=== PATIENT | female | born 1935 | race African-American/Black ===

== ENCOUNTER 2016-12-21 13:03 | Inpatient (IN) ==
[2016-12-21] MEDS ORDERED: Ipratropium/Albuterol Neb 3 ML IH ONE ×2 (13:20→17:32)
--- NOTE | 2016-12-21 13:31 | Emergency Department Note ---
Disposition Clinical Impression: Acute exacerbation of chronic obstructive airways disease Disposition: Admitted As Inpatient Condition: Fair SOB HPI - General Chief Complaint: ED Shortness of Breath/Dyspnea Stated Complaint: ENEDINA Time Seen by Provider: 12/21/16 13:07 Source: patient Nursing Notes Reviewed: Yes Vital Signs Reviewed: Yes - History of Present Illness Shortness of breath for the last several days which is constant but worse with exertion and she does have an associated dry cough, no hemoptysis. She does use home oxygen for COPD. Was seen by the home health nurse today. Also has chest pain which is pleuritic without radiation. It is intermittent lasting 2- 3 minutes at a time and currently does have chest discomfort now. She denies any pain or swelling of the lower extremities. Does have a history of congestive heart failure. Social history: No smoking - Related Data Home Medications Medication Instructions Recorded Confirmed Acetylcysteine [Nac] 600 mg PO TID 01/03/16 12/21/16 Aspirin 81 mg PO DAILY 01/03/16 12/21/16 Azathioprine [Imuran] 50 mg PO BID 01/03/16 12/21/16 Carvedilol [Coreg] 12.5 mg PO BID 01/03/16 12/21/16 Digoxin [Lanoxin] 0.125 mg PO DAILY 01/03/16 12/21/16 Furosemide [Lasix] 40 mg PO DAILY 01/03/16 12/21/16 Gabapentin [Neurontin] 600 mg PO HS 01/03/16 12/21/16 Guaifenesin [Mucinex] 600 mg PO TID 01/03/16 12/21/16 Levalbuterol [Xopenex INH] 2 puff PO Q6HR 01/03/16 12/21/16 Losartan Potassium [Cozaar] 100 mg PO DAILY 01/03/16 12/21/16 Lovastatin 40 mg PO DAILY 01/03/16 12/21/16 Melatonin [Melatin] 3 mg PO HS 01/03/16 12/21/16 Potassium Chloride [Klor-Con] 20 meq PO DAILY 01/03/16 12/21/16 Rivaroxaban [Xarelto] 20 mg PO DAILY 01/03/16 12/21/16 Verapamil HCl [Verapamil ER] 360 mg PO QAM 01/03/16 12/21/16 Dexlansoprazole [Dexilant] 60 mg PO BID 12/21/16 12/21/16 Famotidine [Pepcid] 40 mg PO DAILY 12/21/16 12/21/16 Previous Rx's Medication Instructions Recorded Sucralfate [Carafate] 1 gm PO BID #60 tablet 11/28/16 Allergies Allergy/AdvReac Type Severity Reaction Status Date / Time iodine Allergy Hives Verified 01/02/16 22:41 Penicillins [PCN] Allergy Hives Verified 01/02/16 22:41 ferric carboxymaltose AdvReac Intermediate Chest Pain Verified 08/17/16 16:11 [From Injectafer] IVP DYE Allergy Hives Uncoded 01/02/16 22:41 Review of Systems: Constitutional: No fever Vision: No blurred vision ENT: No rhinorrhea Respiratory: + cough Allergic: No allergies : No blood in urine GI: No blood in stool Hematologic: No bruising Dermatologic: No skin rash Musculoskeletal: No pain in the extremities Neuro: No numbness of the extremities Past Medical History - Past Medical History Medical history: Reports: atrial fibrillation, CHF, COPD, hyperlipidemia, hypertension, RA, other Surgical history: Reports: cancer surgery, cataract, knee replacement, orthopedic, other, pacemaker/AICD Psychiatric history: Reports: anxiety 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 EYES: PERRL, no scleral icterus. NOSE: The nose is normal in appearance without rhinorrhea Neck: No JVD Chest: Does have pain with palpation anterior chest wall RESP: Normal chest excursion with respiration; breath sounds with bilateral symmetric wheezing CARD: Regular rhythm, without murmurs, rub or gallop ABD: Non-distended; non-tender, soft,without rigidity, rebound or guarding, No pulsatile abdominal mass SKIN: Normal for age and race; warm and dry; no apparent lesions EXTREMITIES: Pulses are 2 plus and equal times 4 extremities, there is mild generalized lower extremity discomfort palpation and very minimal pretibial bilateral symmetric edema, no erythema or signs of infection - General General appearance: alert, anxious Course Vital Signs Temperature 99 F 12/21/16 13:04 Pulse Rate 65 12/21/16 13:04 Respiratory Rate 12 12/21/16 13:04 Blood Pressure 161/96 12/21/16 13:04 O2 Sat by Pulse Oximetry 97 12/21/16 13:04 Temperature 97.8 F 12/21/16 18:36 Pulse Rate 83 12/21/16 18:36 Respiratory Rate 18 12/21/16 20:28 Blood Pressure 154/66 12/21/16 18:36 O2 Sat by Pulse Oximetry 93 12/21/16 20:28 Oxygen Delivery Oxygen Delivery Nasal Cannula Shortness of Breath/Dyspnea - MDM Narrative Medical decision making narrative: Patient's symptoms most consistent with a COPD exacerbation and she will receive DuoNeb, chest x-ray, IV Decadron. If he does have an infiltrate this will be treated with antibiotics. Test results are pending. Review her EKG showing a paced rhythm with a rate of 66 1359 Did review the patient's lab results as well as x-ray. I did see the patient again a few minutes ago. The ventilation perfusion study is low probability and the patient will not be treated for pulmonary embolism. She is still clinically short of breath subjectively and I did write for another DuoNeb treatment and she will also receive IV Levaquin for COPD exacerbation. The hospitalist was paged. [phone] - Medical Records Medical records reviewed: Yes I reviewed the patient's medical records. - Lab Data Lab results reviewed: Yes I reviewed the patient's lab results. Result diagrams: 12/21/16 14:05 12/21/16 14:05 Lab Results 12/21/16 12/21/16 12/21/16 Range/Units 14:05 14:05 14:05 WBC 6.0 (4.3-11.1) K/mcL RBC 4.08 (3.82-4.97) M/mcL Hgb 11.1 L (11.5-15.4) g/dL Hct 37.2 (35.3-44.9) % MCV 91.2 (83.0-100.0) fL MCH 27.2 L (28.0-33.3) pg MCHC 29.8 L (31.6-35.5) g/dL RDW 12.5 (11.5-14.5) % Plt Count 208 (140-400) K/mcL MPV 9.9 (9.4-12.4) fL D-Dimer (0-500) ng/mLFEU Sodium 144 (136-145) mEq/L Potassium 3.8 (3.5-4.5) mEq/L Chloride 101 (98-109) mEq/L Carbon Dioxide 34 H (19-29) mEq/L BUN 11 (7-20) mg/dL Creatinine 0.73 (0.57-1.11) mg/dL Est GFR ( Amer) > 60 (> 60) Est GFR (Non-Af Amer) > 60 (> 60) BUN/Creatinine Ratio 15 (6-26) Glucose 81 (70-99) mg/dL Calculated Osmolality 296 (280-300) Calcium 9.2 (8.6-10.8) mg/dL Troponin I 0.02 (0-0.03) ng/mL B-Natriuretic Peptide (0-100) pg/mL 12/21/16 12/21/16 Range/Units 14:05 14:05 WBC (4.3-11.1) K/mcL RBC (3.82-4.97) M/mcL Hgb (11.5-15.4) g/dL Hct (35.3-44.9) % MCV (83.0-100.0) fL MCH (28.0-33.3) pg MCHC (31.6-35.5) g/dL RDW (11.5-14.5) % Plt Count (140-400) K/mcL MPV (9.4-12.4) fL D-Dimer 658 H (0-500) ng/mLFEU Sodium (136-145) mEq/L Potassium (3.5-4.5) mEq/L Chloride (98-109) mEq/L Carbon Dioxide (19-29) mEq/L BUN (7-20) mg/dL Creatinine (0.57-1.11) mg/dL Est GFR ( Amer) (> 60) Est GFR (Non-Af Amer) (> 60) BUN/Creatinine Ratio (6-26) Glucose (70-99) mg/dL Calculated Osmolality (280-300) Calcium (8.6-10.8) mg/dL Troponin I (0-0.03) ng/mL B-Natriuretic Peptide 87 (0-100) pg/mL - Radiology Data Radiology results reviewed: Yes I reviewed the patient's radiology results. Chest X-Ray 12/21/16 13:11 IMPRESSION: No acute process. D/ / Navin Eason MD / Navin Eason MD Interpreting Provider: Navin Eason MD Pulmonary Perfusion Imaging 12/21/16 15:00 IMPRESSION: Low probability for pulmonary embolism. D/ / Maico Wong MD / Maico Wong MD Interpreting Provider: Maico Wong MD
[2016-12-21] MEDS ORDERED: Dexamethasone 4 MG/ML VIAL IVP ONE (14:00)
[2016-12-21 14:13] LABS: Hematocrit 37.2 % (35.3-44.9); Hemoglobin 11.1 g/dL (11.5-15.4); Mean Corpuscular HGB Conc 29.8 g/dL (31.6-35.5); Mean Corpuscular Hemoglobin 27.2 pg (28.0-33.3); Mean Corpuscular Volume 91.2 fL (83.0-100.0); Mean Platelet Volume 9.9 fL (9.4-12.4); Platelet Count 208 K/mcL (140-400); Red Blood Count 4.08 M/mcL (3.82-4.97); Red Cell Distribution Width 12.5 % (11.5-14.5)
[2016-12-21 14:30] LABS: BUN/Creatinine Ratio 15 (6-26); Blood Urea Nitrogen 11 mg/dL (7-20); Calcium 9.2 mg/dL (8.6-10.8); Carbon Dioxide 34 mEq/L (19-29); Chloride 101 mEq/L (98-109); Glucose 81 mg/dL (70-99); Osmolality,Calculated 296 (280-300); Potassium 3.8 mEq/L (3.5-4.5); Sodium 144 mEq/L (136-145); eGFR For African Americans > 60 (> 60); eGFR For Non-African Americans > 60 (> 60)
[2016-12-21] MEDS: Dexamethasone 4 MG/ML VIAL IVP ONE (14:35)
[2016-12-21] MEDS ORDERED: Levofloxacin 750 MG/150 ML 750 MG/150 ML BAG IVPB ONE (17:32)
[2016-12-21] MEDS ORDERED: Naloxone 0.4 MG/ML INJ IVP PRN (18:05)
[2016-12-21] MEDS ORDERED: Acetaminophen 325 MG TABLET PO PRN (18:05)
--- NOTE | 2016-12-21 18:19 | Internal Med History&Physical ---
<Heide Cochran J - Last Filed: 12/21/16 18:34> Date of Encounter: 12/21/16 Time of Encounter: 18:17 Assessment and Plan (1) COPD (chronic obstructive pulmonary disease) Current visit: No Status: Chronic per hx. On home O2. Now with worsening SOB and wheezing on exam. D-dimer positive, V/Q scan with low probability. Cont IV Levaquin, steroids and nebs started in the ED. Sputum culture Pending. De-escalate ATB as clinically improves Qualifiers: COPD type: chronic bronchitis Chronic bronchitis type: simple Qualified Code(s): J41.0 - Simple chronic bronchitis (2) Chest pain Current visit: Yes Status: Acute With chest pain that started evening prior to admission; radiated to left arm. Initially not reproducible; however later reported CP with palpation. Hx CAD with LHC 2008. Initial troponin negative, no acute ST changes. Cycle troponin, NPO at midnight if troponins elevated stress test. Cont home ASA, BB, statin Qualifiers: Chest pain type: chest pain on breathing Qualified Code(s): R07.1 - Chest pain on breathing (3) Chronic systolic CHF (congestive heart failure) Current visit: Yes Status: Acute TTE 06/2016 with EF 40-45% and moderate systolic dysfunction. With trace lower extremity edema on exam, does not appear overtly overloaded. Continue home Lasix, ARB, digoxin (4) A-fib Current visit: No Status: Chronic per hx, rate controlled. Cont home CCB, BB, Xarelto Qualifiers: Atrial fibrillation type: paroxysmal Qualified Code(s): I48.0 - Paroxysmal atrial fibrillation (5) Anemia Current visit: No Status: Chronic Per history, follows with oncology. Hgb 11 which appears at baseline. Intermittently monitor Qualifiers: Anemia type: iron deficiency Iron deficiency anemia type: chronic blood loss Qualified Code(s): D50.0 - Iron deficiency anemia secondary to blood loss (chronic) (6) DVT prophylaxis Current visit: Yes Status: Acute Xarelto Internal Medicine - H&P: HPI Chief complaint: SOB and CP Admitted From: Home Plans for Post Hospital Care: Home History of present illness: Ms. Durant is a 81 year old female past medical history CAD, COPD, A. fib on several toe, CHF and chronic anemia who presented to [facility] on 12/21/2016 with complaints of shortness of breath and chest pain. She was found to be in a COPD exacerbation and was admitted for IV steroids, HTB and ACS rule out. Information obtained from chart review and patient report. Patient reports chest pain or shortness of breath started yesterday evening and has progressively gotten worse. Says her home health care RN says she did not look at advised her to go to the ER. Still with shortness of breath but says she feels a little better, reports intermittent nonproductive cough at times. No sick contacts that she is aware of. Her chest pain is midsternal radiates to left arm last night. Described as sharp worsened with a deep breath. Past Med Surg Social Fam HX - Past Medical History Medical history: atrial fibrillation, CHF, COPD, hyperlipidemia, hypertension, RA, other Psychiatric history: anxiety - Past Surgical History Surgical History: cancer surgery, cataract, knee replacement, orthopedic, other , pacemaker/AICD - Social History Smoking Status: Never smoker Smokeless Tobacco Status: No Alcohol use: none Drug use: none - Family History Sister Hx Family Endocrine Disorder: Yes Internal Medicine - H&P: Meds Acetylcysteine [Nac] 600 mg PO TID 01/03/16 [History] Aspirin 81 mg PO DAILY 01/03/16 [History] Azathioprine [Imuran] 50 mg PO BID 01/03/16 [History] Carvedilol [Coreg] 12.5 mg PO BID 01/03/16 [History] Digoxin [Lanoxin] 0.125 mg PO DAILY 01/03/16 [History] Furosemide [Lasix] 40 mg PO DAILY 01/03/16 [History] Gabapentin [Neurontin] 600 mg PO HS 01/03/16 [History] Guaifenesin [Mucinex] 600 mg PO TID 01/03/16 [History] Levalbuterol [Xopenex INH] 2 puff PO Q6HR 01/03/16 [History] Losartan Potassium [Cozaar] 100 mg PO DAILY 01/03/16 [History] Lovastatin 40 mg PO DAILY 01/03/16 [History] Melatonin [Melatin] 3 mg PO HS 01/03/16 [History] Potassium Chloride [Klor-Con] 20 meq PO DAILY 01/03/16 [History] Rivaroxaban [Xarelto] 20 mg PO DAILY 01/03/16 [History] Verapamil HCl [Verapamil ER] 360 mg PO QAM 01/03/16 [History] Sucralfate [Carafate] 1 gm PO BID #60 tablet 11/28/16 [Rx] Dexlansoprazole [Dexilant] 60 mg PO BID 12/21/16 [History] Famotidine [Pepcid] 40 mg PO DAILY 12/21/16 [History] Allergies iodine Allergy (Verified 01/02/16 22:41) Hives Penicillins [PCN] Allergy (Verified 01/02/16 22:41) Hives ferric carboxymaltose [From Injectafer] Adverse Reaction (Intermediate, Verified 08/17/16 16:11) Chest Pain 08/17/16 ABOUT 20MIN AFTER INFUSION COMPLETE PT REPORTED LIGHT HEADEDNESS, CHEST PAIN, AND HAD ELEVATED BLOOD PRESSURE. HYDROCORTISONE AND BENADRYL GIVEN WITH GOOD RELIEF. IVP DYE Allergy (Uncoded 01/02/16 22:41) Hives All Systems PM: A 10-system review of systems was performed and is negative for pertinent findings except as documented above in the HPI. - Constitutional Constitutional: no chills, no fever(s), no night sweats - EENT Eyes: no change in vision, no discharge, no pain, no photophobia Ears: no ear discharge, no ear pain, no tinnitus Nose, mouth and throat: no dysphagia, no nasal discharge, no neck pain, no sore throat - Cardiovascular Cardiovascular ROS IM: chest pain, dyspnea, dyspnea on exertion, no diaphoresis , no lightheadedness, no palpitations, no syncope - Respiratory Respiratory: dyspnea on exertion, no cough, no dyspnea, no wheezing, no excessive phlegm production - Gastrointestinal Gastrointestinal: no abdominal pain, no diarrhea, no hematemesis, no hematochezia, no melena, no nausea, no vomiting - Genitourinary Genitourinary: no change in urinary stream, no dysuria, no flank pain, no hematuria - Musculoskeletal Musculoskeletal ROS IM: no numbness, no tingling - Integumentary Integumentary IM: no rash, no unusual bruising - Neurological Neurological ROS: no confusion, no convulsions, no focal weakness, no numbness, no tingling, no tremor(s) - Hematologic/Lymphatic Hematologic/Lymphatic: no easy bruising - Constitutional Vitals: Temp Pulse Resp BP Pulse Ox 99 F 62 18 166/111 98 12/21/16 13:04 12/21/16 17:14 12/21/16 17:50 12/21/16 17:14 12/21/16 17:50 General appearance: Present: mild distress, A&O X 3 - Head Head exam: Present: atraumatic, normocephalic - Eye Eye exam: Present: PERRL, conjuntiva pink, sclera anicteric Pupils: Present: PERRL - Neck Neck exam general surgery: Present: supple, trachea midline. Absent: lymphadenopathy - Respiratory Respiratory exam: Present: respiratory distress, wheezes. Absent: accessory muscle use, rales, rhonchi - Cardiovascular Cardiovascular exam: Present: RRR (PPM), +S1, +S2. Absent: diastolic murmur, gallop, rubs, systolic murmur - GI/Abdominal GI/Abdominal exam: Present: normal bowel sounds, soft, no peritoneal signs. Absent: distended, tenderness - Extremities Exam Extremities exam: Present: warm, radial pulses palpable and symetrical. Absent : calf tenderness, cyanotic, pedal edema - Neurological Exam Neurological exam: Present: CN II-XII intact, oriented X3, no focal deficits. Absent: pronater drift, facial droop, speech deficit - Skin Skin exam: Present: dry, intact Internal Med - H&P Results - Labs CBC & Chem 7: 12/21/16 14:05 12/21/16 14:05 <Moisés Lowry - Last Filed: 12/21/16 18:48> Date of Encounter: 12/21/16 Time of Encounter: 18:00 Internal Medicine - H&P: HPI History of present illness: Ms. Durant is a 81 year old female All Systems PM: A 10-system review of systems was performed and is negative for pertinent findings except as documented above in the HPI. - Constitutional Vitals: Temp Pulse Resp BP Pulse Ox 97.8 F 83 16 154/66 94 12/21/16 18:36 12/21/16 18:36 12/21/16 18:36 12/21/16 18:36 12/21/16 18:36 Internal Med - H&P Results - Labs CBC & Chem 7: 12/21/16 14:05 12/21/16 14:05 - Attending Attestation I examined this patient and my medical decision-making was reviewed with the nurse practitioner. I agree with the documented history of present illness, review of systems, past medical, surgical social and family histories and examination findings, disposition and treatment plan as described above except to any changes set forth below. 81-year-old female patient with history of COPD, chronic respiratory failure on home oxygen, A. fib status post ablation and pacemaker placement, chronic congestive heart failure presented to the ER with complaints of worsening shortness of breath along with some cough. She has also been having chest pain which worsens with deep breaths. It is central in location and radiates to the left arm. No sputum production. Was treated with bronchodilators and Decadron in the ER with some improvement in her symptoms. On examination she still has significant expiratory wheezing and reproducible chest wall tenderness. S1-S2 normal.. EKG shows paced rhythm. Chest x-ray does not show any acute infiltrate. Acute exacerbation of COPD: We will treat with scheduled bronchodilators, O2 supplementation, IV steroids. High risk for complications. Chest pain: Does have history of hypertension and chronic congestive heart failure. She does have reproducible chest wall tenderness. Pain could be related to costochondritis but given her history, we will trend troponins. We will get 2-D echocardiogram to look for wall motion abnormalities. Chronic CHF systolic: Not in acute exacerbation. Continue home medications. A. fib status post ablation and permanent pacemaker: Continue Xarelto for anticoagulation.. Heart rate is well controlled.
[2016-12-21] MEDS: Gabapentin 300 MG CAPSULE PO SCH (20:15)
[2016-12-21] MEDS: Ipratropium/Albuterol Neb 3 ML IH SCH ×2 (20:28→23:49)
[2016-12-21] MEDS: Melatonin 3 MG TABLET PO SCH (22:05)
[2016-12-21] MEDS: methylPREDNISolone 125 MG/2 ML VIAL IVP SCH (23:30)
[2016-12-22 02:18] LABS: Basophils % 0.1 %; Eosinophils % 0.1 %; Hematocrit 36.3 % (35.3-44.9); Hemoglobin 11.4 g/dL (11.5-15.4); Immature Granulocytes % 0.4 % (0-4); Lymphocytes # 0.3 K/mcL (0.6-4.6); Lymphocytes % 3.7 %; Mean Corpuscular HGB Conc 31.4 g/dL (31.6-35.5); Mean Corpuscular Hemoglobin 28.6 pg (28.0-33.3); Mean Corpuscular Volume 91.2 fL (83.0-100.0); Mean Platelet Volume 10.7 fL (9.4-12.4); Monocytes # 0.1 K/mcL (0.0-1.3); Monocytes % 0.8 %; Neutrophils # 6.9 K/mcL (1.6-8.9); Platelet Count 205 K/mcL (140-400); Red Blood Count 3.98 M/mcL (3.82-4.97); Red Cell Distribution Width 12.5 % (11.5-14.5); Segmented Neutrophils % 94.9 %
[2016-12-22 02:38] LABS: Alanine Aminotransferase 9 Units/L (0-55); Albumin 3.2 g/dL (3.5-5.0); Albumin/Globulin Ratio 0.8 (1.1-2.2); Alkaline Phosphatase 101 Units/L (38-126); Aspartate Amino Transferase 13 Units/L (5-34); BUN/Creatinine Ratio 17 (6-26); Bilirubin,Total 0.3 mg/dL (0.2-1.2); Blood Urea Nitrogen 14 mg/dL (7-20); Calcium 9.4 mg/dL (8.6-10.8); Carbon Dioxide 31 mEq/L (19-29); Chloride 101 mEq/L (98-109); Chol/HDL Ratio 2.8 (0-4.9); Cholesterol 162 mg/dL (< 200); Globulin 3.8 g/dL (2.4-3.5); Glucose 162 mg/dL (70-99); HDL Cholesterol 58 mg/dL (40-59); LDL Cholesterol,Calculated 84 mg/dL (0-99); Osmolality,Calculated 298 (280-300); Potassium 3.8 mEq/L (3.5-4.5); Sodium 142 mEq/L (136-145); Triglycerides 99 mg/dL (< 150); eGFR For African Americans > 60 (> 60); eGFR For Non-African Americans > 60 (> 60)
[2016-12-22] MEDS: Ipratropium/Albuterol Neb 3 ML IH SCH ×6 (04:34→23:56)
[2016-12-22] MEDS: Levalbuterol 1 PUFF INHALER IH SCH ×4 (04:36→19:44)
[2016-12-22] MEDS: methylPREDNISolone 125 MG/2 ML VIAL IVP SCH ×3 (08:40→23:26)
[2016-12-22] MEDS: Verapamil ER (24 HR) 180 MG TABLET.ER PO SCH (08:41)
[2016-12-22] MEDS: Famotidine 20 MG TABLET PO SCH (08:41)
[2016-12-22] MEDS: *HR* Digoxin 0.125 MG TABLET PO SCH (08:41)
[2016-12-22] MEDS: Furosemide 40 MG TABLET PO SCH (08:41)
[2016-12-22] MEDS: Aspirin 81 MG TAB.CHEW PO SCH (08:41)
[2016-12-22] MEDS: *HR* Rivaroxaban 10 MG TABLET PO SCH (08:41)
[2016-12-22] MEDS: *HR* Morphine 2 MG/ML SYRINGE IVP PRN ×2 (08:42→14:00)
[2016-12-22] MEDS: Levofloxacin 500 MG/100 ML 500 MG/100 ML BAG IVPB SCH (08:42)
[2016-12-22] MEDS ORDERED: Azithromycin 500 MG in D5% in Water 250 ML IVPB SCH (10:00)
[2016-12-22] MEDS: *HR* HYDROcodone/Acet 5/325 mg TABLET PO PRN ×2 (15:23→22:10)
--- NOTE | 2016-12-22 17:16 | Internal Med Progress Note ---
Date of Encounter: 12/22/16 Time of Encounter: 09:25 - Assessment and plan (1) COPD (chronic obstructive pulmonary disease) Current Visit: No Status: Chronic Assessment and plan: Acute exacerbation. Patient has dry, hacking cough that is frequent, nonproductive. She is receiving IV antibiotics, scheduled DuoNeb absent, steroids. She is afebrile. I have added Mucinex scheduled twice a day. Continue to monitor patient's condition Telemetry Continuous pulse ox IV antibiotics D escalated by mouth Steroids Mucinex Chest X-Ray 12/21/16 13:11 IMPRESSION: No acute process. D/ / Navin Eason MD / Navin Eason MD Interpreting Provider: Navin Eason MD Pulmonary Perfusion Imaging 12/21/16 15:00 IMPRESSION: Low probability for pulmonary embolism. D/ / Maico Wong MD / Maico Wong MD Interpreting Provider: Maico Wong MD Qualifiers: COPD type: chronic bronchitis Chronic bronchitis type: simple Qualified Code(s): J41.0 - Simple chronic bronchitis (2) A-fib Current Visit: No Status: Chronic Assessment and plan: Rate controlled. Continue calcium channel erika, beta erika, anticoagulation. Qualifiers: Atrial fibrillation type: paroxysmal Qualified Code(s): I48.0 - Paroxysmal atrial fibrillation (3) Anemia Current Visit: No Status: Chronic Assessment and plan: Chronic. Patient follows with oncology. Hemoglobin is stable and at baseline at this time. Continue to monitor. Qualifiers: Anemia type: iron deficiency Iron deficiency anemia type: chronic blood loss Qualified Code(s): D50.0 - Iron deficiency anemia secondary to blood loss (chronic) (4) Chest pain Current Visit: Yes Status: Acute Assessment and plan: Patient had chest pain started the evening prior to admission, it radiated to her left arm. Patient told admitting physician chest pain was palpable and re- created. History of coronary artery disease with [facility] in 2008. Troponins have been negative, BNP was negative 4 after an elevated d-dimer of 658. Patient also has chest pain from dry, hacking cough that she has. Echocardiogram was done today showed LVEF of 45% with mildly dilated left ventricle. There is mild concentric left ventricular hypertrophy and mild global left ventricular systolic dysfunction. There is atypical septal motion consistent with a paced rhythm normal right ventricular structure and function and superiorly dilated left atrium. Somewhat mildly dilated right atrium with mild pulmonary hypertension. There is a device lead visualized in the right atrium and right ventricle. There is no significant valvular dysfunction. Remains unchanged from prior study in June,. She has been seen by cardiology inpatient approximately one year ago. Qualifiers: Chest pain type: chest pain on breathing Qualified Code(s): R07.1 - Chest pain on breathing (5) Chronic systolic CHF (congestive heart failure) Current Visit: Yes Status: Chronic Assessment and plan: Patient had SINDY in June 2016 with EF of 40-45% and moderate systolic dysfunction. Patient has minimal lower extremity ankle edema, there are no crackles heard. She appears to be euvolemic. She will continue her Lasix, ARB , and dig (6) DVT prophylaxis Current Visit: Yes Status: Acute Assessment and plan: She is currently anticoagulated on Xarelto. - Time Spent With Patient less than 15 minutes - Subjective Interval history: Patient was seen and assessed at about 9:25 AM. She is pleasant, alert, oriented with a dry, hacking cough. It is frequent. Patient reports rib pain from coughing. Wheezing and rhonchi are heard posteriorly. I have added Mucinex scheduled, as well as DuoNeb scheduled. He is wearing supplemental oxygen, sats are 92%. Patient is receiving IV Levaquin. Continue the steroids and nebulizers. I did not attempt to de-escalate the IV antibiotics today due to the fact that her IV infiltrated and we were not able to obtain IV access for several hours. - Constitutional Vitals: Temp Pulse Resp BP Pulse Ox 98.3 F 59 16 122/49 94 12/22/16 15:22 12/22/16 15:22 12/22/16 16:13 12/22/16 15:22 12/22/16 16:13 General appearance: Present: mild distress, A&O X 3, pleasant, answers questions appropriately - Head Head exam: Present: normal inspection - Eye Eye exam: Present: normal appearance, conjuntiva pink - ENT ENT exam: Present: mucous membranes moist, normal exam - Neck Neck exam general surgery: Absent: lymphadenopathy, tenderness - Respiratory Respiratory exam: Present: chest wall tenderness, decreased breath sounds, rhonchi, wheezes. Absent: accessory muscle use, rales, respiratory distress - Cardiovascular Cardiovascular exam: Present: RRR, +S1, +S2 - Expanded Cardiovascular Exam Peripheral pulses: 1+: Dorsalis Pedis (L) PM, Dorsalis Pedis (R) PM - GI/Abdominal GI/Abdominal exam: Present: normal bowel sounds, soft. Absent: hepatomegaly, tenderness - Extremities Exam Extremities exam: Present: warm, radial pulses palpable and symetrical. Absent : tenderness - Neurological Exam Neurological exam: Present: alert, oriented X3. Absent: facial droop, speech deficit - Skin Skin exam: Present: dry, intact, warm. Absent: rash Internal Medicine: Result - Labs CBC & Chem 7: 12/22/16 01:32 12/22/16 01:32 Labs: Short CBC 12/22/16 Range/Units 01:32 WBC 7.3 (4.3-11.1) K/mcL Hgb 11.4 L (11.5-15.4) g/dL Hct 36.3 (35.3-44.9) % Plt Count 205 (140-400) K/mcL Neutrophils # 6.9 (1.6-8.9) K/mcL BMP 12/22/16 01:32 Sodium 142 Potassium 3.8 Chloride 101 Carbon Dioxide 31 H BUN 14 Creatinine 0.84 Glucose 162 H Calcium 9.4 Cardiac Enzymes 12/21/16 12/22/16 12/22/16 Range/Units 22:03 01:32 06:59 Troponin I 0.01 0.02 0.01 (0-0.03) ng/mL Liver Function 12/22/16 Range/Units 01:32 Total Bilirubin 0.3 (0.2-1.2) mg/dL AST 13 (5-34) Units/L ALT 9 (0-55) Units/L Alkaline Phosphatase 101 (38-126) Units/L Albumin 3.2 L (3.5-5.0) g/dL - ABG Interpretation ABG results: PT/INR, D-dimer D-Dimer 658 ng/mLFEU (0-500) H 12/21/16 14:05 Consult Discharge Plan - Plan Referrals: Cholo Leslie MD [Primary Care Provider] -
--- NOTE | 2016-12-22 17:25 | Electrocardiograph Report ---
[address] [place] [address] Test Date: 2016-12-21 Pat Name: Ellie Durant Department: 102 Room: 3B23 Gender: F [employer]r: Azeem : 1935 Requested By: Chandrakant Singh Order Number: [id number] Reading MD: Zara Padilla Measurements Intervals [place] Rate: 66 P: 141 [place]: 247 QRS: -50 QRSD: 141 T: 80 QT: 404 QTc: 418 Interpretive Statements ELECTRONIC ATRIAL PACEMAKER ELECTRONIC VENTRICULAR PACEMAKER ABNORMAL RHYTHM ECG Electronically Signed On 12-22-2016 17:24:33 EDT by Zara Padilla
[2016-12-22] MEDS: Gabapentin 300 MG CAPSULE PO SCH (21:00)
[2016-12-22] MEDS: Melatonin 3 MG TABLET PO SCH (21:00)
[2016-12-23] MEDS: Ipratropium/Albuterol Neb 3 ML IH SCH ×6 (03:55→23:51)
[2016-12-23] MEDS: Levalbuterol 1 PUFF INHALER IH SCH ×4 (03:57→19:42)
[2016-12-23] MEDS: *HR* HYDROcodone/Acet 5/325 mg TABLET PO PRN (05:40)
[2016-12-23] MEDS: Levofloxacin 500 MG/100 ML 500 MG/100 ML BAG IVPB SCH (09:29)
[2016-12-23] MEDS: Aspirin 81 MG TAB.CHEW PO SCH (09:30)
[2016-12-23] MEDS: Verapamil ER (24 HR) 180 MG TABLET.ER PO SCH (09:32)
[2016-12-23] MEDS: methylPREDNISolone 125 MG/2 ML VIAL IVP SCH ×3 (09:33→23:18)
[2016-12-23] MEDS: *HR* Digoxin 0.125 MG TABLET PO SCH (09:34)
[2016-12-23] MEDS: Famotidine 20 MG TABLET PO SCH (09:34)
[2016-12-23] MEDS: *HR* Rivaroxaban 10 MG TABLET PO SCH (09:34)
[2016-12-23] MEDS: Furosemide 40 MG TABLET PO SCH (09:36)
--- NOTE | 2016-12-23 10:38 | Internal Med Progress Note ---
Date of Encounter: 12/23/16 Time of Encounter: 10:10 - Assessment and plan (1) COPD (chronic obstructive pulmonary disease) Current Visit: No Status: Chronic Assessment and plan: Acute exacerbation. Patient has dry, hacking cough that is frequent, nonproductive. She is receiving by mouth antibiotics due to repeated IV infiltration, scheduled DuoNeb absent, steroids, Mucinex twice a day. She is afebrile. Continue to monitor patient's condition Telemetry Continuous pulse ox Continue antibiotics Steroids Mucinex Chest X-Ray 12/21/16 13:11 IMPRESSION: No acute process. D/ / Navin Eason MD / Navin Eason MD Interpreting Provider: Navin Eason MD Pulmonary Perfusion Imaging 12/21/16 15:00 IMPRESSION: Low probability for pulmonary embolism. D/ / Maico Wong MD / Maico Wong MD Interpreting Provider: Maico Wong MD Qualifiers: COPD type: chronic bronchitis Chronic bronchitis type: simple Qualified Code(s): J41.0 - Simple chronic bronchitis (2) A-fib Current Visit: No Status: Chronic Assessment and plan: Rate controlled. Continue calcium channel erika, beta erika, anticoagulation. Rate in the 60s and regular. Qualifiers: Atrial fibrillation type: paroxysmal Qualified Code(s): I48.0 - Paroxysmal atrial fibrillation (3) Anemia Current Visit: No Status: Chronic Assessment and plan: Hemoglobin has remained steady, 11.4 today. Continue to monitor and repair to transfuse as necessary. Qualifiers: Anemia type: iron deficiency Iron deficiency anemia type: chronic blood loss Qualified Code(s): D50.0 - Iron deficiency anemia secondary to blood loss (chronic) (4) Chest pain Current Visit: Yes Status: Acute Assessment and plan: Echocardiogram was done, showed LVEF of 45% with mildly dilated left ventricle. There is mild concentric left ventricular hypertrophy and mild global left ventricular systolic dysfunction. There is atypical septal motion consistent with a paced rhythm normal right ventricular structure and function and superiorly dilated left atrium. Somewhat mildly dilated right atrium with mild pulmonary hypertension. There is a device lead visualized in the right atrium and right ventricle. There is no significant valvular dysfunction. Remains unchanged from prior study in June,. She has been seen by cardiology inpatient approximately one year ago. She now denies chest pain today and reports right mid back pain from cough. We will continue to monitor her condition. She remains on telemetry. We are monitoring pulse ox and treating COPD exacerbation. Qualifiers: Chest pain type: chest pain on breathing Qualified Code(s): R07.1 - Chest pain on breathing (5) Chronic systolic CHF (congestive heart failure) Current Visit: Yes Status: Chronic Assessment and plan: Patient had SINDY in June 2016 with EF of 40-45% and moderate systolic dysfunction. Patient has minimal lower extremity ankle edema, there are no crackles heard. She appears to be euvolemic. She will continue her Lasix, ARB , and dig Echocardiogram on December 21 remains largely unchanged from study in June, other than the mildly dilated left ventricle that was normal in size, wall thickness and function in June. (6) DVT prophylaxis Current Visit: Yes Status: Acute Assessment and plan: She is currently anticoagulated on Xarelto. - Time Spent With Patient less than 15 minutes - Subjective Interval history: Patient was seen at 10:10 AM. I was called into the room by primary nurse. Patient's IV has infiltrated and patient is exceptionally tearful. The same scenario happened yesterday. I started patient's IV yesterday she was exceptionally tearful, anxious during the procedure. I discussed patient feeling anxiety, she agreed. I will start her on Ativan 0.5 mg by mouth 3 times a day when necessary anxiety. Patient is agreeable to this. Patient does not appear to be coughing as much today, however, she reports the cough is just as frequent as it was. Cough is dry and nonproductive and she reports no relief from the Mucinex. She still has expiratory wheezing heard in all posterior haque and upper anterior. She is still on oxygen. She is not in respiratory distress, she speaks easily in sentences. She reports posterior right back pain with cough. We will continue the Levaquin by mouth since her IVs have infiltrated, continue the steroids and nebulizers when necessary. Patient is not ready for discharge. - Constitutional Vitals: Temp Pulse Resp BP Pulse Ox 97.4 F L 65 16 163/76 96 12/23/16 06:59 12/23/16 06:59 12/23/16 07:45 12/23/16 07:45 12/23/16 07:45 General appearance: Present: mild distress, A&O X 3, pleasant, answers questions appropriately - Head Head exam: Present: normal inspection - Eye Eye exam: Present: normal appearance, conjuntiva pink - ENT ENT exam: Present: mucous membranes moist, normal exam - Neck Neck exam general surgery: Present: thyromegaly. Absent: lymphadenopathy, tenderness - Respiratory Respiratory exam: Present: chest wall tenderness, decreased breath sounds, wheezes. Absent: CTAB, rales, respiratory distress, rhonchi, tachypnea - Cardiovascular Cardiovascular exam: Present: RRR, +S1, +S2. Absent: diastolic murmur, irregular rhythm, JVD, systolic murmur - GI/Abdominal GI/Abdominal exam: Present: normal bowel sounds, soft. Absent: hepatomegaly, tenderness - Extremities Exam Extremities exam: Present: normal capillary refill, warm, radial pulses palpable and symetrical. Absent: pedal edema, tenderness - Neurological Exam Neurological exam: Present: alert, oriented X3, no focal deficits. Absent: facial droop, speech deficit - Skin Skin exam: Present: dry, intact, normal color, rash. Absent: warm Internal Medicine: Result - Labs CBC & Chem 7: 12/22/16 01:32 12/22/16 01:32 - ABG Interpretation ABG results: PT/INR, D-dimer D-Dimer 658 ng/mLFEU (0-500) H 12/21/16 14:05 Consult Discharge Plan - Plan Referrals: Cholo Leslie MD [Primary Care Provider] -
[2016-12-23] MEDS: levoFLOXacin 750 MG TABLET PO SCH (11:13)
[2016-12-23] MEDS: *HR* LORazepam 0.5 MG TABLET PO PRN (11:13)
[2016-12-23] MEDS: Gabapentin 300 MG CAPSULE PO SCH (20:37)
[2016-12-23] MEDS: Melatonin 3 MG TABLET PO SCH (20:38)
[2016-12-24] MEDS: *HR* HYDROcodone/Acet 5/325 mg TABLET PO PRN (03:31)
[2016-12-24 03:37] LABS: BUN/Creatinine Ratio 25 (6-26); Blood Urea Nitrogen 20 mg/dL (7-20); Carbon Dioxide 32 mEq/L (19-29); Chloride 97 mEq/L (98-109); Glucose 253 mg/dL (70-99); Osmolality,Calculated 303 (280-300); Potassium 3.3 mEq/L (3.5-4.5); Sodium 141 mEq/L (136-145); eGFR For African Americans > 60 (> 60); eGFR For Non-African Americans > 60 (> 60)
[2016-12-24 03:41] LABS: Basophils % 0.1 %; Hematocrit 36.7 % (35.3-44.9); Hemoglobin 11.1 g/dL (11.5-15.4); Immature Granulocytes % 1.1 % (0-4); Lymphocytes # 0.2 K/mcL (0.6-4.6); Lymphocytes % 2.1 %; Mean Corpuscular HGB Conc 30.2 g/dL (31.6-35.5); Mean Corpuscular Hemoglobin 27.7 pg (28.0-33.3); Mean Corpuscular Volume 91.5 fL (83.0-100.0); Mean Platelet Volume 10.6 fL (9.4-12.4); Monocytes # 0.2 K/mcL (0.0-1.3); Monocytes % 1.9 %; Neutrophils # 9.8 K/mcL (1.6-8.9); Platelet Count 208 K/mcL (140-400); Red Blood Count 4.01 M/mcL (3.82-4.97); Red Cell Distribution Width 12.4 % (11.5-14.5); Segmented Neutrophils % 94.8 %
[2016-12-24] MEDS: Ipratropium/Albuterol Neb 3 ML IH SCH ×6 (03:54→23:51)
[2016-12-24] MEDS: Levalbuterol 1 PUFF INHALER IH SCH ×4 (03:56→23:34)
[2016-12-24] MEDS ORDERED: Ondansetron 4 MG/2 ML VIAL IVP PRN (06:47)
[2016-12-24] MEDS: Famotidine 20 MG TABLET PO SCH (07:00)
[2016-12-24] MEDS: *HR* Rivaroxaban 10 MG TABLET PO SCH (07:00)
[2016-12-24] MEDS: Furosemide 40 MG TABLET PO SCH (07:00)
[2016-12-24] MEDS: Aspirin 81 MG TAB.CHEW PO SCH (07:01)
[2016-12-24] MEDS: Verapamil ER (24 HR) 180 MG TABLET.ER PO SCH (07:01)
[2016-12-24] MEDS: *HR* Digoxin 0.125 MG TABLET PO SCH (07:02)
[2016-12-24] MEDS: methylPREDNISolone 125 MG/2 ML VIAL IVP SCH ×3 (07:05→23:43)
--- NOTE | 2016-12-24 10:56 | Internal Med Progress Note ---
Date of Encounter: 12/24/16 Time of Encounter: 10:30 - Assessment and plan (1) COPD (chronic obstructive pulmonary disease) Current Visit: No Status: Chronic Assessment and plan: Patient appears to be improved today. She says that her cough is less frequent , still dry and nonproductive. Lungs are clear, but diminished. Patient will continue steroids, Mucinex breathing treatments and antibiotics. Patient has continuous pulse ox we will continue to monitor labs and vital signs. Qualifiers: COPD type: chronic bronchitis Chronic bronchitis type: simple Qualified Code(s): J41.0 - Simple chronic bronchitis (2) A-fib Current Visit: No Status: Chronic Assessment and plan: When I assessed patient this morning, rate was in the 60s. Rhythm was regular. His rate controlled. She is taking 12.5 mg carvedilol twice daily and digoxin , as well. Cardiology consult for bradycardia. Qualifiers: Atrial fibrillation type: paroxysmal Qualified Code(s): I48.0 - Paroxysmal atrial fibrillation (3) Anemia Current Visit: No Status: Chronic Assessment and plan: Hemoglobin has remained steady, 11.4 today. Continue to monitor and repair to transfuse as necessary. Qualifiers: Anemia type: iron deficiency Iron deficiency anemia type: chronic blood loss Qualified Code(s): D50.0 - Iron deficiency anemia secondary to blood loss (chronic) (4) Chest pain Current Visit: Yes Status: Acute Assessment and plan: Echocardiogram was done, showed LVEF of 45% with mildly dilated left ventricle. There is mild concentric left ventricular hypertrophy and mild global left ventricular systolic dysfunction. There is atypical septal motion consistent with a paced rhythm normal right ventricular structure and function and superiorly dilated left atrium. Somewhat mildly dilated right atrium with mild pulmonary hypertension. There is a device lead visualized in the right atrium and right ventricle. There is no significant valvular dysfunction. Remains unchanged from prior study in June,. She has been seen by cardiology inpatient approximately one year ago. She now denies chest pain today. We will continue to monitor her condition. She remains on telemetry. We are monitoring pulse ox and treating COPD exacerbation. Qualifiers: Chest pain type: chest pain on breathing Qualified Code(s): R07.1 - Chest pain on breathing (5) Chronic systolic CHF (congestive heart failure) Current Visit: Yes Status: Chronic Assessment and plan: Patient had SINDY in June 2016 with EF of 40-45% and moderate systolic dysfunction. Patient has minimal lower extremity ankle edema, there are no crackles heard. She appears to be euvolemic. She will continue her Lasix, ARB , and dig Echocardiogram on December 21 remains largely unchanged from study in June, other than the mildly dilated left ventricle that was normal in size, wall thickness and function in June. (6) DVT prophylaxis Current Visit: Yes Status: Acute Assessment and plan: She is currently anticoagulated on Xarelto. - Time Spent With Patient less than 15 minutes - Subjective Interval history: Patient was seen and assessed about 10:30 AM. She states that she does not feel well again today. She reports that she is having episodes of bradycardia and shortness of breath. She is lying in bed currently though wet washcloth on her forehead. Patient does have a pacemaker, and states that cardiology has told her in the past that she will most likely need to have a defibrillator at some point. I spoke with the primary nurse, I never been made aware of this bradycardia other than by the patient. Primary nurse reports that she is having bradycardia lasting about 30 seconds, every 2 hours or so. I have put in a cardiology consult. When I saw patient her resting heart rate was 60, rate was regular. - Constitutional Vitals: Temp Pulse Resp BP Pulse Ox 98.0 F 59 16 133/69 98 12/24/16 06:28 12/24/16 06:28 12/24/16 07:25 12/24/16 09:34 12/24/16 08:00 General appearance: Present: mild distress, A&O X 3, pleasant, answers questions appropriately - Head Head exam: Present: normal inspection - Eye Eye exam: Present: normal appearance, conjuntiva pink - Neck Neck exam general surgery: Present: normal inspection. Absent: lymphadenopathy , tenderness - Respiratory Respiratory exam: Present: CTAB. Absent: chest wall tenderness, rales, respiratory distress, stridor, wheezes - Cardiovascular Cardiovascular exam: Present: bradycardia, RRR, +S1, +S2. Absent: diastolic murmur, irregular rhythm, rubs, systolic murmur - GI/Abdominal GI/Abdominal exam: Present: normal bowel sounds, soft. Absent: distended, hepatomegaly, tenderness - Extremities Exam Extremities exam: Present: normal capillary refill, normal inspection. Absent: pedal edema, tenderness - Neurological Exam Neurological exam: Present: alert, oriented X3. Absent: no focal deficits, facial droop, speech deficit - Skin Skin exam: Present: dry, normal color, warm. Absent: rash Internal Medicine: Result - Labs CBC & Chem 7: 12/24/16 02:34 12/24/16 02:34 Labs: Short CBC 12/24/16 Range/Units 02:34 WBC 10.4 (4.3-11.1) K/mcL Hgb 11.1 L (11.5-15.4) g/dL Hct 36.7 (35.3-44.9) % Plt Count 208 (140-400) K/mcL Neutrophils # 9.8 H (1.6-8.9) K/mcL BMP 12/24/16 02:34 Sodium 141 Potassium 3.3 L Chloride 97 L Carbon Dioxide 32 H BUN 20 Creatinine 0.80 Glucose 253 H Calcium 9.0 - ABG Interpretation ABG results: PT/INR, D-dimer D-Dimer 658 ng/mLFEU (0-500) H 12/21/16 14:05 Consult Discharge Plan - Plan Referrals: Cholo Leslie MD [Primary Care Provider] -
--- NOTE | 2016-12-24 11:43 | Event Note ---
Date of Encounter: 12/24/16 Time of Encounter: 11:30 - Cardiology Event Note Patient with reported "bradycardia per telemetry." Reviewed telemetry with a lot of artifact. Pacemaker device was interrogated and noted to have normal functioning pacemaker. No bradycardia noted. Battery longevity greater than 7 years. Last atrial high rates noted early November. Patient updated. Patient will follow up in cardiology device clinic as scheduled on 02/12/17.
[2016-12-24] MEDS: levoFLOXacin 750 MG TABLET PO SCH (12:00)
[2016-12-24] MEDS ORDERED: MOM Conc 10 ML UD.LIQ PO PRN (16:13)
[2016-12-24] MEDS: Melatonin 3 MG TABLET PO SCH (19:54)
[2016-12-24] MEDS: Gabapentin 300 MG CAPSULE PO SCH (19:54)
[2016-12-24] MEDS: *HR* LORazepam 0.5 MG TABLET PO PRN (19:55)
[2016-12-25 03:34] LABS: Hematocrit 38.6 % (35.3-44.9); Hemoglobin 11.5 g/dL (11.5-15.4); Immature Granulocytes % 1.2 % (0-4); Lymphocytes # 0.2 K/mcL (0.6-4.6); Lymphocytes % 3.1 %; Mean Corpuscular HGB Conc 29.8 g/dL (31.6-35.5); Mean Corpuscular Hemoglobin 27.2 pg (28.0-33.3); Mean Corpuscular Volume 91.3 fL (83.0-100.0); Mean Platelet Volume 10.9 fL (9.4-12.4); Monocytes # 0.2 K/mcL (0.0-1.3); Monocytes % 3.1 %; Neutrophils # 7.2 K/mcL (1.6-8.9); Platelet Count 206 K/mcL (140-400); Red Blood Count 4.23 M/mcL (3.82-4.97); Red Cell Distribution Width 12.2 % (11.5-14.5); Segmented Neutrophils % 92.6 %
[2016-12-25 03:51] LABS: BUN/Creatinine Ratio 25 (6-26); Blood Urea Nitrogen 18 mg/dL (7-20); Calcium 8.9 mg/dL (8.6-10.8); Carbon Dioxide 38 mEq/L (19-29); Chloride 97 mEq/L (98-109); Glucose 210 mg/dL (70-99); Osmolality,Calculated 302 (280-300); Potassium 3.6 mEq/L (3.5-4.5); Sodium 142 mEq/L (136-145); eGFR For African Americans > 60 (> 60); eGFR For Non-African Americans > 60 (> 60)
[2016-12-25] MEDS: Levalbuterol 1 PUFF INHALER IH SCH ×2 (03:55→07:42)
[2016-12-25] MEDS: Ipratropium/Albuterol Neb 3 ML IH SCH ×3 (04:14→11:15)
[2016-12-25] MEDS: *HR* Rivaroxaban 10 MG TABLET PO SCH (09:12)
[2016-12-25] MEDS: Famotidine 20 MG TABLET PO SCH (09:12)
[2016-12-25] MEDS: Aspirin 81 MG TAB.CHEW PO SCH (09:13)
[2016-12-25] MEDS: Furosemide 40 MG TABLET PO SCH (09:13)
[2016-12-25] MEDS: Verapamil ER (24 HR) 180 MG TABLET.ER PO SCH (09:13)
[2016-12-25] MEDS: levoFLOXacin 750 MG TABLET PO SCH (09:13)
[2016-12-25] MEDS: *HR* Digoxin 0.125 MG TABLET PO SCH (09:13)
[2016-12-25] MEDS: methylPREDNISolone 125 MG/2 ML VIAL IVP SCH (09:14)
--- NOTE | 2016-12-25 10:10 | Discharge Summary ---
<Chandrakant Jimenez - Last Filed: 12/25/16 10:05> Date of Encounter: 12/25/16 Time of Encounter: 10:05 - Discharge Diagnosis (1) Acute exacerbation of chronic obstructive pulmonary disease (COPD) Priority: Primary Status: Resolved (2) A-fib Priority: Secondary Status: Chronic Qualifiers: Atrial fibrillation type: paroxysmal Qualified Code(s): I48.0 - Paroxysmal atrial fibrillation (3) Chronic systolic CHF (congestive heart failure) Priority: Secondary Status: Chronic - Discharge Medications Prescriptions: levoFLOXacin [Levaquin] 750 mg PO Q24H #4 tablet predniSONE [PredniSONE] 40 mg PO DAILY 2 Days Home Medications: Acetylcysteine [Nac] 600 mg PO TID 01/03/16 [History] Aspirin 81 mg PO DAILY 01/03/16 [History] Azathioprine [Imuran] 50 mg PO BID 01/03/16 [History] Carvedilol [Coreg] 12.5 mg PO BID 01/03/16 [History] Digoxin [Lanoxin] 0.125 mg PO DAILY 01/03/16 [History] Furosemide [Lasix] 40 mg PO DAILY 01/03/16 [History] Gabapentin [Neurontin] 600 mg PO HS 01/03/16 [History] Guaifenesin [Mucinex] 600 mg PO TID 01/03/16 [History] Levalbuterol [Xopenex INH] 2 puff PO Q6HR 01/03/16 [History] Losartan Potassium [Cozaar] 100 mg PO DAILY 01/03/16 [History] Lovastatin 40 mg PO DAILY 01/03/16 [History] Melatonin [Melatin] 3 mg PO HS 01/03/16 [History] Potassium Chloride [Klor-Con] 20 meq PO DAILY 01/03/16 [History] Rivaroxaban [Xarelto] 20 mg PO DAILY 01/03/16 [History] Verapamil HCl [Verapamil ER] 360 mg PO QAM 01/03/16 [History] Sucralfate [Carafate] 1 gm PO BID #60 tablet 11/28/16 [Rx] Dexlansoprazole [Dexilant] 60 mg PO BID 12/21/16 [History] Famotidine [Pepcid] 40 mg PO DAILY 12/21/16 [History] levoFLOXacin [Levaquin] 750 mg PO Q24H #4 tablet 12/25/16 [Rx] predniSONE [PredniSONE] 40 mg PO DAILY 2 Days 12/25/16 [Rx] Allergies/Adverse Reactions: Allergies iodine Allergy (Verified 01/02/16 22:41) Hives Penicillins [PCN] Allergy (Verified 01/02/16 22:41) Hives ferric carboxymaltose [From Injectafer] Adverse Reaction (Intermediate, Verified 08/17/16 16:11) Chest Pain 08/17/16 ABOUT 20MIN AFTER INFUSION COMPLETE PT REPORTED LIGHT HEADEDNESS, CHEST PAIN, AND HAD ELEVATED BLOOD PRESSURE. HYDROCORTISONE AND BENADRYL GIVEN WITH GOOD RELIEF. IVP DYE Allergy (Uncoded 01/02/16 22:41) Hives Date of admission: 12/24/16 14:54 Primary care physician: Cholo Leslie MD Discharging clinician: Chandrakant Jimenez Anticipated date of discharge: 12/25/16 - Patient Status Disposition: Home, Self-Care Condition: Fair Functional capacity at discharge: uses cane/walker Overall status at discharge: patient is progressing back to baseline - Discharge Instructions Follow Up With: Cholo Leslie MD [Primary Care Provider] - 12/29/16 3:00 pm Additional Instructions: Please follow-up with your primary care physician as scheduled. Please take your antibiotic and steroid until completed. Please restart your home medications. Please return for any new or worsening symptoms. - Diet and Activity Activity: increase activity as tolerated Diet: low fat, low cholesterol, low salt diet Interval History: Patient seen and examined at bedside. Patient states that she feels pretty good today. She feels that her breathing is at baseline. She does report some concern that her blood pressure is elevated but denies any symptoms related to this. Hospital course: Ms. Durant is a 81 year old female with history of COPD, CHF, atrial fibrillation, hypertension presented with progressive shortness of breath. Patient was admitted for COPD exacerbation and treated with IV antibiotics, IV steroids, scheduled breathing treatments. The patient responded well to treatment. On the day prior to discharge there was some concern about bradycardia and cardiology was consulted. Her pacemaker was interrogated and found to be functioning operatively with some artifact but no bradycardia noted. The patient will be discharged home back to her independent living facility in stable condition. - Time Spent with Patient Total time spent providing and/or coordinating discharge services: - Constitutional Vitals: Temp Pulse Resp BP Pulse Ox 97.6 F 57 16 185/79 99 12/25/16 07:20 12/25/16 07:20 12/25/16 07:42 12/25/16 07:20 12/25/16 07:42 General appearance: Present: A&O X 3, pleasant, answers questions appropriately - Respiratory Respiratory exam: Present: CTAB. Absent: rales, rhonchi, wheezes - Cardiovascular Cardiovascular exam: Present: irregular rhythm. Absent: gallop, rubs, systolic murmur - GI/Abdominal GI/Abdominal exam: Present: normal bowel sounds, soft. Absent: distended, tenderness - Extremities Exam Extremities exam: Present: warm. Absent: pedal edema, tenderness - Neurological Exam Neurological exam: Present: alert, CN II-XII intact, oriented X3, no focal deficits <Myrna,Harsh P - Last Filed: 12/25/16 17:38> Date of Encounter: 12/25/16 Date of admission: 12/24/16 14:54 Primary care physician: Cholo Leslie MD Hospital course: Ms. Durant is a 81 year old female - Time Spent with Patient Total time spent providing and/or coordinating discharge services: - Constitutional Vitals: Temp Pulse Resp BP Pulse Ox 97.6 F 57 16 154/72 100 12/25/16 07:20 12/25/16 07:20 12/25/16 11:15 12/25/16 11:07 12/25/16 11:15 - Attending Attestation I examined this patient and my medical decision-making was reviewed with the FAMILY PSYCHOLOGIST/PA/Advanced Practice Nurse/Resident Physician. I agree with the documented findings, disposition and treatment plan as described except to the extent set forth below.
[2016-12-25 11:10] VITALS: BP 154/72
--- NOTE | 2016-12-25 14:48 | Physician Discharge Referral ---
<Chandrakant Jimenez - Last Filed: 12/25/16 14:47> Home Health/Hosp Referral Info Transfer to: Home Health Attending Provider: Harsh Norris Provider in Charge Post Discharge: PCP - Diagnosis (1) Acute exacerbation of chronic obstructive pulmonary disease (COPD) Priority: Primary Status: Resolved (2) A-fib Priority: Secondary Status: Chronic (3) Chronic systolic CHF (congestive heart failure) Priority: Secondary Status: Chronic - Respiratory Orders Oxygen / L per min (2) Smoking Cessation: Smoking cessation has been advised. For more information, call the [place] Tobacco Quit Line at 7-390-NFFT-NOW. - Diet/Nutrition Diet/Nutrition Orders: No Added Salt (CAPRICE), Cardiac - Activity Activity Orders: Up ad jerry (with assist) - Services Needed Following services are medically necessary services: Nursing, Home Health Aide - Transfer Medications Prescriptions: levoFLOXacin [Levaquin] 750 mg PO Q24H #4 tablet predniSONE [PredniSONE] 40 mg PO DAILY 2 Days Home Medications: Acetylcysteine [Nac] 600 mg PO TID 01/03/16 [History] Aspirin 81 mg PO DAILY 01/03/16 [History] Azathioprine [Imuran] 50 mg PO BID 01/03/16 [History] Carvedilol [Coreg] 12.5 mg PO BID 01/03/16 [History] Digoxin [Lanoxin] 0.125 mg PO DAILY 01/03/16 [History] Furosemide [Lasix] 40 mg PO DAILY 01/03/16 [History] Gabapentin [Neurontin] 600 mg PO HS 01/03/16 [History] Guaifenesin [Mucinex] 600 mg PO TID 01/03/16 [History] Levalbuterol [Xopenex INH] 2 puff PO Q6HR 01/03/16 [History] Losartan Potassium [Cozaar] 100 mg PO DAILY 01/03/16 [History] Lovastatin 40 mg PO DAILY 01/03/16 [History] Melatonin [Melatin] 3 mg PO HS 01/03/16 [History] Potassium Chloride [Klor-Con] 20 meq PO DAILY 01/03/16 [History] Rivaroxaban [Xarelto] 20 mg PO DAILY 01/03/16 [History] Verapamil HCl [Verapamil ER] 360 mg PO QAM 01/03/16 [History] Sucralfate [Carafate] 1 gm PO BID #60 tablet 11/28/16 [Rx] Dexlansoprazole [Dexilant] 60 mg PO BID 12/21/16 [History] Famotidine [Pepcid] 40 mg PO DAILY 12/21/16 [History] levoFLOXacin [Levaquin] 750 mg PO Q24H #4 tablet 12/25/16 [Rx] predniSONE [PredniSONE] 40 mg PO DAILY 2 Days 12/25/16 [Rx] Allergies/Adverse Reactions: Allergies iodine Allergy (Verified 01/02/16 22:41) Hives Penicillins [PCN] Allergy (Verified 01/02/16 22:41) Hives ferric carboxymaltose [From Injectafer] Adverse Reaction (Intermediate, Verified 08/17/16 16:11) Chest Pain 08/17/16 ABOUT 20MIN AFTER INFUSION COMPLETE PT REPORTED LIGHT HEADEDNESS, CHEST PAIN, AND HAD ELEVATED BLOOD PRESSURE. HYDROCORTISONE AND BENADRYL GIVEN WITH GOOD RELIEF. IVP DYE Allergy (Uncoded 01/02/16 22:41) Hives Certification: Further, I certify that my clinical findings support that this patient is homebound (i.e. absences from home require considerable and taxing effort and are for medical reasons or yazidi services or infrequently or short duration when for other reasons) because: Homebound Reason: Patient requires assistance of a person or device to safely leave home, Leaving home requires considerable and taxing effort due to condition Attestation: My signature below is to certify that this patient is under my care and that I, or nurse practitioner, or a physician's assistant spa manager working with me, has a face-to -face encounter with this patient. <Harsh Norris - Last Filed: 12/25/16 17:39> - Respiratory Orders Smoking Cessation: Smoking cessation has been advised. For more information, call the [place] Tobacco Quit Line at 0-334-GTFC-NOW. Certification: Further, I certify that my clinical findings support that this patient is homebound (i.e. absences from home require considerable and taxing effort and are for medical reasons or yazidi services or infrequently or short duration when for other reasons) because: Attestation: My signature below is to certify that this patient is under my care and that I, or nurse practitioner, or a physician's assistant spa manager working with me, has a face-to -face encounter with this patient.
[2016-12-25] MEDS ORDERED: hydrALAZINE 10 MG TABLET PO SCH (15:00)
== END 2016-12-25 13:15 | disposition home or self-care (01) | DRG 191 ==
LOC: 3BNU 13:03 → EMEROO 13:03 → 3BNU 18:23
PROVIDERS: ADMIT Internal Medicine; ATTEND Nurse Practitioner Family

== ENCOUNTER 2017-07-02 12:15 | Observation (INO) ==
--- NOTE | 2017-07-02 12:41 | Emergency Department Note ---
Disposition Clinical Impression: Acute on chronic congestive heart failure, Chest pain, Altered mental status A-fib Qualifiers: Atrial fibrillation type: chronic Qualified Code(s): I48.2 - Chronic atrial fibrillation Disposition: Admitted As Inpatient Condition: Fair Time of Disposition: 15:58 General Adult HPI - General Chief complaint: ED Chest Pain Stated complaint: Chest Pain Time Seen by Provider: 07/02/17 12:18 Source: patient, family, EMS Mode of arrival: EMS Limitations: altered mental status Nursing Notes Reviewed: Yes Vital Signs Reviewed: Yes - History of Present Illness HPI Narrative: Patient presents to the ED with the complaint of chest pain. Patient arrives via EMS and was seen and evaluated upon arrival. Initial call was for her strokelike symptoms. Upon arrival. Patient states that she has been having chest pain 8 out of 10, and for the last few days. She states that she is legally blind. There is no change from baseline. She is somewhat confused and not answering questions appropriately but would not follow most commands. Upon family arrival, they stated that the patient is confused, but close to her baseline. She has a history of a brain tumor that is being followed and is stable. States that she has a history of A. fib and is on Xarelto. Also has a history of CHF. They have not noticed any acute weakness, but the states she is more confused than usual. Pain Scale: 8 - Related Data Home Medications Medication Instructions Recorded Confirmed Aspirin 81 mg PO DAILY 01/03/16 07/02/17 Azathioprine [Imuran] 50 mg PO QPM 01/03/16 07/02/17 Carvedilol [Coreg] 37.5 mg PO BID 01/03/16 07/02/17 Digoxin [Lanoxin] 0.125 mg PO DAILY 01/03/16 07/02/17 Furosemide [Lasix] 40 mg PO DAILY 01/03/16 07/02/17 Guaifenesin [Mucinex] 600 mg PO Q12H PRN 01/03/16 07/02/17 Levalbuterol [Xopenex INH] 2 puff PO Q6HR PRN 01/03/16 07/02/17 Losartan Potassium [Cozaar] 100 mg PO DAILY 01/03/16 07/02/17 Lovastatin 40 mg PO HS 01/03/16 07/02/17 Melatonin [Melatin] 3 mg PO HS 01/03/16 07/02/17 Potassium Chloride [Klor-Con] 20 meq PO DAILY 01/03/16 07/02/17 Rivaroxaban [Xarelto] 20 mg PO DAILY 01/03/16 07/02/17 Verapamil HCl [Verapamil ER] 360 mg PO QAM 01/03/16 07/02/17 Famotidine [Pepcid] 40 mg PO HS 12/21/16 07/02/17 Acetylcysteine 600 mg PO TID 07/02/17 07/02/17 [S-Hvtggt-s-Cysteine] Azathioprine [Azasan] 100 mg PO QAM 07/02/17 07/02/17 Calcium Carbonate/Vitamin D3 1 each PO DAILY 07/02/17 07/02/17 [Calcium 600 + Vit D Tablet] Gabapentin [Neurontin] 600 mg PO BID 07/02/17 07/02/17 Ipratropium/Albuterol Neb [Duoneb] 3 ml IH Q6H PRN 07/02/17 07/02/17 Polyethylene Glycol 3350 [MiraLAX] 17 gm PO BID PRN 07/02/17 07/02/17 Allergies Allergy/AdvReac Type Severity Reaction Status Date / Time iodine Allergy Hives Verified 06/27/17 08:09 Penicillins [PCN] Allergy Hives Verified 06/27/17 08:09 ferric carboxymaltose AdvReac Intermediate Chest Pain Verified 06/27/17 08:09 [From Injectafer] IVP DYE Allergy Hives Uncoded 06/27/17 08:09 Limitations: ROS unobtainable due to patients medical condition Cardiovascular: Reports: chest pain Respiratory: Denies: dyspnea Gastrointestinal: Denies: vomiting Neurological: Reports: confusion Past Medical History - Past Medical History Attestation: Yes The following information was validated with the patient. Source: patient Medical history: Reports: atrial fibrillation, CHF, COPD, hyperlipidemia, hypertension, RA, other Surgical history: Reports: cancer surgery, cataract, knee replacement, orthopedic, other, pacemaker/AICD Psychiatric history: Reports: anxiety GUN EXAMINER history: Reports: no GUN EXAMINER history - Social History Smoking Status: Former smoker Smokeless Tobacco Status: No Alcohol use: Reports: none Drug use: Reports: none Physical Exam - General Limitations: altered mental status General appearance: alert, in no apparent distress - Head Head exam: atraumatic, normocephalic, normal inspection - Eye Eye exam: Present: normal appearance, PERRL, EOMI, other (patient legally blind ) - ENT ENT exam: normal exam, normal oropharynx, mucous membranes moist - Neck Neck exam: Present: normal inspection, full ROM, trachea midline - Chest Chest inspection: Present: normal inspection, symmetric chest wall rise - Respiratory Respiratory exam: Present: normal lung sounds bilaterally - Cardiovascular Cardiovascular exam: Present: regular rate, normal rhythm, normal heart sounds - Abdominal Exam Abdominal exam: Present: soft, Non-Tender. Absent: tenderness, distention, guarding, rebound, rigidity - Extremities Exam Extremities exam: Present: normal inspection, full ROM, pedal edema (trace). Absent: tenderness - Expanded Lower Extremity Exam Hip/Pelvis exam: Present: pelvis stable - Neurological Exam Neurological exam: Present: alert. Absent: oriented X3 (oriented to place, name , month but not year) - Expanded Neurological Exam Speech: Present: fluid speech (but sometimes answers questions that were not asked or repeats an answer from previous question) Cranial nerves: EOM function (II, III, IV, ): Normal, facial sensation (V): Normal, facial palsy (VII): Normal, spinal accessory function (XI): Normal, tongue deviation (XII): Normal Cerebellar function: finger to nose: Normal (patient is blind but performs exam well, no concern ) Motor strength - LUE: 5/5 Motor strength - RUE: 5/5 Motor strength - LLE: 5/5 Motor strength - RLE: 5/5 Upper motor neuron exam: abby neglect: Absent bilaterally, pronator drift: Absent bilaterally Sensory exam upper extremity: light touch: Normal Sensory exam lower extremity: light touch: Normal Coma Scale Eye Opening: Spontaneous Coma Scale Motor Response: Obeys Commands Coma Scale Verbal Response: Confused Coma Scale Total: 14 - Psychiatric Psychiatric exam: Present: normal affect, normal mood - Skin Skin exam: Present: warm, dry, intact, normal color Course Course Narrative: Patient presents to the ED with the chief complaint of chest pain. Patient also having some confusion, but does not appear to be any strokelike symptoms. She does of A. fib, so we will CT her head. I think this is likely more of a cardiac or infectious process. Labs are back, looks like patient does have a CHF exacerbation. We will give her dose of Lasix and admitted to the hospital service Hospitalist for service requested an additional dose of Lasix. Vital Signs Temperature 98.3 F 07/02/17 12:17 Pulse Rate 74 07/02/17 12:17 Respiratory Rate 22 07/02/17 12:17 Blood Pressure 186/83 07/02/17 12:17 O2 Sat by Pulse Oximetry 100 07/02/17 12:17 Temperature 98.2 F 07/02/17 19:09 Pulse Rate 66 07/02/17 19:09 Respiratory Rate 17 07/02/17 19:09 Blood Pressure 142/49 07/02/17 19:09 O2 Sat by Pulse Oximetry 97 07/02/17 19:09 Oxygen Delivery Oxygen Delivery Nasal Cannula Medical Decision Making - Medical Records Medical records reviewed: Yes I reviewed the patient's medical records. - Lab Data Lab results reviewed: Yes I reviewed the patient's lab results. Result diagrams: 07/02/17 13:47 07/02/17 13:47 Lab Results 07/02/17 07/02/17 07/02/17 Range/Units 12:28 13:47 13:47 WBC 7.4 (4.3-11.1) K/mcL RBC 3.48 L (3.82-4.97) M/mcL Hgb 9.4 L (11.5-15.4) g/dL Hct 32.3 L (35.3-44.9) % MCV 92.8 (83.0-100.0) fL MCH 27.0 L (28.0-33.3) pg MCHC 29.1 L (31.6-35.5) g/dL RDW 14.1 (11.5-14.5) % Plt Count 209 (140-400) K/mcL MPV 10.1 (9.4-12.4) fL Immature Gran % 0.5 (0-4) % Seg Neutrophils % 85.3 % Lymphocytes % 8.3 % Monocytes % 5.2 % Eosinophils % 0.3 % Basophils % 0.4 % Neutrophils # 6.3 (1.6-8.9) K/mcL Lymphocytes # 0.6 (0.6-4.6) K/mcL Monocytes # 0.4 (0.0-1.3) K/mcL Eosinophils # 0.0 (0.0-0.6) K/mcL Basophils # 0.0 (0.0-0.2) K/mcL Nucleated RBCs/100 WBC 0.4 H (0) /100 WBC PT 12.5 H (9.4-12.1) Seconds INR 1.2 APTT 24.8 L (26.0-36.0) Seconds Sodium (136-145) mEq/L Potassium (3.5-5.1) mEq/L Chloride (98-107) mEq/L Carbon Dioxide (23-29) mEq/L BUN (8-23) mg/dL Creatinine (0.60-1.20) mg/dL Est GFR ( Amer) (> 60) Est GFR (Non-Af Amer) (> 60) BUN/Creatinine Ratio (6-26) Glucose (70-105) mg/dL POC Glucose 100 H (58-89) Calculated Osmolality (280-300) Calcium (8.6-10.3) mg/dL Total Bilirubin (0.3-1.0) mg/dL Direct Bilirubin (0.0-0.2) mg/dL Indirect Bilirubin (0.0-1.2) mg/dL AST (13-39) Units/L ALT (7-52) Units/L Alkaline Phosphatase (34-104) Units/L Ammonia (16-53) mcmol/L Creatine Kinase (30-223) Units/L Troponin I (< 0.04) ng/mL B-Natriuretic Peptide (Less than 100) pg/mL Serum Total Protein (6.4-8.9) g/dL Albumin (3.5-5.7) g/dL Globulin (2.4-3.5) g/dL Albumin/Globulin Ratio (1.1-2.2) TSH (0.340-5.600) mcIU/mL Urine Color (Yellow) Urine Clarity (Clear) Urine pH (5.0-8.0) pH Units Ur Specific [place] (1.010-1.025) Urine Protein (Neg-Trace) mg/dL Urine Glucose (UA) (Normal) mg/dL Urine Ketones (Negative) mg/dL Urine Blood (Negative) Urine Nitrite (Negative) Urine Bilirubin (Negative) Urine Urobilinogen (Normal) mg/dL Ur Leukocyte Esterase (Negative) Urine Microscopic RBC (0-3) per hpf Urine Microscopic WBC (0-3) per hpf Ur Squamous Epith Cells (None-Few) per lpf Urine Bacteria (None-Few) per hpf Hyaline Casts (None-Few) per lpf Ur Culture Indicated? (NO) 07/02/17 07/02/17 07/02/17 Range/Units 13:47 13:47 13:47 WBC (4.3-11.1) K/mcL RBC (3.82-4.97) M/mcL Hgb (11.5-15.4) g/dL Hct (35.3-44.9) % MCV (83.0-100.0) fL MCH (28.0-33.3) pg MCHC (31.6-35.5) g/dL RDW (11.5-14.5) % Plt Count (140-400) K/mcL MPV (9.4-12.4) fL Immature Gran % (0-4) % Seg Neutrophils % % Lymphocytes % % Monocytes % % Eosinophils % % Basophils % % Neutrophils # (1.6-8.9) K/mcL Lymphocytes # (0.6-4.6) K/mcL Monocytes # (0.0-1.3) K/mcL Eosinophils # (0.0-0.6) K/mcL Basophils # (0.0-0.2) K/mcL Nucleated RBCs/100 WBC (0) /100 WBC PT (9.4-12.1) Seconds INR APTT (26.0-36.0) Seconds Sodium 144 (136-145) mEq/L Potassium 3.7 (3.5-5.1) mEq/L Chloride 102 (98-107) mEq/L Carbon Dioxide 38 H (23-29) mEq/L BUN 11 (8-23) mg/dL Creatinine 0.69 (0.60-1.20) mg/dL Est GFR ( Amer) > 60 (> 60) Est GFR (Non-Af Amer) > 60 (> 60) BUN/Creatinine Ratio 16 (6-26) Glucose 94 (70-105) mg/dL POC Glucose (58-89) Calculated Osmolality 297 (280-300) Calcium 9.1 (8.6-10.3) mg/dL Total Bilirubin 0.4 (0.3-1.0) mg/dL Direct Bilirubin 0.1 (0.0-0.2) mg/dL Indirect Bilirubin 0.3 (0.0-1.2) mg/dL AST 11 L (13-39) Units/L ALT 8 (7-52) Units/L Alkaline Phosphatase 73 (34-104) Units/L Ammonia 30 (16-53) mcmol/L Creatine Kinase 68 (30-223) Units/L Troponin I 0.04 H* (< 0.04) ng/mL B-Natriuretic Peptide (Less than 100) pg/mL Serum Total Protein 6.5 (6.4-8.9) g/dL Albumin 3.7 (3.5-5.7) g/dL Globulin 2.8 (2.4-3.5) g/dL Albumin/Globulin Ratio 1.3 (1.1-2.2) TSH (0.340-5.600) mcIU/mL Urine Color (Yellow) Urine Clarity (Clear) Urine pH (5.0-8.0) pH Units Ur Specific [place] (1.010-1.025) Urine Protein (Neg-Trace) mg/dL Urine Glucose (UA) (Normal) mg/dL Urine Ketones (Negative) mg/dL Urine Blood (Negative) Urine Nitrite (Negative) Urine Bilirubin (Negative) Urine Urobilinogen (Normal) mg/dL Ur Leukocyte Esterase (Negative) Urine Microscopic RBC (0-3) per hpf Urine Microscopic WBC (0-3) per hpf Ur Squamous Epith Cells (None-Few) per lpf Urine Bacteria (None-Few) per hpf Hyaline Casts (None-Few) per lpf Ur Culture Indicated? (NO) 07/02/17 07/02/17 07/02/17 Range/Units 13:47 13:47 14:15 WBC (4.3-11.1) K/mcL RBC (3.82-4.97) M/mcL Hgb (11.5-15.4) g/dL Hct (35.3-44.9) % MCV (83.0-100.0) fL MCH (28.0-33.3) pg MCHC (31.6-35.5) g/dL RDW (11.5-14.5) % Plt Count (140-400) K/mcL MPV (9.4-12.4) fL Immature Gran % (0-4) % Seg Neutrophils % % Lymphocytes % % Monocytes % % Eosinophils % % Basophils % % Neutrophils # (1.6-8.9) K/mcL Lymphocytes # (0.6-4.6) K/mcL Monocytes # (0.0-1.3) K/mcL Eosinophils # (0.0-0.6) K/mcL Basophils # (0.0-0.2) K/mcL Nucleated RBCs/100 WBC (0) /100 WBC PT (9.4-12.1) Seconds INR APTT (26.0-36.0) Seconds Sodium (136-145) mEq/L Potassium (3.5-5.1) mEq/L Chloride (98-107) mEq/L Carbon Dioxide (23-29) mEq/L BUN (8-23) mg/dL Creatinine (0.60-1.20) mg/dL Est GFR ( Amer) (> 60) Est GFR (Non-Af Amer) (> 60) BUN/Creatinine Ratio (6-26) Glucose (70-105) mg/dL POC Glucose (58-89) Calculated Osmolality (280-300) Calcium (8.6-10.3) mg/dL Total Bilirubin (0.3-1.0) mg/dL Direct Bilirubin (0.0-0.2) mg/dL Indirect Bilirubin (0.0-1.2) mg/dL AST (13-39) Units/L ALT (7-52) Units/L Alkaline Phosphatase (34-104) Units/L Ammonia (16-53) mcmol/L Creatine Kinase (30-223) Units/L Troponin I (< 0.04) ng/mL B-Natriuretic Peptide 323 H (Less than 100) pg/mL Serum Total Protein (6.4-8.9) g/dL Albumin (3.5-5.7) g/dL Globulin (2.4-3.5) g/dL Albumin/Globulin Ratio (1.1-2.2) TSH 0.817 (0.340-5.600) mcIU/mL Urine Color Yellow (Yellow) Urine Clarity Clear (Clear) Urine pH 8.0 (5.0-8.0) pH Units Ur Specific [place] 1.012 (1.010-1.025) Urine Protein Trace (Neg-Trace) mg/dL Urine Glucose (UA) Normal (Normal) mg/dL Urine Ketones Negative (Negative) mg/dL Urine Blood Small H (Negative) Urine Nitrite Negative (Negative) Urine Bilirubin Negative (Negative) Urine Urobilinogen Normal (Normal) mg/dL Ur Leukocyte Esterase Negative (Negative) Urine Microscopic RBC 5-15 H (0-3) per hpf Urine Microscopic WBC 0-3 (0-3) per hpf Ur Squamous Epith Cells Many H (None-Few) per lpf Urine Bacteria None Seen (None-Few) per hpf Hyaline Casts None Seen (None-Few) per lpf Ur Culture Indicated? NO (NO) - Radiology Data Radiology results reviewed: Yes I reviewed the patient's radiology results. Chest X-Ray 07/02/17 12:33 IMPRESSION: Small bilateral pleural effusions and mild pulmonary vascular congestion. D/ / Aye Cameron MD / Aye Cameron MD Interpreting Provider: Aye Cameron MD Head CT 07/02/17 12:34 IMPRESSION: Re- demonstration of extra-axial anterior frontal mass with adjacent left frontal lobe edema. There has been minimal change compared to prior study. D/ / Otto Moore MD / Otto Moore MD Interpreting Provider: Otto Moore MD - EKG Data EKG #1 EKG attestation: Yes I reviewed and interpreted this EKG. EKG results narrative: Paced rhythm, rate 65, para we will to 20, QRS 173, QTc 429, left axis deviation , similar morphology to previous S.B.A.R. - S.B.A.R. Situation: Demographics, MOA Background: Presenting Complaint, Relevant PMH, Meds, & Allergies Assessment: Vital Signs, Course and respsone to treatment, Exam Concerns, Patient/Family Expectation, Pertinant Lab Results, Outstanding Labs Recommendation: Recommendation based on pending studies, treatments, or consults S.B.A.R. Report Given to: Dr. Alvaro [email or web address] Repor Time: 15:58 Attestation Statement - Attestation Attestation: I examined this patient and my medical decision-making was reviewed with the Resident Physician. I agree with the documented findings, disposition and treatment plan as described except to the extent set forth below. He is a 82-year-old black female who is brought into us by EMS today for reports of confusion. Patient arrives and complaining of 8 out of 10 chest pain which is nonradiating but denies any other associated symptoms, no palpitations, no shortness of breath, no fevers or chills, no cough. Patient is not having any focal neurologic deficits on exam and is legally blind. She is following commands and cooperating appropriately without any focal deficits. A family member arrived soon after patient stating that she called her this morning around 8:30 in the she was "talking out of her head", and stated that she acted like she was having a hard time thinking of what to say. Patient denies any headache or visual changes here no dizziness or lightheadedness. Patient's physical exam findings as documented. Patient was not having acute strokelike symptoms on arrival. Patient had an EKG performed which was negative for ischemia. Patient's chest x-ray shows pulmonary edema and trace pleural effusions in the bases consistent with acute exacerbation of CHF. Was given Lasix and underwent CT imaging of her brain which showed a stable meningioma that was found a few weeks ago but no other acute changes. Remainder of labs. Unremarkable. Patient will be admitted for chest pain, acute exacerbation of CHF, and mild confusion. Case was discussed with the hospitalist who accepted the patient for admission.
[2017-07-02 13:58] LABS: Basophils % 0.4 %; Eosinophils % 0.3 %; Hematocrit 32.3 % (35.3-44.9); Hemoglobin 9.4 g/dL (11.5-15.4); Immature Granulocytes % 0.5 % (0-4); Lymphocytes # 0.6 K/mcL (0.6-4.6); Lymphocytes % 8.3 %; Mean Corpuscular HGB Conc 29.1 g/dL (31.6-35.5); Mean Corpuscular Volume 92.8 fL (83.0-100.0); Mean Platelet Volume 10.1 fL (9.4-12.4); Monocytes # 0.4 K/mcL (0.0-1.3); Monocytes % 5.2 %; Neutrophils # 6.3 K/mcL (1.6-8.9); Nucleated Red Blood Cells 0.4 /100 WBC (0); Platelet Count 209 K/mcL (140-400); Red Blood Count 3.48 M/mcL (3.82-4.97); Red Cell Distribution Width 14.1 % (11.5-14.5); Segmented Neutrophils % 85.3 %
[2017-07-02 14:14] LABS: INR 1.2; Prothrombin Time 12.5 Seconds (9.4-12.1)
[2017-07-02 14:17] LABS: Activated Partial Thrombo Time 24.8 Seconds (26.0-36.0)
[2017-07-02 14:20] LABS: Alanine Aminotransferase 8 Units/L (7-52); Albumin 3.7 g/dL (3.5-5.7); Albumin/Globulin Ratio 1.3 (1.1-2.2); Alkaline Phosphatase 73 Units/L (34-104); Aspartate Amino Transferase 11 Units/L (13-39); BUN/Creatinine Ratio 16 (6-26); Bilirubin,Direct 0.1 mg/dL (0.0-0.2); Bilirubin,Indirect 0.3 mg/dL (0.0-1.2); Bilirubin,Total 0.4 mg/dL (0.3-1.0); Blood Urea Nitrogen 11 mg/dL (8-23); Calcium 9.1 mg/dL (8.6-10.3); Carbon Dioxide 38 mEq/L (23-29); Chloride 102 mEq/L (98-107); Creatine Kinase 68 Units/L (30-223); Globulin 2.8 g/dL (2.4-3.5); Glucose 94 mg/dL (70-105); Osmolality,Calculated 297 (280-300); Potassium 3.7 mEq/L (3.5-5.1); Sodium 144 mEq/L (136-145); Total Protein 6.5 g/dL (6.4-8.9); eGFR For African Americans > 60 (> 60); eGFR For Non-African Americans > 60 (> 60)
[2017-07-02 14:26] LABS: Bilirubin,Urine Negative (Negative); Blood,Urine Small (Negative); Clarity,Urine Clear (Clear); Color,Urine Yellow (Yellow); Glucose,Urine (UA) Normal (Normal); Ketones,Urine Negative (Negative); Leukocyte Esterase,Urine Negative (Negative); Nitrite,Urine Negative (Negative); Protein,Urine Trace mg/dL (Neg-Trace); Specific Gravity,Urine 1.012 (1.010-1.025); Urobilinogen,Urine Normal (Normal)
[2017-07-02 14:29] LABS: Bacteria,Urine None Seen per hpf (None-Few); Hyaline Casts,Urine None Seen per lpf (None-Few); Squamous Epithelial Cell,Urine Many per lpf (None-Few); WBC,Urine 0-3 per hpf (0-3)
[2017-07-02] MEDS ORDERED: Ipratropium/Albuterol Neb 3 ML IH ONE (15:08)
[2017-07-02] MEDS ORDERED: Furosemide 40 MG/4 ML VIAL IVP ONE (15:32)
[2017-07-02] MEDS ORDERED: Aspirin 325 MG TABLET PO ONE ×2 (16:35→20:37)
[2017-07-02] MEDS ORDERED: Naloxone 0.4 MG/ML INJ IVP PRN (17:43)
[2017-07-02] MEDS ORDERED: *HR* HYDROcodone/Acet 5/325 mg TABLET PO PRN (17:43)
[2017-07-02] MEDS ORDERED: Ondansetron 4 MG/2 ML VIAL IVP PRN (17:43)
[2017-07-02] MEDS ORDERED: *HR* Promethazine 25 MG/ML VIAL IVP PRN (17:43)
[2017-07-02] MEDS ORDERED: Acetaminophen 325 MG TABLET PO PRN (17:43)
[2017-07-02] MEDS ORDERED: *HR* Morphine 2 MG/ML SYRINGE IVP PRN (17:43)
[2017-07-02] MEDS ORDERED: Levalbuterol 1 PUFF INHALER IH PRN (17:46)
[2017-07-02] MEDS ORDERED: Ipratropium/Albuterol Neb 3 ML IH PRN (17:46)
--- NOTE | 2017-07-02 18:03 | Internal Med Progress Note ---
Date of Encounter: 07/02/17 Time of Encounter: 17:57 - Subjective Interval history: Ms. Durant is a 82 year old female with history of COPD, chronic hypoxic resp failure on 2 lit home O2, chronic systolic CHF, atrial fibrillation on Xarelto for anticoag, hypertension presented to ER with progressively worsening shortness of breath, chest congestion from last 2-3 days. Pt also c/o intermittent sub sternal CP, non radiating, 7/10 in severity , worsening with cough. Pt also mentioned she got cold a week ago for which she was placed on PO Abx which finished y/d. She still has cough with clear sputum. - Constitutional Vitals: Temp Pulse Resp BP Pulse Ox 98.3 F 70 16 190/75 96 07/02/17 12:17 07/02/17 15:33 07/02/17 16:14 07/02/17 16:14 07/02/17 15:33 Internal Medicine: Result - Labs CBC & Chem 7: 07/02/17 13:47 07/02/17 13:47 - ABG Interpretation ABG results: PT/INR, D-dimer PT 12.5 Seconds (9.4-12.1) H 07/02/17 13:47 Consult Discharge Plan - Plan Referrals: Cholo Leslie MD [Primary Care Provider] -
--- NOTE | 2017-07-02 18:06 | Internal Med History&Physical ---
Date of Encounter: 07/02/17 Time of Encounter: 18:04 Assessment and Plan (1) Atypical chest pain Current visit: Yes Status: Acute Will place the pt into tele for observation Her troponin slightly elevated at 0.04 will trend her Trop EKG showed vent paced rythm Her CP seems more like musckuloskeletal with cough related cont close monitoring cont ASA + BB Morphine IV PRN (2) Systolic CHF, acute on chronic Current visit: Yes Status: Acute She does have mild acute CHF exacerbation Reviewed 2 D Echo from 12/16 showed LVEF 40% will repeat 2 D Echo Gentle diuresis with Lasix 40 BID Reviewed CXR showed Vascular congestion resumed other home meds (3) Acute bronchitis Current visit: Yes Status: Acute mostly viral she just finished Abx course does not look sick or toxic no need to resume abx cont symptomatic and supportive care will check Resp viral panel Qualifiers: Qualified Code(s): J20.9 - Acute bronchitis, unspecified (4) A-fib Current visit: Yes Status: Chronic rate controlled on home med Coreg, Digoxin Need to clarify on her Verapamil , wether she is on it or not will ask pharmacist to verify in AM On Xarelto for anti coag Qualifiers: Atrial fibrillation type: chronic Qualified Code(s): I48.2 - Chronic atrial fibrillation (5) Blindness Current visit: No Status: Chronic (6) COPD (chronic obstructive pulmonary disease) Current visit: No Status: Chronic stable not in exacerbation resumed home INH regimen Qualifiers: COPD type: chronic bronchitis Chronic bronchitis type: simple Qualified Code(s): J41.0 - Simple chronic bronchitis (7) Hyperlipidemia Current visit: No Status: Chronic on statin Qualifiers: Hyperlipidemia type: Mixed hyperlipidemia Qualified Code(s): E78.2 - Mixed hyperlipidemia (8) Hypertension Current visit: No Status: Chronic stable with home meds will start her on IV Hydralazine PRN Qualifiers: Hypertension type: essential hypertension Qualified Code(s): I10 - Essential (primary) hypertension Internal Medicine - H&P: HPI Chief complaint: Shortness of breath Admitted From: Emergency Dept Plans for Post Hospital Care: Home History of present illness: Ms. Durant is a 82 year old female with history of COPD, chronic hypoxic resp failure on 2 lit home O2, chronic systolic CHF, atrial fibrillation on Xarelto for anticoag, hypertension, and legally blind pt presented to ER with progressively worsening shortness of breath, chest congestion from last 2-3 days. Pt also c/o intermittent sub sternal CP, non radiating, 7/10 in severity , worsening with cough. Pt also mentioned she got cold a week ago for which she was placed on PO Abx which finished y/d. She still has cough with clear sputum. Past Med Surg Social Fam HX - Past Medical History Medical history: atrial fibrillation, CHF, COPD, hyperlipidemia, hypertension, RA, other Psychiatric history: anxiety - Past Surgical History Surgical History: cancer surgery, cataract, knee replacement, orthopedic, other , pacemaker/AICD - Social History Smoking Status: Former smoker Smokeless Tobacco Status: No Alcohol use: none Drug use: none - Family History Mother Adopted: No Family Member Ethnicity: Non- Living Status: Hx Family Cardiac Disorders: No Hx Family Respiratory Disorders: No Hx Family Cancer: Yes (liver cancer, stomach cancer) Hx Family GI Disorders: No Hx Family Endocrine Disorder: No Hx Family Neuromuscular Disorders: No Hx Family Neurologic Disorders: No Hx Family HEENT Disorders: No Hx Family Autoimmune Disorders: No Sister Hx Family Endocrine Disorder: Yes Internal Medicine - H&P: Meds Aspirin 81 mg PO DAILY 01/03/16 [History] Azathioprine [Imuran] 50 mg PO QPM 01/03/16 [History] Carvedilol [Coreg] 37.5 mg PO BID 01/03/16 [History] Digoxin [Lanoxin] 0.125 mg PO DAILY 01/03/16 [History] Furosemide [Lasix] 40 mg PO DAILY 01/03/16 [History] Guaifenesin [Mucinex] 600 mg PO Q12H PRN 01/03/16 [History] Levalbuterol [Xopenex INH] 2 puff PO Q6HR PRN 01/03/16 [History] Losartan Potassium [Cozaar] 100 mg PO DAILY 01/03/16 [History] Lovastatin 40 mg PO HS 01/03/16 [History] Melatonin [Melatin] 3 mg PO HS 01/03/16 [History] Potassium Chloride [Klor-Con] 20 meq PO DAILY 01/03/16 [History] Rivaroxaban [Xarelto] 20 mg PO DAILY 01/03/16 [History] Verapamil HCl [Verapamil ER] 360 mg PO QAM 07/04/16 [History] Famotidine [Pepcid] 40 mg PO HS 12/21/16 [History] Acetylcysteine [O-[place]-l-Cysteine] 600 mg PO TID 07/02/17 [History] Azathioprine [Azasan] 100 mg PO QAM 07/02/17 [History] Calcium Carbonate/Vitamin D3 [Calcium 600 + Vit D Tablet] 1 each PO DAILY [History] Gabapentin [Neurontin] 600 mg PO BID 07/02/17 [History] Ipratropium/Albuterol Neb [Duoneb] 3 ml IH Q6H PRN 07/02/17 [History] Polyethylene Glycol 3350 [MiraLAX] 17 gm PO BID PRN 07/02/17 [History] 3 Allergy/AdvReac Type Severity Reaction Status Date / Time iodine Allergy Hives Verified 06/27/17 08:09 Penicillins [PCN] Allergy Hives Verified 06/27/17 08:09 ferric carboxymaltose AdvReac Intermediate Chest Pain Verified 06/27/17 08:09 [From Injectafer] IVP DYE Allergy Hives Uncoded 06/27/17 08:09 All Systems PM: A 10-system review of systems was performed and is negative for pertinent findings except as documented above in the HPI. Review of systems: Reviewed all the systems, everything is benign except the systems and symptoms I mentioned in HPI - Constitutional Vitals: Temp Pulse Resp BP Pulse Ox 98.0 F 60 15 163/63 97 07/02/17 17:00 07/02/17 17:00 07/02/17 17:00 07/02/17 17:00 07/02/17 17:00 General appearance: Present: A&O X 3, no acute distress, answers questions appropriately - Head Head exam: Present: atraumatic, normal inspection - Neck Neck exam general surgery: Present: supple - Respiratory Respiratory exam: Present: decreased breath sounds, rales (mild rales at basal regions), wheezes (mild). Absent: respiratory distress, rhonchi - Cardiovascular Cardiovascular exam: Present: irregular rhythm, +S1, +S2. Absent: systolic murmur, tachycardia - GI/Abdominal GI/Abdominal exam: Present: normal bowel sounds, soft. Absent: rebound, rigid, tenderness - Extremities Exam Extremities exam: Present: pedal edema (trace). Absent: calf tenderness, tenderness - Back Exam Back exam: Absent: CVA tenderness (L), CVA tenderness (R) - Neurological Exam Neurological exam: Present: alert, oriented X3 - Psychiatric Psychiatric exam: Present: normal affect, normal mood - Skin Skin exam: Absent: rash Internal Med - H&P Results - Labs CBC & Chem 7: 07/02/17 13:47 07/02/17 13:47
[2017-07-02] MEDS: Gabapentin 300 MG CAPSULE PO SCH (20:14)
[2017-07-02] MEDS: Melatonin 3 MG TABLET PO SCH (20:15)
[2017-07-02] MEDS: *HR* Acetylcysteine 20% 600 MG/3 ML ORAL SYRINGE PO SCH (20:15)
[2017-07-02] MEDS ORDERED: Famotidine 20 MG TABLET PO SCH (21:00)
[2017-07-03 04:30] LABS: Lymphocytes % 20.8 %
[2017-07-03 04:31] LABS: Basophils % 0.6 %; Eosinophils # 0.1 K/mcL (0.0-0.6); Eosinophils % 2.5 %; Hematocrit 30.1 % (35.3-44.9); Immature Granulocytes % 0.4 % (0-4); Mean Corpuscular HGB Conc 29.9 g/dL (31.6-35.5); Mean Corpuscular Hemoglobin 27.4 pg (28.0-33.3); Mean Corpuscular Volume 91.5 fL (83.0-100.0); Mean Platelet Volume 9.9 fL (9.4-12.4); Monocytes # 0.5 K/mcL (0.0-1.3); Monocytes % 10.1 %; Platelet Count 165 K/mcL (140-400); Red Blood Count 3.29 M/mcL (3.82-4.97); Red Cell Distribution Width 14.2 % (11.5-14.5); Segmented Neutrophils % 65.6 %
[2017-07-03 04:47] LABS: BUN/Creatinine Ratio 16 (6-26); Blood Urea Nitrogen 12 mg/dL (8-23); Calcium 8.9 mg/dL (8.6-10.3); Carbon Dioxide 37 mEq/L (23-29); Chloride 100 mEq/L (98-107); Chol/HDL Ratio 2.7 (0-4.9); Cholesterol 137 mg/dL (< 200); Glucose 110 mg/dL (70-105); HDL Cholesterol 51 mg/dL (40-59); LDL Cholesterol,Calculated 56 mg/dL (0-99); Magnesium 2.1 mg/dL (1.6-2.6); Osmolality,Calculated 294 (280-300); Potassium 3.1 mEq/L (3.5-5.1); Sodium 142 mEq/L (136-145); Triglycerides 150 mg/dL (< 150); eGFR For African Americans > 60 (> 60); eGFR For Non-African Americans > 60 (> 60)
[2017-07-03 05:00] LABS: Neutrophils # 3.2 K/mcL (1.6-8.9)
[2017-07-03 05:01] LABS: Anisocytosis 1+ (Not Present); Hypochromasia Present (Not Present); Platelet Estimate Normal (Normal); Poikilocytosis 1+ (Not Present)
[2017-07-03] MEDS: *HR* Rivaroxaban 10 MG TABLET PO SCH (08:27)
[2017-07-03] MEDS: Gabapentin 300 MG CAPSULE PO SCH ×2 (08:28→21:23)
[2017-07-03] MEDS: *HR* Digoxin 0.125 MG TABLET PO SCH (08:28)
[2017-07-03] MEDS: Aspirin 81 MG TAB.CHEW PO SCH (08:28)
[2017-07-03] MEDS ORDERED: Calcium 600 + Vit D PO SCH (09:00)
[2017-07-03] MEDS: Furosemide 40 MG/4 ML VIAL IVP SCH (11:30)
[2017-07-03] MEDS: *HR* Acetylcysteine 20% 600 MG/3 ML ORAL SYRINGE PO SCH ×3 (11:31→21:24)
--- NOTE | 2017-07-03 13:21 | Internal Med Progress Note ---
Date of Encounter: 07/03/17 Time of Encounter: 13:19 - Assessment and plan (1) Systolic CHF, acute on chronic Current Visit: Yes Status: Acute Assessment and plan: clinically improving awaiting repeat echo report continue Lasix 40mg IV qd monitor I/Os, fluid restriction diet, daily weights continue home meds (2) Atypical chest pain Current Visit: Yes Status: Resolved Assessment and plan: chest pain resolved at this time likely secondary to cough from the acute bronchitis continue ASA and BB (3) Acute bronchitis Current Visit: Yes Status: Acute Assessment and plan: likely viral pt recently finished abx course clinically improving continue to monitor off abx supportive care Qualifiers: Qualified Code(s): J20.9 - Acute bronchitis, unspecified (4) A-fib Current Visit: Yes Status: Chronic Assessment and plan: Rate controlled with Coreg and Digoxin Anticoagulated with Xarelto restarted home dose of Verapamil after verification Qualifiers: Atrial fibrillation type: chronic Qualified Code(s): I48.2 - Chronic atrial fibrillation (5) DVT prophylaxis Current Visit: No Status: Acute Assessment and plan: anticoagulated with Xarelto (6) Hyperlipidemia Current Visit: No Status: Chronic Assessment and plan: continue statin therapy Qualifiers: Hyperlipidemia type: unspecified Qualified Code(s): E78.5 - Hyperlipidemia , unspecified (7) Hypertension Current Visit: No Status: Chronic Assessment and plan: noted to be hypertensive this morning restarted home dose of Verapamil in addition to continuation of other home meds will closely monitor BP Qualifiers: Hypertension type: essential hypertension Qualified Code(s): I10 - Essential (primary) hypertension (8) Blindness Current Visit: No Status: Chronic - Subjective Interval history: Pt seen and examined at bedside. Resting in comfortably and reports of improvement in her breathing compared to previous day. Denies any chest pain at this time. Uses 2L NC Oxygen at home. - Constitutional Vitals: Temp Pulse Resp BP Pulse Ox 98 F 60 20 152/71 98 07/03/17 11:00 07/03/17 11:00 07/03/17 11:00 07/03/17 11:00 07/03/17 11:00 General appearance: Present: cooperative, A&O X 3, pleasant, no acute distress, answers questions appropriately - Head Head exam: Present: atraumatic, normocephalic - Eye Eye exam: Present: conjuntiva pink, sclera anicteric - Respiratory Respiratory exam: Absent: accessory muscle use, rales, respiratory distress ( bibasilar rales), rhonchi, wheezes - Cardiovascular Cardiovascular exam: Present: RRR, +S1, +S2. Absent: diastolic murmur, gallop, rubs, systolic murmur - GI/Abdominal GI/Abdominal exam: Present: normal bowel sounds, soft, no peritoneal signs. Absent: distended, tenderness - Extremities Exam Extremities exam: Present: warm, radial pulses palpable and symmetrical. Absent : calf tenderness - Neurological Exam Neurological exam: Present: alert, oriented X3 - Psychiatric Psychiatric exam: Present: normal affect, normal mood Internal Medicine: Result - Labs CBC & Chem 7: 07/03/17 04:18 07/03/17 04:18 Labs: Short CBC 07/03/17 Range/Units 04:18 WBC 4.8 (4.3-11.1) K/mcL Hgb 9.0 L (11.5-15.4) g/dL Hct 30.1 L (35.3-44.9) % Plt Count 165 (140-400) K/mcL Neutrophils # 3.2 (1.6-8.9) K/mcL BMP 07/03/17 04:18 Sodium 142 Potassium 3.1 L Chloride 100 Carbon Dioxide 37 H BUN 12 Creatinine 0.76 Glucose 110 H Calcium 8.9 Cardiac Enzymes 07/02/17 07/03/17 Range/Units 22:04 04:18 Troponin I 0.04 H* 0.04 H* (< 0.04) ng/mL - ABG Interpretation ABG results: PT/INR, D-dimer PT 12.5 Seconds (9.4-12.1) H 07/02/17 13:47 Consult Discharge Plan - Plan Referrals: Cholo Leslie MD [Primary Care Provider] -
[2017-07-03] MEDS: Verapamil ER (24 HR) 180 MG TABLET.ER PO SCH (15:49)
--- NOTE | 2017-07-03 16:48 | Electrocardiograph Report ---
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
[2017-07-03] MEDS ORDERED: Famotidine 20 MG TABLET PO SCH (21:00)
[2017-07-03] MEDS: Melatonin 3 MG TABLET PO SCH (21:23)
[2017-07-04 04:57] LABS: BUN/Creatinine Ratio 18 (6-26); Basophils % 0.3 %; Blood Urea Nitrogen 14 mg/dL (8-23); Calcium 8.8 mg/dL (8.6-10.3); Carbon Dioxide 35 mEq/L (23-29); Chloride 103 mEq/L (98-107); Eosinophils # 0.1 K/mcL (0.0-0.6); Eosinophils % 0.9 %; Glucose 116 mg/dL (70-105); Hematocrit 31.3 % (35.3-44.9); Hemoglobin 9.4 g/dL (11.5-15.4); Immature Granulocytes % 0.6 % (0-4); Lymphocytes # 0.9 K/mcL (0.6-4.6); Lymphocytes % 13.4 %; Magnesium 2.1 mg/dL (1.6-2.6); Mean Corpuscular Hemoglobin 27.5 pg (28.0-33.3); Mean Corpuscular Volume 91.5 fL (83.0-100.0); Mean Platelet Volume 10.5 fL (9.4-12.4); Monocytes # 0.5 K/mcL (0.0-1.3); Monocytes % 7.3 %; Neutrophils # 5.4 K/mcL (1.6-8.9); Osmolality,Calculated 301 (280-300); Phosphorous 3.7 mg/dL (2.7-4.5); Platelet Count 202 K/mcL (140-400); Potassium 4.4 mEq/L (3.5-5.1); Red Blood Count 3.42 M/mcL (3.82-4.97); Red Cell Distribution Width 14.3 % (11.5-14.5); Segmented Neutrophils % 77.5 %; Sodium 145 mEq/L (136-145); eGFR For African Americans > 60 (> 60); eGFR For Non-African Americans > 60 (> 60)
[2017-07-04] MEDS: Verapamil ER (24 HR) 180 MG TABLET.ER PO SCH (08:58)
[2017-07-04] MEDS: *HR* Rivaroxaban 10 MG TABLET PO SCH (08:59)
[2017-07-04] MEDS: Gabapentin 300 MG CAPSULE PO SCH (08:59)
[2017-07-04] MEDS: Aspirin 81 MG TAB.CHEW PO SCH (08:59)
[2017-07-04] MEDS: *HR* Digoxin 0.125 MG TABLET PO SCH (08:59)
[2017-07-04] MEDS: *HR* Acetylcysteine 20% 600 MG/3 ML ORAL SYRINGE PO SCH ×2 (09:00→16:12)
[2017-07-04] MEDS: Furosemide 40 MG/4 ML VIAL IVP SCH (09:00)
[2017-07-04] MEDS ORDERED: Cholecalciferol (D-3) 1,000 UNIT TABLET PO SCH (09:00)
[2017-07-04 11:17] VITALS: BP 138/74
--- NOTE | 2017-07-04 12:40 | Internal Med Progress Note ---
Date of Encounter: 07/04/17 Time of Encounter: 12:25 - Assessment and plan (1) Systolic CHF, acute on chronic Current Visit: Yes Status: Acute (2) Atypical chest pain Current Visit: Yes Status: Resolved (3) Acute bronchitis Current Visit: Yes Status: Acute Qualifiers: Bronchitis organism: unspecified organism Qualified Code(s): J20.9 - Acute bronchitis, unspecified (4) A-fib Current Visit: Yes Status: Chronic Qualifiers: Atrial fibrillation type: chronic Qualified Code(s): I48.2 - Chronic atrial fibrillation (5) DVT prophylaxis Current Visit: No Status: Acute (6) Hyperlipidemia Current Visit: No Status: Chronic Qualifiers: Hyperlipidemia type: unspecified Qualified Code(s): E78.5 - Hyperlipidemia , unspecified (7) Hypertension Current Visit: No Status: Chronic Qualifiers: Hypertension type: essential hypertension Qualified Code(s): I10 - Essential (primary) hypertension (8) Blindness Current Visit: No Status: Chronic - Subjective Interval history: Pt seen and examined with daughter present at bedside. Pt reports of improvement in her breathing and is noted to be confused. Currently oriented to self, place, but not time. As per daughter, pt had a new findings of a brain mass in March 2017 for which follows a neurologist in [place]. She is noted to have acute change in her mental status at home which is what prompted her visit to the ER as per daughter. CT head reported: a subtle slightly hyperdense mass in the anterior frontal region causing slight mass effect on the left frontal lobe with adjacent left frontal and parenchymal edema. The extent of the edema does not appear to have significantly changed compared to prior study. There is mild volume loss. Mild scattered white matter changes are seen. Neurology evaluation is requested as pt does not have any infectious or metabolic causes contributing to her current mental status change - Constitutional Vitals: Temp Pulse Resp BP Pulse Ox 97.7 F 60 17 138/74 96 07/04/17 07:00 07/04/17 11:00 07/04/17 11:00 07/04/17 11:00 07/04/17 07:00 General appearance: Present: cooperative, A&O X 2, pleasant, no acute distress, answers questions appropriately - Head Head exam: Present: atraumatic, normocephalic - Eye Eye exam: Present: conjuntiva pink, sclera anicteric - Respiratory Respiratory exam: Absent: respiratory distress, wheezes (equal air entry bilaterally ) - Cardiovascular Cardiovascular exam: Present: RRR, +S1, +S2. Absent: diastolic murmur, gallop, rubs, systolic murmur - GI/Abdominal GI/Abdominal exam: Present: normal bowel sounds, soft, no peritoneal signs. Absent: distended, tenderness - Extremities Exam Extremities exam: Present: warm, radial pulses palpable and symmetrical. Absent : calf tenderness, pedal edema - Neurological Exam Neurological exam: Present: alert. Absent: facial droop, speech deficit Internal Medicine: Result - Labs CBC & Chem 7: 07/04/17 04:36 07/04/17 04:36 Labs: Short CBC 07/04/17 Range/Units 04:36 WBC 7.0 (4.3-11.1) K/mcL Hgb 9.4 L (11.5-15.4) g/dL Hct 31.3 L (35.3-44.9) % Plt Count 202 (140-400) K/mcL Neutrophils # 5.4 (1.6-8.9) K/mcL BMP 07/04/17 04:36 Sodium 145 Potassium 4.4 Chloride 103 Carbon Dioxide 35 H BUN 14 Creatinine 0.80 Glucose 116 H Calcium 8.8 - ABG Interpretation ABG results: PT/INR, D-dimer PT 12.5 Seconds (9.4-12.1) H 07/02/17 13:47 - Impressions Impressions Echocardiogram 07/03/17 17:46 Impressions: LVEF 45%. Mild concentric left ventricular hypertrophy. Mildly dilated left ventricle. Mild global left ventricular systolic dysfunction. Atypical septal motion consistent with paced rhythm. Normal right ventricular structure and function. Severely dilated left atrium. No evidence of PFO with agitated saline contrast. Mild mitral regurgitation. Mild pulmonary hypertension. A device lead was visualized in the right atrium and right ventricle. Left Ventricular Wall Motion: Rest Echo Findings The apex, apical inferior, mid inferior, basal inferior, apical anterior, mid anterior, basal anterior, apical septal, mid inferior septal, basal inferior septal, apical lateral, mid anterior lateral, basal anterior lateral, mid anterior septal, mid inferior lateral, basal anterior septal and basal inferior lateral sharp were hypokinetic. Findings: Study Quality * Technically adequate exam. ECG Findings * Normal sinus rhythm. Left Ventricle * LVEF 45%. * Mild concentric left ventricular hypertrophy. * Mildly dilated left ventricle. * Mild global left ventricular systolic dysfunction. * Atypical septal motion consistent with paced rhythm. Right Ventricle * Normal right ventricular structure and function. Left Atrium * Severely dilated left atrium. Right Atrium * Moderately dilated right atrium. Interatrial Septum * No evidence of PFO with agitated saline contrast. Aortic Valve * Trileaflet aortic valve. * Mildly sclerotic aortic valve leaflets. * No aortic regurgitation. * No aortic stenosis. Mitral Valve * Normal mitral valve structure. * Mild mitral regurgitation. * No mitral stenosis. Tricuspid Valve * Normal tricuspid valve structure and function. * Trace tricuspid regurgitation. * Mild pulmonary hypertension. Pulmonic Valve * Normal pulmonic valve structure and function. * Trace pulmonic regurgitation. Aorta * Normally sized aortic root. Pericardium * The pericardium appears normal. IVC * Normal IVC dimensions and inspiratory collapse. Device lead * A device lead was visualized in the right atrium and right ventricle. Pulmonary Artery * Normal visualized portions of the main pulmonary artery. Consult Discharge Plan - Plan Referrals: Cholo Leslie MD [Primary Care Provider] -
--- NOTE | 2017-07-04 14:05 | Transfer Summary ---
Date of Encounter: 07/04/17 Time of Encounter: 12:37 Transfer Discharge Sum: Diag - Discharge Diagnosis (1) Systolic CHF, acute on chronic Status: Acute (2) Atypical chest pain Status: Resolved (3) Acute bronchitis Status: Acute (4) A-fib Status: Chronic (5) DVT prophylaxis Status: Acute (6) Hyperlipidemia Status: Chronic (7) Hypertension Status: Chronic (8) Blindness Status: Chronic (9) Mass, brain Status: Acute Transfer Discharge Sum: Med - Medications Active and Home Medications: Home Medications Aspirin 81 mg PO DAILY 01/03/16 [History Confirmed 07/02/17] Azathioprine [Imuran] 50 mg PO QPM 01/03/16 [History Confirmed 07/02/17] Carvedilol [Coreg] 37.5 mg PO BID 01/03/16 [History Confirmed 07/02/17] Digoxin [Lanoxin] 0.125 mg PO DAILY 01/03/16 [History Confirmed 07/02/17] Furosemide [Lasix] 40 mg PO DAILY 01/03/16 [History Confirmed 07/02/17] Guaifenesin [Mucinex] 600 mg PO Q12H PRN 01/03/16 [History Confirmed 07/02/17] Levalbuterol [Xopenex INH] 2 puff PO Q6HR PRN 01/03/16 [History Confirmed ] Losartan Potassium [Cozaar] 100 mg PO DAILY 01/03/16 [History Confirmed 07/02/17 ] Lovastatin 40 mg PO HS 01/03/16 [History Confirmed 07/02/17] Melatonin [Melatin] 3 mg PO HS 01/03/16 [History Confirmed 07/02/17] Potassium Chloride [Klor-Con] 20 meq PO DAILY 01/03/16 [History Confirmed ] Rivaroxaban [Xarelto] 20 mg PO DAILY 01/03/16 [History Confirmed 07/02/17] Verapamil HCl [Verapamil ER] 360 mg PO QAM 01/03/16 [History Confirmed 07/02/17] Famotidine [Pepcid] 40 mg PO HS 12/21/16 [History Confirmed 07/02/17] Acetylcysteine [P-Cowqcc-i-Cysteine] 600 mg PO TID 07/02/17 [History Confirmed 07/02/17] Azathioprine [Azasan] 100 mg PO QAM 07/02/17 [History Confirmed 07/02/17] Calcium Carbonate/Vitamin D3 [Calcium 600 + Vit D Tablet] 1 each PO DAILY [History Confirmed 07/02/17] Gabapentin [Neurontin] 600 mg PO BID 07/02/17 [History Confirmed 07/02/17] Ipratropium/Albuterol Neb [Duoneb] 3 ml IH Q6H PRN 07/02/17 [History Confirmed 07/02/17] Polyethylene Glycol 3350 [MiraLAX] 17 gm PO BID PRN 07/02/17 [History Confirmed 07/02/17] Active Medications Acetaminophen (Tylenol) 650 mg PO Q6HR PRN PRN Reason: Mild Pain (1-3) Stop: 01/01/18 17:44 Hydrocodone Bitart/Acetaminophen ([place] 5-325 Mg) 1 tab PO Q4HR PRN PRN Reason: Moderate Pain (4-6) Stop: 01/01/18 17:44 Last Admin: 07/03/17 03:21 Dose: 1 tab Acetylcysteine (Acetylcysteine 20%) 600 mg PO TID [facility] Stop: 01/01/18 21:01 Last Admin: 07/04/17 09:00 Dose: 600 mg Albuterol/Ipratropium (Duoneb) 3 ml IH Q6H PRN PRN Reason: Shortness Of Breath Stop: 01/01/18 17:47 Aspirin (Aspirin) 81 mg PO DAILY [facility] Stop: 01/02/18 09:01 Last Admin: 07/04/17 08:59 Dose: 81 mg Atorvastatin Calcium (Lipitor) 10 mg PO HS [facility] Stop: 01/01/18 21:01 Last Admin: 07/03/17 21:23 Dose: 10 mg Azathioprine (Imuran) 50 mg PO QPM [facility] Stop: 01/01/18 18:01 Last Admin: 07/03/17 18:00 Dose: 50 mg Azathioprine (Imuran) 100 mg PO QAM [facility] Stop: 01/02/18 09:01 Last Admin: 07/04/17 08:59 Dose: 100 mg Calcium Carbonate (Tums) 500 mg PO DAILY [facility] PRN Reason: Protocol Stop: 01/03/18 09:01 Last Admin: 07/04/17 09:00 Dose: 500 mg Carvedilol (Coreg) 37.5 mg PO BIDWM [facility] PRN Reason: Protocol Stop: 01/01/18 21:01 Last Admin: 07/04/17 08:57 Dose: 37.5 mg Digoxin (Lanoxin) 0.125 mg PO DAILY [facility] Stop: 01/02/18 09:01 Last Admin: 07/04/17 08:59 Dose: 0.125 mg Docusate Sodium (Colace) 100 mg PO BID PRN PRN Reason: Constipation Stop: 01/01/18 17:44 Famotidine (Pepcid) 20 mg PO HS [facility] Stop: 01/01/18 21:01 Last Admin: 07/03/17 21:23 Dose: 20 mg Furosemide (Lasix) 40 mg PO BIDDIURETIC [facility] Stop: 01/04/18 08:01 Gabapentin (Neurontin) 600 mg PO BID [facility] Stop: 01/01/18 21:01 Last Admin: 07/04/17 08:59 Dose: 600 mg Losartan Potassium (Cozaar) 100 mg PO DAILY [facility] Stop: 01/02/18 09:01 Last Admin: 07/04/17 08:59 Dose: 100 mg Melatonin (Melatonin) 3 mg PO HS [facility] Stop: 01/01/18 21:01 Last Admin: 07/03/17 21:23 Dose: 3 mg Morphine Sulfate (Morphine Sulfate) 2 mg IVP Q4HR PRN PRN Reason: Severe Pain (7-10) Stop: 01/01/18 17:44 Naloxone HCl (Narcan) 0.4 mg IVP Q2MIN PRN PRN Reason: Opioid Reversal Stop: 01/01/18 17:44 Ondansetron HCl (Zofran) 4 mg IVP Q8HR PRN PRN Reason: Nausea And Vomiting Stop: 01/01/18 17:44 Polyethylene Glycol (Miralax) 17 gm PO BID PRN PRN Reason: Constipation Stop: 01/01/18 17:47 Potassium Chloride (Potassium Chloride) 20 meq PO DAILY [facility] Stop: 01/02/18 09:01 Last Admin: 07/04/17 08:59 Dose: 20 meq Promethazine HCl (Phenergan) 12.5 mg IVP Q6HR PRN PRN Reason: Nausea And Vomiting Stop: 01/01/18 17:44 Rivaroxaban (Xarelto) 20 mg PO DAILY [facility] Stop: 01/02/18 09:01 Last Admin: 07/04/17 08:59 Dose: 20 mg Verapamil HCl (Calan Sr) 360 mg PO QAM [facility] Stop: 01/02/18 14:46 Last Admin: 07/04/17 08:58 Dose: 360 mg Vitamin D (Vitamin D) 1,000 unit PO DAILY [facility] Stop: 01/03/18 09:01 Last Admin: 07/04/17 08:59 Dose: 1,000 unit Transfer Discharge Sum: Data Procedures and tests throughout hospitalization: Pending Orders 07/02/17 17:43 Peripheral IV [RC] CONT Placement to Observation Routine Acetaminophen [Tylenol] 650 mg PO Q6HR PRN Docusate [Colace] 100 mg PO BID PRN HYDROcodone/Acet 5/325 mg [[place] 5-325 mg] 1 tab PO Q4HR PRN Morphine [Morphine Sulfate] 2 mg IVP Q4HR PRN Naloxone [Narcan] 0.4 mg IVP Q2MIN PRN Ondansetron [Zofran] 4 mg IVP Q8HR PRN Promethazine [Phenergan] 12.5 mg IVP Q6HR PRN Resuscitation Status: Active [RES] Routine 07/02/17 17:44 Cardiac Monitoring Med/Surg [RC] .CONT Oxygen via nasal cannula Nasal Cannula 2 lpm 07/02/17 17:46 Ipratropium/Albuterol Neb [Duoneb] 3 ml IH Q6H PRN Polyethylene Glycol 3350 [MiraLAX] 17 gm PO BID PRN 07/02/17 18:00 Azathioprine [Imuran] 50 mg PO QPM 07/02/17 18:15 Respiratory Infection Panel [MOLMIC] Routine 07/02/17 21:00 Acetylcysteine 20% 600 mg PO TID Atorvastatin [Lipitor] 10 mg PO HS Gabapentin [Neurontin] 600 mg PO BID Melatonin 3 mg PO HS 07/03/17 09:00 Aspirin 81 mg PO DAILY Azathioprine [Imuran] 100 mg PO QAM Digoxin [Lanoxin] 0.125 mg PO DAILY Losartan [Cozaar] 100 mg PO DAILY Potassium Chloride 20 meq PO DAILY Rivaroxaban [Xarelto] 20 mg PO DAILY 07/03/17 14:41 Intake and Output, Strict [RC] DAILY Measure weight [RC] .DAILY 07/03/17 14:45 Verapamil ER (24 HR) [Calan SR] 360 mg PO QAM 07/03/17 17:00 Carvedilol [Coreg] 37.5 mg PO BIDWM 07/03/17 21:00 Famotidine [Pepcid] 20 mg PO HS 07/04/17 07:59 Consult to Physical Therapy [CONS] Stat 07/04/17 08:00 Consult to Occupational Therapy [CONS] Stat 07/04/17 09:00 Calcium Carbonate [Tums] 500 mg PO DAILY Cholecalciferol (D-3) [Vitamin D] 1,000 unit PO DAILY 07/04/17 12:36 Consult to Neurology [CONS] Routine 07/04/17 Breakfast Cardiac Diet 07/05/17 08:00 Furosemide [Lasix] 40 mg PO BIDDIURETIC - Impressions ITS Impressions Echocardiogram 07/03/17 17:46 Impressions: LVEF 45%. Mild concentric left ventricular hypertrophy. Mildly dilated left ventricle. Mild global left ventricular systolic dysfunction. Atypical septal motion consistent with paced rhythm. Normal right ventricular structure and function. Severely dilated left atrium. No evidence of PFO with agitated saline contrast. Mild mitral regurgitation. Mild pulmonary hypertension. A device lead was visualized in the right atrium and right ventricle. Left Ventricular Wall Motion: Rest Echo Findings The apex, apical inferior, mid inferior, basal inferior, apical anterior, mid anterior, basal anterior, apical septal, mid inferior septal, basal inferior septal, apical lateral, mid anterior lateral, basal anterior lateral, mid anterior septal, mid inferior lateral, basal anterior septal and basal inferior lateral sharp were hypokinetic. Findings: Study Quality * Technically adequate exam. ECG Findings * Normal sinus rhythm. Left Ventricle * LVEF 45%. * Mild concentric left ventricular hypertrophy. * Mildly dilated left ventricle. * Mild global left ventricular systolic dysfunction. * Atypical septal motion consistent with paced rhythm. Right Ventricle * Normal right ventricular structure and function. Left Atrium * Severely dilated left atrium. Right Atrium * Moderately dilated right atrium. Interatrial Septum * No evidence of PFO with agitated saline contrast. Aortic Valve * Trileaflet aortic valve. * Mildly sclerotic aortic valve leaflets. * No aortic regurgitation. * No aortic stenosis. Mitral Valve * Normal mitral valve structure. * Mild mitral regurgitation. * No mitral stenosis. Tricuspid Valve * Normal tricuspid valve structure and function. * Trace tricuspid regurgitation. * Mild pulmonary hypertension. Pulmonic Valve * Normal pulmonic valve structure and function. * Trace pulmonic regurgitation. Aorta * Normally sized aortic root. Pericardium * The pericardium appears normal. IVC * Normal IVC dimensions and inspiratory collapse. Device lead * A device lead was visualized in the right atrium and right ventricle. Pulmonary Artery * Normal visualized portions of the main pulmonary artery. Transfer Discharge Sum: Prov Date of admission: 07/02/17 15:57 Primary care physician: Cholo Leslie MD Consults: 07/04/17 07:59 Consult to Physical Therapy [CONS] Stat Comment: Evaluate, develop and implement POC Reason for Consult: EVALUATION FOR DISPOSITION 07/04/17 08:00 Consult to Occupational Therapy [CONS] Stat Comment: Evaluate, develop and implement POC Reason for Consult: EVALUATION FOR DISPOSITION 07/04/17 12:36 Consult to Neurology [CONS] Routine Consulting Provider: Neurology [facility] Reason for Consult: worsening of brain mass Call Completed: Yes Discharging clinician: Mahnaz Bassett Anticipated date of transfer: 07/04/17 Receiving physician/facility: [facility] Transfer Discharge Sum: A/P - Plan Disposition: Transfer Other Transfer Discharge Sum: Hosp Hospital course: Ms. Durant is a 82 year old female with PMH of afib on xarelto, HTN, HLD, brain mass, CHF who was admitted for acute respiratory distress secondary CHF exacerbation. Daughter initially brought the patient to the hospital due to acute mental status change, mental status returned to baseline upon arrival to the hospital. However, she noted to have worsening of her mental status overnight. CT head showed a subtle slightly hyperdense mass in the anterior frontal region causing slight mass effect on the left frontal lobe with adjacent left frontal and parenchymal edema. The extent of the edema does not appear to have significantly changed compared to prior study. There is mild volume loss. Mild scattered white matter changes are seen. I spoke with the neurologist percussion instrument repairer who suggests transfer to [facility]. I spoke with the daughter who is the POA, who is in agreement with the transfer. Pt to be transferred to [facility] pending acceptance/bed availability - Time Spent with Patient Total time spent providing and/or coordinating transfer services: Greater than 30 minutes Transfer Discharge Sum: Exam - Constitutional Vitals: Vital Signs Temp Pulse Resp BP Pulse Ox 07/04/17 11:00 60 17 138/74 07/04/17 07:00 97.7 F 60 18 129/68 96 07/04/17 03:44 98.9 F 59 16 141/50 98 07/03/17 20:02 98.1 F 62 19 170/61 96 07/03/17 15:00 97.9 F 59 17 157/64 97 Intake and Output 07/03/17 07/04/17 07/04/17 23:59 07:59 15:59 Intake Total 360 / 360 Balance 360 / 360 Intake: Oral 360 / 360 Other: Meal Lunch Percent of Meal Consumed 80% Weight 90.7 kg Patient Weight 07/04/17 23:59 Weight 90.7 kg General appearance: obese - Head Head exam: Present: atraumatic, normocephalic - Eye Eye exam: Present: PERRL, conjuntiva pink, sclera anicteric - Respiratory Respiratory exam: Present: CTAB. Absent: wheezes, tachypnea - Cardiovascular Cardiovascular exam: Present: RRR, +S1, +S2 - GI/Abdominal GI/Abdominal exam: Present: normal bowel sounds, soft. Absent: distended, tenderness - Extremities Exam Extremities exam: Present: normal inspection. Absent: pedal edema, tenderness - Neurological Exam Neurological exam: Present: alert (oriented x 2)
[2017-07-05] MEDS ORDERED: Furosemide 40 MG TABLET PO SCH (08:00)
== END 2017-07-04 16:20 | disposition short-term general hospital (02) ==
LOC: EMEROO 12:15 → 2NENU 12:15 → SUATTDRO 15:57 → 2NENU 16:53
PROVIDERS: ADMIT Internal Medicine Nephrology; ATTEND Internal Medicine

== ENCOUNTER 2017-10-11 12:20 | Inpatient (IN) ==
--- NOTE | 2017-10-11 12:28 | Emergency Department Note ---
Disposition Clinical Impression: Acute exacerbation of chronic obstructive airways disease Disposition: Admitted As Inpatient Condition: Good General Adult HPI - General Stated complaint: ENEDINA Time Seen by Provider: 10/11/17 12:25 - Related Data Home Medications Medication Instructions Recorded Confirmed Azathioprine [Imuran] 50 mg PO DAILY 01/03/16 10/11/17 Digoxin [Lanoxin] 0.125 mg PO DAILY 01/03/16 10/11/17 Furosemide [Lasix] 40 mg PO DAILY 01/03/16 10/11/17 Levalbuterol [Xopenex INH] 2 puff PO Q6HR PRN 01/03/16 10/11/17 Losartan Potassium [Cozaar] 100 mg PO DAILY 01/03/16 10/11/17 Lovastatin 40 mg PO HS 01/03/16 10/11/17 Potassium Chloride [Klor-Con] 20 meq PO DAILY 01/03/16 10/11/17 Rivaroxaban [Xarelto] 20 mg PO DAILY 01/03/16 10/11/17 Ipratropium/Albuterol Neb [Duoneb] 3 ml IH Q6H PRN 07/02/17 10/11/17 Amitriptyline [Elavil] 25 mg PO HS 10/11/17 10/11/17 Carvedilol [Coreg] 18.75 mg PO BID 10/11/17 10/11/17 Furosemide [Lasix] 20 mg PO QPM 10/11/17 10/11/17 Gabapentin [Neurontin] 300 mg PO HS 10/11/17 10/11/17 LevETIRAcetam [Keppra] 1,000 mg PO BID 10/11/17 10/11/17 Levofloxacin [Levaquin] 500 mg PO DAILY 10/11/17 10/11/17 Omeprazole [PriLOSEC] 20 mg PO BIDAC 10/11/17 10/11/17 Oxygen 2 l NS AD 10/11/17 10/11/17 hydrALAZINE [HydrALAZINE] 25 mg PO BID 10/11/17 10/11/17 predniSONE [PredniSONE] See Taper PO DAILY 10/11/17 10/11/17 Allergies Allergy/AdvReac Type Severity Reaction Status Date / Time iodine Allergy Hives Verified 08/15/17 10:32 Penicillins [PCN] Allergy Hives Verified 08/15/17 10:32 ferric carboxymaltose AdvReac Intermediate Chest Pain Verified 08/15/17 10:32 [From Injectafer] IVP DYE Allergy Hives Uncoded 08/15/17 10:32 Past Medical History - Past Medical History Medical history: Reports: atrial fibrillation, CHF, COPD, hyperlipidemia, hypertension, RA, other Surgical history: Reports: cancer surgery, cataract, knee replacement, orthopedic, other, pacemaker/AICD Psychiatric history: Reports: anxiety 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 - Social History Smoking Status: Former smoker Smokeless Tobacco Status: No Alcohol use: Reports: none Drug use: Reports: none Course Vital Signs Temperature 98.2 F 10/11/17 12:22 Pulse Rate 78 10/11/17 12:22 Respiratory Rate 18 10/11/17 12:22 Blood Pressure 157/90 10/11/17 12:22 O2 Sat by Pulse Oximetry 92 10/11/17 12:22 Temperature 98.6 F 10/11/17 18:44 Pulse Rate 59 10/11/17 18:44 Respiratory Rate 18 10/11/17 18:44 Blood Pressure 213/68 10/11/17 18:45 O2 Sat by Pulse Oximetry 96 10/11/17 18:44 Oxygen Delivery Oxygen Delivery Nasal Cannula Medical Decision Making - Lab Data Result diagrams: 10/11/17 12:47 10/11/17 12:47 Lab Results 10/11/17 10/11/17 10/11/17 Range/Units 12:47 12:47 12:47 WBC 9.4 (4.3-11.1) K/mcL RBC 4.10 (3.82-4.97) M/mcL Hgb 11.1 L (11.5-15.4) g/dL Hct 36.2 (35.3-44.9) % MCV 88.3 (83.0-100.0) fL MCH 27.1 L (28.0-33.3) pg MCHC 30.7 L (31.6-35.5) g/dL RDW 14.3 (11.5-14.5) % Plt Count 243 (140-400) K/mcL MPV 10.2 (9.4-12.4) fL Immature Gran % 3.1 (0-4) % Seg Neutrophils % 87.8 % Lymphocytes % 5.3 % Monocytes % 2.8 % Eosinophils % 0.7 % Basophils % 0.3 % Neutrophils # 8.2 (1.6-8.9) K/mcL Lymphocytes # 0.5 L (0.6-4.6) K/mcL Monocytes # 0.3 (0.0-1.3) K/mcL Eosinophils # 0.1 (0.0-0.6) K/mcL Basophils # 0.0 (0.0-0.2) K/mcL PT 13.2 H (9.4-12.1) Seconds INR 1.2 Sodium (136-145) mEq/L Potassium (3.5-5.1) mEq/L Chloride (98-107) mEq/L Carbon Dioxide (23-29) mEq/L BUN (8-23) mg/dL Creatinine (0.60-1.20) mg/dL Est GFR ( Amer) (> 60) Est GFR (Non-Af Amer) (> 60) BUN/Creatinine Ratio (6-26) Glucose (70-105) mg/dL Calculated Osmolality (280-300) Calcium (8.6-10.3) mg/dL Total Bilirubin (0.3-1.0) mg/dL AST (13-39) Units/L ALT (7-52) Units/L Alkaline Phosphatase (34-104) Units/L Troponin I (< 0.04) ng/mL B-Natriuretic Peptide 78 (Less than 100) pg/mL Serum Total Protein (6.4-8.9) g/dL Albumin (3.5-5.7) g/dL Globulin (2.4-3.5) g/dL Albumin/Globulin Ratio (1.1-2.2) Digoxin (0.8-2.0) ng/mL 10/11/17 Range/Units 12:47 WBC (4.3-11.1) K/mcL RBC (3.82-4.97) M/mcL Hgb (11.5-15.4) g/dL Hct (35.3-44.9) % MCV (83.0-100.0) fL MCH (28.0-33.3) pg MCHC (31.6-35.5) g/dL RDW (11.5-14.5) % Plt Count (140-400) K/mcL MPV (9.4-12.4) fL Immature Gran % (0-4) % Seg Neutrophils % % Lymphocytes % % Monocytes % % Eosinophils % % Basophils % % Neutrophils # (1.6-8.9) K/mcL Lymphocytes # (0.6-4.6) K/mcL Monocytes # (0.0-1.3) K/mcL Eosinophils # (0.0-0.6) K/mcL Basophils # (0.0-0.2) K/mcL PT (9.4-12.1) Seconds INR Sodium 140 (136-145) mEq/L Potassium 4.9 (3.5-5.1) mEq/L Chloride 96 L (98-107) mEq/L Carbon Dioxide 33 H (23-29) mEq/L BUN 17 (8-23) mg/dL Creatinine 0.80 (0.60-1.20) mg/dL Est GFR ( Amer) > 60 (> 60) Est GFR (Non-Af Amer) > 60 (> 60) BUN/Creatinine Ratio 21 (6-26) Glucose 206 H (70-105) mg/dL Calculated Osmolality 298 (280-300) Calcium 9.1 (8.6-10.3) mg/dL Total Bilirubin 0.3 (0.3-1.0) mg/dL AST 11 L (13-39) Units/L ALT 12 (7-52) Units/L Alkaline Phosphatase 57 (34-104) Units/L Troponin I < 0.03 (< 0.04) ng/mL B-Natriuretic Peptide (Less than 100) pg/mL Serum Total Protein 6.2 L (6.4-8.9) g/dL Albumin 3.5 (3.5-5.7) g/dL Globulin 2.7 (2.4-3.5) g/dL Albumin/Globulin Ratio 1.3 (1.1-2.2) Digoxin 1.2 (0.8-2.0) ng/mL Attestation Statement - Attestation Attestation: I examined this patient and my medical decision-making was reviewed with the Resident Physician. I agree with the documented findings, disposition and treatment plan as described except to the extent set forth below. [id number] time provided Patient arrives by ambulance at the recommendation of her primary care provider. She is concerned about "fluid on my lungs" and volume overload. She has a known history of CHF. Appears in no acute distress on exam. Patient evaluated in conjunction with the resident physician Dr. Dickinson
--- NOTE | 2017-10-11 12:40 | Emergency Department Note ---
Disposition Clinical Impression: Acute exacerbation of chronic obstructive airways disease Disposition: Admitted As Inpatient Condition: Good Time of Disposition: 15:05 General Adult HPI - General Chief complaint: ED Upper Respiratory Infection Stated complaint: ENEDINA Time Seen by Provider: 10/11/17 12:25 Source: EMS Limitations: no limitations Nursing Notes Reviewed: Yes Vital Signs Reviewed: Yes - History of Present Illness HPI Narrative: Ms. Durant is a very pleasant 82-year-old female past history of systolic and his heart failure, atrial fibrillation with a pacemaker, brain tumor, COPD, hypertension, hyperlipidemia presents to the [facility] emergency department with a chief complaint of difficulty breathing duration of 2 weeks. Her primary care physician, Dr. Leslie, spoke to her this morning she she woke up with difficulty breathing and left-sided chest pain radiated down to her left arm and advised her to come to the emergency department for further evaluation. She was last hospitalized in August here at [facility] for difficulty breathing as well. She is apparently underwent evaluation by neurosurgery up in [place] and had successful resection of a brain tumor in August 2017. She underwent formal inpatient therapy for roughly 1 month and was discharged home a in late August. She followed up with Dr. Leslie in the office last week and was thought to have bronchitis/pneumonia was getting a prednisone and antibiotics. Symptoms mildly improved but had now worsened this morning. Last known echocardiogram was July 2017 showing EF of 45%. Patient is currently taking digoxin and xarleto. No history of NV in the past and has had heart catheterizations showing no disease. She reports that her current chest pain is sharp and constant. She reports orthopnea and PND with no significant change in her lower extremities edema. She is not able to lie flat for quite some time and sleeps on a hospital bed at home and on an incline. She is on oxygen at 2 L at all times. Daughter is present at bedside during this history of present illness. No other complaints at this time. Pain Scale: 8 - Related Data Home Medications Medication Instructions Recorded Confirmed Azathioprine [Imuran] 50 mg PO DAILY 01/03/16 10/11/17 Digoxin [Lanoxin] 0.125 mg PO DAILY 01/03/16 10/11/17 Furosemide [Lasix] 40 mg PO DAILY 01/03/16 10/11/17 Levalbuterol [Xopenex INH] 2 puff PO Q6HR PRN 01/03/16 10/11/17 Losartan Potassium [Cozaar] 100 mg PO DAILY 01/03/16 10/11/17 Lovastatin 40 mg PO HS 01/03/16 10/11/17 Potassium Chloride [Klor-Con] 20 meq PO DAILY 01/03/16 10/11/17 Rivaroxaban [Xarelto] 20 mg PO DAILY 01/03/16 10/11/17 Ipratropium/Albuterol Neb [Duoneb] 3 ml IH Q6H PRN 07/02/17 10/11/17 Amitriptyline [Elavil] 25 mg PO HS 10/11/17 10/11/17 Carvedilol [Coreg] 18.75 mg PO BID 10/11/17 10/11/17 Furosemide [Lasix] 20 mg PO QPM 10/11/17 10/11/17 Gabapentin [Neurontin] 300 mg PO HS 10/11/17 10/11/17 LevETIRAcetam [Keppra] 1,000 mg PO BID 10/11/17 10/11/17 Levofloxacin [Levaquin] 500 mg PO DAILY 10/11/17 10/11/17 Omeprazole [PriLOSEC] 20 mg PO BIDAC 10/11/17 10/11/17 Oxygen 2 l NS AD 10/11/17 10/11/17 hydrALAZINE [HydrALAZINE] 25 mg PO BID 10/11/17 10/11/17 predniSONE [PredniSONE] See Taper PO DAILY 10/11/17 10/11/17 Allergies Allergy/AdvReac Type Severity Reaction Status Date / Time iodine Allergy Hives Verified 08/15/17 10:32 Penicillins [PCN] Allergy Hives Verified 08/15/17 10:32 ferric carboxymaltose AdvReac Intermediate Chest Pain Verified 08/15/17 10:32 [From Injectafer] IVP DYE Allergy Hives Uncoded 08/15/17 10:32 Review of Systems: Constitutional: No fever Vision: No blurred vision ENT: No rhinorrhea Respiratory: cough Cardiovascular: chest pain Allergic: No allergies : No blood in urine GI: No blood in stool Hematologic: No bruising Dermatologic: No skin rash Musculoskeletal: Pain in LUE Neuro: No numbness of the extremities Past Medical History - Past Medical History Medical history: Reports: atrial fibrillation, CHF, COPD, hyperlipidemia, hypertension, RA, other Surgical history: Reports: cancer surgery, cataract, knee replacement, orthopedic, other, pacemaker/AICD Psychiatric history: Reports: anxiety 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 EYES: Ocular movements grossly intact Oropharynx: pink/moist RESP: bibasliar rales present CARD: Regular rhythm, without murmurs, rubs, or gallop ABD: grossly normal, soft, non-tender, no guarding/distention/rigidity SKIN: normal appearance, no pallor/diaphoresis,mottling,jaundice,cyanosis EXT: PT pulses 2+ and symmetrical; trace edema PSYCH: appropriate mood/affect - General Limitations: no limitations General appearance: alert, in no apparent distress Course Course Narrative: Patient was seen and examined at 12:30 with daughter at bedside. Vitals were reviewed and normal. EKG performed and shows paced rhythm with no ischemic changes. Physical examination shows diffuse wheezing and no lower extremity edema bilaterally. Starting workup with blood work, chest x-ray, troponin and checking her dig level. Patient appears comfortable at this time. 1307: Patient is now in medical bed 10. Her breathing is minimally worse we will begin with a DuoNeb treatment at this time. An suspicious for a COPD exacerbation versus CHF. Disposition and labs pending. 1300: Chest x-ray demonstrating cardiomegaly without any pulmonary edema or acute process. Labs resulted. No leukocytosis. BnP 78. Breathing treatment provided minimal relief. 125 cm was given. Levaquin 500mg IV x1 given. Spoke with hospitalist who accepted the patient for hospital admission. Respiratory infectious panel ordered. Patient family aware of disposition and are comfortable moving forward. Vital Signs Temperature 98.2 F 10/11/17 12:22 Pulse Rate 78 10/11/17 12:22 Respiratory Rate 18 10/11/17 12:22 Blood Pressure 157/90 10/11/17 12:22 O2 Sat by Pulse Oximetry 92 10/11/17 12:22 Temperature 98.2 F 10/11/17 12:22 Pulse Rate 78 10/11/17 12:22 Respiratory Rate 18 10/11/17 14:12 Blood Pressure 157/90 10/11/17 12:22 O2 Sat by Pulse Oximetry 92 10/11/17 14:12 Oxygen Delivery Oxygen Delivery Room Air Medical Decision Making - Medical Records Medical records reviewed: Yes I reviewed the patient's medical records. - Lab Data Lab results reviewed: Yes I reviewed the patient's lab results. Result diagrams: 10/11/17 12:47 10/11/17 12:47 Lab Results 10/11/17 10/11/17 10/11/17 Range/Units 12:47 12:47 12:47 WBC 9.4 (4.3-11.1) K/mcL RBC 4.10 (3.82-4.97) M/mcL Hgb 11.1 L (11.5-15.4) g/dL Hct 36.2 (35.3-44.9) % MCV 88.3 (83.0-100.0) fL MCH 27.1 L (28.0-33.3) pg MCHC 30.7 L (31.6-35.5) g/dL RDW 14.3 (11.5-14.5) % Plt Count 243 (140-400) K/mcL MPV 10.2 (9.4-12.4) fL Immature Gran % 3.1 (0-4) % Seg Neutrophils % 87.8 % Lymphocytes % 5.3 % Monocytes % 2.8 % Eosinophils % 0.7 % Basophils % 0.3 % Neutrophils # 8.2 (1.6-8.9) K/mcL Lymphocytes # 0.5 L (0.6-4.6) K/mcL Monocytes # 0.3 (0.0-1.3) K/mcL Eosinophils # 0.1 (0.0-0.6) K/mcL Basophils # 0.0 (0.0-0.2) K/mcL PT 13.2 H (9.4-12.1) Seconds INR 1.2 Sodium (136-145) mEq/L Potassium (3.5-5.1) mEq/L Chloride (98-107) mEq/L Carbon Dioxide (23-29) mEq/L BUN (8-23) mg/dL Creatinine (0.60-1.20) mg/dL Est GFR ( Amer) (> 60) Est GFR (Non-Af Amer) (> 60) BUN/Creatinine Ratio (6-26) Glucose (70-105) mg/dL Calculated Osmolality (280-300) Calcium (8.6-10.3) mg/dL Total Bilirubin (0.3-1.0) mg/dL AST (13-39) Units/L ALT (7-52) Units/L Alkaline Phosphatase (34-104) Units/L Troponin I (< 0.04) ng/mL B-Natriuretic Peptide 78 (Less than 100) pg/mL Serum Total Protein (6.4-8.9) g/dL Albumin (3.5-5.7) g/dL Globulin (2.4-3.5) g/dL Albumin/Globulin Ratio (1.1-2.2) Digoxin (0.8-2.0) ng/mL 10/11/17 Range/Units 12:47 WBC (4.3-11.1) K/mcL RBC (3.82-4.97) M/mcL Hgb (11.5-15.4) g/dL Hct (35.3-44.9) % MCV (83.0-100.0) fL MCH (28.0-33.3) pg MCHC (31.6-35.5) g/dL RDW (11.5-14.5) % Plt Count (140-400) K/mcL MPV (9.4-12.4) fL Immature Gran % (0-4) % Seg Neutrophils % % Lymphocytes % % Monocytes % % Eosinophils % % Basophils % % Neutrophils # (1.6-8.9) K/mcL Lymphocytes # (0.6-4.6) K/mcL Monocytes # (0.0-1.3) K/mcL Eosinophils # (0.0-0.6) K/mcL Basophils # (0.0-0.2) K/mcL PT (9.4-12.1) Seconds INR Sodium 140 (136-145) mEq/L Potassium 4.9 (3.5-5.1) mEq/L Chloride 96 L (98-107) mEq/L Carbon Dioxide 33 H (23-29) mEq/L BUN 17 (8-23) mg/dL Creatinine 0.80 (0.60-1.20) mg/dL Est GFR ( Amer) > 60 (> 60) Est GFR (Non-Af Amer) > 60 (> 60) BUN/Creatinine Ratio 21 (6-26) Glucose 206 H (70-105) mg/dL Calculated Osmolality 298 (280-300) Calcium 9.1 (8.6-10.3) mg/dL Total Bilirubin 0.3 (0.3-1.0) mg/dL AST 11 L (13-39) Units/L ALT 12 (7-52) Units/L Alkaline Phosphatase 57 (34-104) Units/L Troponin I < 0.03 (< 0.04) ng/mL B-Natriuretic Peptide (Less than 100) pg/mL Serum Total Protein 6.2 L (6.4-8.9) g/dL Albumin 3.5 (3.5-5.7) g/dL Globulin 2.7 (2.4-3.5) g/dL Albumin/Globulin Ratio 1.3 (1.1-2.2) Digoxin 1.2 (0.8-2.0) ng/mL - Radiology Data Radiology results reviewed: Yes I reviewed the patient's radiology results.
[2017-10-11] MEDS ORDERED: Ipratropium/Albuterol Neb 3 ML IH ONE (13:06)
[2017-10-11 13:12] LABS: Eosinophils % 0.7 %; Hematocrit 36.2 % (35.3-44.9); Hemoglobin 11.1 g/dL (11.5-15.4); Immature Granulocytes % 3.1 % (0-4); Lymphocytes % 5.3 %; Mean Corpuscular HGB Conc 30.7 g/dL (31.6-35.5); Mean Corpuscular Hemoglobin 27.1 pg (28.0-33.3); Mean Corpuscular Volume 88.3 fL (83.0-100.0); Mean Platelet Volume 10.2 fL (9.4-12.4); Monocytes % 2.8 %; Platelet Count 243 K/mcL (140-400); Red Cell Distribution Width 14.3 % (11.5-14.5); Segmented Neutrophils % 87.8 %
[2017-10-11 13:13] LABS: Basophils % 0.3 %; Eosinophils # 0.1 K/mcL (0.0-0.6); Lymphocytes # 0.5 K/mcL (0.6-4.6); Monocytes # 0.3 K/mcL (0.0-1.3); Neutrophils # 8.2 K/mcL (1.6-8.9)
[2017-10-11 13:18] LABS: INR 1.2; Prothrombin Time 13.2 Seconds (9.4-12.1)
[2017-10-11 13:26] LABS: Troponin I < 0.03 ng/mL (< 0.04)
[2017-10-11 14:05] LABS: Alanine Aminotransferase 12 Units/L (7-52); Albumin 3.5 g/dL (3.5-5.7); Albumin/Globulin Ratio 1.3 (1.1-2.2); Alkaline Phosphatase 57 Units/L (34-104); Aspartate Amino Transferase 11 Units/L (13-39); BUN/Creatinine Ratio 21 (6-26); Bilirubin,Total 0.3 mg/dL (0.3-1.0); Blood Urea Nitrogen 17 mg/dL (8-23); Calcium 9.1 mg/dL (8.6-10.3); Carbon Dioxide 33 mEq/L (23-29); Chloride 96 mEq/L (98-107); Globulin 2.7 g/dL (2.4-3.5); Glucose 206 mg/dL (70-105); Osmolality,Calculated 298 (280-300); Potassium 4.9 mEq/L (3.5-5.1); Sodium 140 mEq/L (136-145); Total Protein 6.2 g/dL (6.4-8.9); eGFR For African Americans > 60 (> 60); eGFR For Non-African Americans > 60 (> 60)
[2017-10-11] MEDS ORDERED: methylPREDNISolone 125 MG/2 ML VIAL IVP ONE (14:13)
[2017-10-11 15:06] LABS: Digoxin 1.2 ng/mL (0.8-2.0)
[2017-10-11] MEDS ORDERED: Levofloxacin 500 MG/100 ML 500 MG/100 ML BAG IVPB ONE (15:22)
[2017-10-11] MEDS ORDERED: Naloxone 0.4 MG/ML INJ IVP PRN (17:28)
--- NOTE | 2017-10-11 17:47 | Internal Med History&Physical ---
<Sumit David - Last Filed: 10/11/17 18:40> Date of Encounter: 10/11/17 Time of Encounter: 15:30 Internal Medicine - H&P: HPI Chief complaint: SOB/Dyspnea Admitted From: Emergency Dept Plans for Post Hospital Care: Home History of present illness: Ms. Durant is a 82 year old female w/PMH of atrial fibrillation, CHF, COPD, HLD, HTN, RA, and GERD presents from the ED with chief complaint of shortness of breath and dyspnea for the past 2 weeks. Patient states this morning SOB became worse. Patient last hospitalized [facility] in August for SOB/dyspnea as well. Reports worse with exertion. Also reports left-sided chest pain with radiation down left arm. States she had recent brain surgery for resection of a brain tumor in August 2017. Echo in July 2017 showed EF of 45%. Reports weakness, fatigue, orthopnea and chest pain worsens with inspiration. Patient denies recent illness, fever, chills, nausea, vomiting, headache, changes in vision, palpitations, abdominal pain, diarrhea, constipation, dizziness, lightheadedness, pre-syncope, or syncope. Past Med Surg Social Fam HX - Past Medical History Source: patient, old records reviewed Medical history: atrial fibrillation, CHF, COPD, GERD, hyperlipidemia, hypertension, RA, other Psychiatric history: anxiety - Past Surgical History Surgical History: cancer surgery (Resection of brain tumor), cataract, knee replacement, orthopedic, other, pacemaker/AICD - Social History Smoking Status: Former smoker Smokeless Tobacco Status: No Alcohol use: none Drug use: none Current living situation: Home Activity Level: Uses cane/walker Recent Out of Country Travel Within the Last 8 Weeks: No Exposure or Possible Exposure to Illness During Travel: No - Family History Mother Adopted: No Family Member Ethnicity: Non- Living Status: Age at : 47 Cause of : Metastatic cancer Hx Family Cancer: Yes (liver cancer, stomach cancer) Sister Family Member Ethnicity: Non- Living Status: Age at : 80 Cause of : Alzheimer's disease Hx Family Neurologic Disorders: Yes (Alzheimer's disease) Father Family Member Ethnicity: Non- Living Status: Age at : 96 Cause of : Prostate cancer Hx Family Cancer: Yes (Prostate) Brother Family Member Ethnicity: Non- Living Status: Age at : 51 Cause of : Lung cancer Hx Family Cancer: Yes (Lung) Internal Medicine - H&P: Meds Azathioprine [Imuran] 50 mg PO DAILY 01/03/16 [History] Digoxin [Lanoxin] 0.125 mg PO DAILY 01/03/16 [History] Furosemide [Lasix] 40 mg PO DAILY 01/03/16 [History] Levalbuterol [Xopenex INH] 2 puff PO Q6HR PRN 01/03/16 [History] Losartan Potassium [Cozaar] 100 mg PO DAILY 01/03/16 [History] Lovastatin 40 mg PO HS 01/03/16 [History] Potassium Chloride [Klor-Con] 20 meq PO DAILY 01/03/16 [History] Rivaroxaban [Xarelto] 20 mg PO DAILY 01/03/16 [History] Ipratropium/Albuterol Neb [Duoneb] 3 ml IH Q6H PRN 07/02/17 [History] Amitriptyline [Elavil] 25 mg PO HS 10/11/17 [History] Carvedilol [Coreg] 18.75 mg PO BID 10/11/17 [History] Furosemide [Lasix] 20 mg PO QPM 10/11/17 [History] Gabapentin [Neurontin] 300 mg PO HS 10/11/17 [History] LevETIRAcetam [Keppra] 1,000 mg PO BID 10/11/17 [History] Levofloxacin [Levaquin] 500 mg PO DAILY 10/11/17 [History] Omeprazole [PriLOSEC] 20 mg PO BIDAC 10/11/17 [History] Oxygen 2 l NS AD 10/11/17 [History] hydrALAZINE [HydrALAZINE] 25 mg PO BID 10/11/17 [History] predniSONE [PredniSONE] See Taper PO DAILY 10/11/17 [History] 3 Allergy/AdvReac Type Severity Reaction Status Date / Time iodine Allergy Hives Verified 08/15/17 10:32 Penicillins [PCN] Allergy Hives Verified 08/15/17 10:32 ferric carboxymaltose AdvReac Intermediate Chest Pain Verified 08/15/17 10:32 [From Injectafer] IVP DYE Allergy Hives Uncoded 08/15/17 10:32 All Systems PM: A 10-system review of systems was performed and is negative for pertinent findings except as documented above in the HPI. - Constitutional Constitutional: as per HPI, fatigue, weakness, no chills, no fever(s), no night sweats - EENT Eyes: no change in vision, no discharge, no pain, no photophobia Ears: no ear discharge, no ear pain, no tinnitus Nose, mouth and throat: no dysphagia, no nasal discharge, no neck pain, no sore throat - Breasts Breasts: as per HPI - Cardiovascular Cardiovascular ROS IM: as per HPI, chest pain (Left-sided that worsens w/ inspiration), dyspnea, dyspnea on exertion, irregular heart rhythm, orthopnea, no diaphoresis, no lightheadedness, no palpitations, no syncope - Respiratory Respiratory: as per HPI, cough, dyspnea, dyspnea on exertion, wheezing, pain on inspiration, no excessive phlegm production - Gastrointestinal Gastrointestinal: no abdominal pain, no diarrhea, no hematemesis, no hematochezia, no melena, no nausea, no vomiting - Genitourinary Genitourinary: no change in urinary stream, no dysuria, no flank pain, no hematuria Menstruation: as per HPI - Musculoskeletal Musculoskeletal ROS IM: no numbness, no tingling - Integumentary Integumentary IM: no rash, no unusual bruising - Neurological Neurological ROS: no confusion, no convulsions, no focal weakness, no numbness, no tingling, no tremor(s) - Psychiatric Psychiatric: as per HPI, anxiety - Endocrine Endocrine IM: as per HPI - Hematologic/Lymphatic Hematologic/Lymphatic: no easy bruising - Allergic/Immunologic Allergic/Immunologic: as per HPI - Constitutional Vitals: Temp Pulse Resp BP Pulse Ox 98.2 F 78 18 157/90 92 10/11/17 12:22 10/11/17 12:22 10/11/17 14:12 10/11/17 12:22 10/11/17 14:12 General appearance: Present: cooperative, mild distress (Respiratory), A&O X 3, pleasant, obese, answers questions appropriately - Head Head exam: Present: atraumatic, normocephalic - Eye Eye exam: Present: PERRL, conjuntiva pink, sclera anicteric Pupils: Present: PERRL - ENT ENT exam: Present: normal exam - Neck Neck exam general surgery: Present: normal inspection, supple, trachea midline. Absent: lymphadenopathy - Respiratory Respiratory exam: Present: accessory muscle use, decreased breath sounds, rhonchi, wheezes - Cardiovascular Cardiovascular exam: Present: irregular rhythm. Absent: diastolic murmur, gallop, rubs, systolic murmur - GI/Abdominal GI/Abdominal exam: Present: normal bowel sounds, soft, no peritoneal signs. Absent: distended, tenderness - Rectal Rectal exam: Present: deferred - Additional comments: exam deferred. - Extremities Exam Extremities exam: Present: warm, radial pulses palpable and symmetrical. Absent : calf tenderness, cyanotic, pedal edema - Back Exam Back exam: Present: normal inspection - Neurological Exam Neurological exam: Present: CN II-XII intact, oriented X3, no focal deficits. Absent: pronater drift, facial droop, speech deficit - Psychiatric Psychiatric exam: Present: normal affect, normal mood - Skin Skin exam: Present: dry, intact Internal Med - H&P Results - Labs CBC & Chem 7: 10/11/17 12:47 10/11/17 12:47 - EKG Data Prior EKG available for review: yes EKG comments: 10/11/17 18:05 EKG dated 08/15/17 shows electronic atrial pacemaker and electronic ventricular pacemaker. EKG dated 10/11/17 shows electronic atrial pacemaker and electronic ventricular pacemaker. - Diagnostic Studies Chest x-ray Additional comments: Impressions Chest X-Ray 10/11/17 12:25 IMPRESSION: Cardiomegaly without overt pulmonary edema. No definite acute focal process. D/ / Rajat Trevino MD / Rajat Trevino MD Interpreting Provider: Rajat Trevino MD - Assessment and plan (1) Acute exacerbation of chronic obstructive airways disease Current Visit: Yes Status: Acute Assessment and plan: Acute exacerbation of COPD. SOB/dyspnea over past two weeks with worsening sx today. Former smoker. No pedal edema present on exam. Hx of CHF and COPD. Solumedrol IVP 60 mg Q8HR. DuoNebs Q6HR scheduled. Continue pts. inhalers. Will add 1.5L daily fluid restriction d/t CHF hx. Supplemental O2 w/titration and SpO2 monitoring. Continuous cardiac telemetry d/t chest pain/discomfort. Levaquin IVPB 750 mg daily for bronchitis coverage. Monitor pt. and f/u labs. Pt. discussed w/Dr. Norris who agrees w/plan of care. Pt. is high risk for further morbidity and cardiac/respiratory distress d/t current sx, hx of COPD exacerbations, hx of co-morbidities, and risk factors. Observation. (2) Chest pain Current Visit: Yes Status: Acute Assessment and plan: Acute chest pain that pt. describes as left-sided w/radiation to left arm. Reports worsening w/inspiration/cough. Likely d/t current COPD exacerbation. Hx of chronic Afib. Echocardiogram in July 2017 showed LVEF of 45%. Initial troponin <0.03. Will trend. Continuous cardiac telemetry. Will continue pts. Xarelto, digoxin, statin, and HTN medications. Will consider Cardiology consult if troponins become elevated. Qualifiers: Chest pain type: other chest pain Qualified Code(s): R07.89 - Other chest pain; R07.8 - Other chest pain (3) Acute bronchitis Current Visit: Yes Status: Acute Assessment and plan: Acute bronchitis superimposed on acute exacerbation of COPD. DuoNebs Q6HR scheduled. Mucinex for cough. IVPB levaquin 750 mg daily for infection coverage. Respiratory infection panel ordered. Will adjust abx coverage based on respiratory infection panel results if warranted. Qualifiers: Bronchitis organism: unspecified organism Qualified Code(s): J20.9 - Acute bronchitis, unspecified (4) HLD (hyperlipidemia) Current Visit: Yes Status: Chronic Assessment and plan: Hx of chronic HLD. Lipid panel in a.m. labs. Continue pts. Lovastatin. Qualifiers: Hyperlipidemia type: pure hypercholesterolemia Qualified Code(s): E78.00 - Pure hypercholesterolemia, unspecified; E78.0 - Pure hypercholesterolemia (5) HTN (hypertension) Current Visit: Yes Status: Chronic Assessment and plan: Hx of chronic HTN. Monitor pt. and VS. Continue pts. Cozaar, hydralazine, Coreg. Qualifiers: Hypertension type: essential hypertension Qualified Code(s): I10 - Essential (primary) hypertension (6) A-fib Current Visit: Yes Status: Chronic Assessment and plan: Hx of chronic Afib. AICD/Pacemaker in place. Continuous cardiac telemetry. Echocardiogram in July 2017 showed LVEF of 45%. Continue patient's digoxin. Qualifiers: Atrial fibrillation type: chronic Qualified Code(s): I48.2 - Chronic atrial fibrillation (7) Anemia Current Visit: Yes Status: Chronic Assessment and plan: Hx of chronic anemia. Hgb 11.1 and Hct 36.2 on admission which is improved from last admission. Monitor H/H in f/u labs. Monitor pt. for signs of bleeding. Qualifiers: Anemia type: unspecified type Qualified Code(s): D64.9 - Anemia, unspecified (8) Blindness Current Visit: Yes Status: Chronic Assessment and plan: Hx of chronic blindness. Falls/safety precautions, up with assist, bed rest w/ bathroom privileges w/assist only. (9) Chronic systolic CHF (congestive heart failure) Current Visit: Yes Status: Chronic Assessment and plan: Hx of chronic systolic CHF. Currently stable. No pedal edema on exam. Current sx most likely COPD exacerbation. Echocardiogram in July showed LVEF of 45%. Continuous cardiac telemetry. Continue pts. PO lasix daily. Monitor I&O and daily weight. 1.5L daily fluid restriction. (10) Mass, brain Current Visit: Yes Status: Resolved Assessment and plan: Hx of brain tumor w/resection surgery performed in August 2017. Continue pts. Keppra and monitor pt. closely for neurological changes. (11) DVT prophylaxis Current Visit: Yes Status: Acute Assessment and plan: Continue pts. Xarelto for DVT prophylaxis. Monitor pt. for signs of bleeding. (12) Rheumatoid arthritis Current Visit: Yes Status: Chronic Assessment and plan: Hx of chronic RA. Continue pts. Imuran. Qualifiers: Rheumatoid arthritis location: unspecified site Rheumatoid factor presence : unspecified presence Qualified Code(s): M06.9 - Rheumatoid arthritis, unspecified - Time Spent With Patient Total time spent is greater than 50% in coordination of care (as documented) at patient's floor/unit and/or counseling patient: Greater than 35 minutes <Harsh Norris - Last Filed: 10/11/17 23:42> Date of Encounter: 10/11/17 Internal Medicine - H&P: HPI History of present illness: Ms. Durant is a 82 year old female All Systems PM: A 10-system review of systems was performed and is negative for pertinent findings except as documented above in the HPI. - Constitutional Vitals: Temp Pulse Resp BP Pulse Ox 98.3 F 66 18 166/79 96 10/11/17 23:14 10/11/17 23:14 10/11/17 23:14 10/11/17 23:15 10/11/17 23:14 Internal Med - H&P Results - Labs CBC & Chem 7: 10/11/17 12:47 10/11/17 12:47 - ABG Interpretation ABG results: 10/11/17 20:36 ABG pH 7.42 ABG pCO2 56 H ABG pO2 90 ABG HCO3 37 H ABG Total CO2 38 H ABG O2 Saturation 97 ABG Base Excess 10 H - Attending Attestation I examined this patient and my medical decision-making was reviewed with the Resident Physician/[employer]. I agree with the documented findings, disposition and treatment plan as described except to the extent set forth below. Multiple comorbid conditions. Admitted with COPD exacerbation. Antibiotics/steroids/broncholith. Patient is known to pulmonary service/pulmonology from this hospital. If patient does not improve in next 48 hours please consider pulmonary evaluation. - Assessment and plan (1) A-fib Current Visit: Yes Status: Chronic Qualifiers: Atrial fibrillation type: chronic Qualified Code(s): I48.2 - Chronic atrial fibrillation (2) Blindness Current Visit: Yes Status: Chronic (3) Anemia Current Visit: Yes Status: Chronic Qualifiers: Anemia type: unspecified type Qualified Code(s): D64.9 - Anemia, unspecified (4) Chest pain Current Visit: Yes Status: Acute Qualifiers: Chest pain type: other chest pain Qualified Code(s): R07.89 - Other chest pain; R07.8 - Other chest pain (5) Chronic systolic CHF (congestive heart failure) Current Visit: Yes Status: Chronic (6) DVT prophylaxis Current Visit: Yes Status: Acute (7) Acute exacerbation of chronic obstructive airways disease Current Visit: Yes Status: Acute (8) Acute bronchitis Current Visit: Yes Status: Acute Qualifiers: Bronchitis organism: unspecified organism Qualified Code(s): J20.9 - Acute bronchitis, unspecified (9) Mass, brain Current Visit: Yes Status: Resolved (10) HLD (hyperlipidemia) Current Visit: Yes Status: Chronic Qualifiers: Hyperlipidemia type: pure hypercholesterolemia Qualified Code(s): E78.00 - Pure hypercholesterolemia, unspecified; E78.0 - Pure hypercholesterolemia (11) HTN (hypertension) Current Visit: Yes Status: Chronic Qualifiers: Hypertension type: essential hypertension Qualified Code(s): I10 - Essential (primary) hypertension (12) Rheumatoid arthritis Current Visit: Yes Status: Chronic Qualifiers: Rheumatoid arthritis location: unspecified site Rheumatoid factor presence : unspecified presence Qualified Code(s): M06.9 - Rheumatoid arthritis, unspecified - Time Spent With Patient Total time spent is greater than 50% in coordination of care (as documented) at patient's floor/unit and/or counseling patient:
[2017-10-11] MEDS: Gabapentin 300 MG CAPSULE PO SCH (20:09)
[2017-10-11] MEDS: levETIRAcetam 250 MG TABLET PO SCH (20:09)
[2017-10-11] MEDS: Furosemide 20 MG TABLET PO SCH (20:09)
[2017-10-11] MEDS: Levofloxacin 750 MG/150 ML 750 MG/150 ML BAG IVPB SCH (20:10)
[2017-10-11] MEDS: hydrALAZINE 25 MG TABLET PO SCH (20:10)
[2017-10-11 20:39] LABS: ABG Base Excess 10 mEq/L (-2 to 3); ABG HCO3 37 mEq/L (21-27); ABG Oxygen Saturation 97 % (95-98); ABG PCO2 56 mmHg (35-45); ABG PH 7.42 pH Units (7.32-7.45); ABG PO2 90 mmHg (85-104); ABG TCO2 38 mEq/L (20-26)
[2017-10-11 21:46] LABS: Adenovirus Not Detected (Not Detect); Bordetella Pertussis Not Detected (Not Detect); Chlamydophila pneumoniae Not Detected (Not Detect); Coronavirus 229E Not Detected (Not Detect); Coronavirus HKU1 Not Detected (Not Detect); Coronavirus NL63 Not Detected (Not Detect); Coronavirus OC43 Not Detected (Not Detect); Human Metapneumovirus Not Detected (Not Detect); Human Rhinovirus/Enterovirus Not Detected (Not Detect); Influenza A Subtype 2009 H1 Not Detected (Not Detect); Influenza A Untypeable Not Detected (Not Detect); Influenza B Not Detected (Not Detect); Mycoplasma pneumoniae Not Detected (Not Detect); Parainfluenza Virus 1 Not Detected (Not Detect); Parainfluenza Virus 2 Not Detected (Not Detect); Parainfluenza Virus 3 Not Detected (Not Detect); Parainfluenza Virus 4 Not Detected (Not Detect); Respiratory Syncytial Virus Not Detected (Not Detect)
[2017-10-11] MEDS: Acetaminophen 325 MG TABLET PO PRN (21:48)
[2017-10-11] MEDS ORDERED: *HR* Alteplase (Cathflo) 2 MG VIAL IVP ONE (21:48)
[2017-10-12] MEDS: methylPREDNISolone 125 MG/2 ML VIAL IVP SCH ×4 (00:20→14:53)
[2017-10-12] MEDS: Levofloxacin 750 MG/150 ML 750 MG/150 ML BAG IVPB SCH (00:21)
[2017-10-12] MEDS: Ipratropium/Albuterol Neb 3 ML IH PRN ×2 (00:45→10:31)
--- NOTE | 2017-10-12 01:07 | Event Note ---
Date of Encounter: 10/12/17 Time of Encounter: 21:30 Notified by pts. nurse that pts. IV was occluded and not working after receiving partial dose of levaquin IVPB. Concern was for clot so Alteplase ( Cathflo) 2 mg IVP ONCE ordered w/protocol for single lumen dosing (0.73 mL). Nurse reported that Alteplase did not work and IV site not working. I was notified by nurse that medication was not administered per protocol so stat PTT and PT/INR ordered to assess coagulation status. Site was again attempted to be flushed w/0.9 NS flush but did not flush so site was capped off. IVPB levaquin order cancelled and changed to 750 mg PO daily. Pt. and f/u labs to be monitored closely.
[2017-10-12] MEDS: levoFLOXacin 750 MG TABLET PO SCH ×2 (01:24→08:59)
[2017-10-12 01:38] LABS: Basophils % 0.1 %; Hematocrit 35.3 % (35.3-44.9); Hemoglobin 10.8 g/dL (11.5-15.4); Immature Granulocytes % 2.1 % (0-4); Lymphocytes # 0.3 K/mcL (0.6-4.6); Lymphocytes % 3.8 %; Mean Corpuscular HGB Conc 30.6 g/dL (31.6-35.5); Mean Corpuscular Hemoglobin 26.6 pg (28.0-33.3); Mean Corpuscular Volume 86.9 fL (83.0-100.0); Mean Platelet Volume 10.1 fL (9.4-12.4); Monocytes # 0.1 K/mcL (0.0-1.3); Monocytes % 0.8 %; Neutrophils # 8.2 K/mcL (1.6-8.9); Platelet Count 243 K/mcL (140-400); Red Blood Count 4.06 M/mcL (3.82-4.97); Red Cell Distribution Width 14.2 % (11.5-14.5); Segmented Neutrophils % 93.2 %
[2017-10-12 01:46] LABS: INR 1.2; Prothrombin Time 12.9 Seconds (9.4-12.1)
[2017-10-12 01:59] LABS: Alanine Aminotransferase 11 Units/L (7-52); Albumin 3.3 g/dL (3.5-5.7); Albumin/Globulin Ratio 1.2 (1.1-2.2); Alkaline Phosphatase 54 Units/L (34-104); Aspartate Amino Transferase 9 Units/L (13-39); BUN/Creatinine Ratio 25 (6-26); Bilirubin,Total 0.3 mg/dL (0.3-1.0); Blood Urea Nitrogen 22 mg/dL (8-23); Calcium 8.9 mg/dL (8.6-10.3); Carbon Dioxide 32 mEq/L (23-29); Chloride 95 mEq/L (98-107); Chol/HDL Ratio 3.3 (0-4.9); Cholesterol 159 mg/dL (< 200); Globulin 2.7 g/dL (2.4-3.5); Glucose 330 mg/dL (70-105); HDL Cholesterol 48 mg/dL (40-59); LDL Cholesterol,Calculated 69 mg/dL (0-99); Osmolality,Calculated 302 (280-300); Sodium 138 mEq/L (136-145); Triglycerides 212 mg/dL (< 150); eGFR For African Americans > 60 (> 60); eGFR For Non-African Americans > 60 (> 60)
[2017-10-12 08:30] LABS: Estimated Average Glucose 143 mg/dl; Hemoglobin A1C 6.6 %
[2017-10-12] MEDS: *HR* Digoxin 0.125 MG TABLET PO SCH (08:57)
[2017-10-12] MEDS: Acetaminophen 325 MG TABLET PO PRN ×2 (08:59→14:55)
[2017-10-12] MEDS ORDERED: *HR* Rivaroxaban 10 MG TABLET PO SCH (09:00)
[2017-10-12] MEDS ORDERED: levoFLOXacin 750 MG TABLET PO SCH (09:00)
[2017-10-12] MEDS: hydrALAZINE 25 MG TABLET PO SCH ×2 (09:02→21:22)
[2017-10-12] MEDS: Furosemide 40 MG TABLET PO SCH (09:02)
[2017-10-12] MEDS: levETIRAcetam 250 MG TABLET PO SCH ×2 (09:03→21:24)
--- NOTE | 2017-10-12 11:38 | Internal Med Progress Note ---
Date of Encounter: 10/12/17 Time of Encounter: 11:36 - Assessment and plan (1) Acute exacerbation of chronic obstructive airways disease Current Visit: Yes Status: Acute Assessment and plan: Cont to have wheezing will increase Duonebs to q4h cont solumedrol every 8 hrs O2 as needed, Incentive spirometry PT/OT for eval dt weakness from SOB Resp panel negative awiaitnfg blood culture Will obtain Sputum culture Levaquin 750mg IVP daily (2) A-fib Current Visit: Yes Status: Chronic Assessment and plan: Hx of chronic Afib. AICD/Pacemaker in place. Continuous cardiac telemetry. Echocardiogram in July 2017 showed LVEF of 45%. Continue patient's digoxin. Qualifiers: Atrial fibrillation type: chronic Qualified Code(s): I48.2 - Chronic atrial fibrillation (3) Blindness Current Visit: Yes Status: Chronic Assessment and plan: Hx of chronic blindness. Falls/safety precautions, up with assist, bed rest w/ bathroom privileges w/assist only. (4) Anemia Current Visit: Yes Status: Chronic Assessment and plan: Hx of chronic anemia. Hgb 11.1 and Hct 36.2 on admission which is improved from last admission. Hgb stable no active bleeding Monitor H/H in f/u labs. Monitor pt. for signs of bleeding. Qualifiers: Anemia type: unspecified type Qualified Code(s): D64.9 - Anemia, unspecified (5) Chest pain Current Visit: Yes Status: Acute Assessment and plan: Acute chest pain that pt. describes as left-sided w/radiation to left arm. Reports worsening w/inspiration/cough. Likely d/t current COPD exacerbation. Hx of chronic Afib. Echocardiogram in July 2017 showed LVEF of 45%. Trop have been negative . Continuous cardiac telemetry. Will continue pts. Xarelto, digoxin, statin, and HTN medications. Consult cardiology as needed. Qualifiers: Chest pain type: other chest pain Qualified Code(s): R07.89 - Other chest pain; R07.8 - Other chest pain (6) Chronic systolic CHF (congestive heart failure) Current Visit: Yes Status: Chronic Assessment and plan: Hx of chronic systolic CHF. Currently stable. No pedal edema on exam. Current sx most likely COPD exacerbation. Echocardiogram in July showed LVEF of 45%. Continuous cardiac telemetry. Continue pts. PO lasix daily. Monitor I&O and daily weight. 1.5L daily fluid restriction. will monitor (7) DVT prophylaxis Current Visit: Yes Status: Acute Assessment and plan: Continue pts. Xarelto for DVT prophylaxis. (8) Acute bronchitis Current Visit: Yes Status: Acute Assessment and plan: Acute bronchitis superimposed on acute exacerbation of COPD. DuoNebs Q4hr scheduled. Mucinex for cough. IVPB levaquin 750 mg daily for infection coverage. Respiratory infection panel ordered. Will adjust abx coverage based on respiratory infection panel results if warranted. Qualifiers: Bronchitis organism: unspecified organism Qualified Code(s): J20.9 - Acute bronchitis, unspecified (9) Mass, brain Current Visit: Yes Status: Resolved Assessment and plan: Hx of brain tumor w/resection surgery performed in August 2017. Continue pts. Keppra and monitor pt. closely for neurological changes. seizure precations- last seizure yesterday (10) HLD (hyperlipidemia) Current Visit: Yes Status: Chronic Assessment and plan: Hx of chronic HLD. Lipid panel in a.m. labs. Continue pts. Lovastatin. Qualifiers: Hyperlipidemia type: pure hypercholesterolemia Qualified Code(s): E78.00 - Pure hypercholesterolemia, unspecified; E78.0 - Pure hypercholesterolemia (11) HTN (hypertension) Current Visit: Yes Status: Chronic Assessment and plan: Hx of chronic HTN. Monitor pt. and VS. Continue pts. Cozaar, hydralazine, Coreg. controlled cont to monitor Qualifiers: Hypertension type: essential hypertension Qualified Code(s): I10 - Essential (primary) hypertension (12) Rheumatoid arthritis Current Visit: Yes Status: Chronic Assessment and plan: Hx of chronic RA. Continue pts. Imuran. Qualifiers: Rheumatoid arthritis location: unspecified site Rheumatoid factor presence : unspecified presence Qualified Code(s): M06.9 - Rheumatoid arthritis, unspecified - Time Spent With Patient Total time spent is greater than 50% in coordination of care (as documented) at patient's floor/unit and/or counseling patient: - Subjective Interval history: Patient is new to me, I have reviewed records.She does have some wheezing, cough with clear sputum production. No fever or chills - Constitutional Vitals: Temp Pulse Resp BP Pulse Ox 97.8 F 65 17 149/63 94 10/12/17 10:37 10/12/17 10:37 10/12/17 10:37 10/12/17 10:37 10/12/17 10:37 General appearance: Present: cooperative, mild distress (Respiratory), A&O X 3, pleasant, obese, answers questions appropriately - Head Head exam: Present: atraumatic, normocephalic - Eye Eye exam: Present: PERRL, conjuntiva pink, sclera anicteric - Neck Neck exam general surgery: Present: supple, trachea midline. Absent: lymphadenopathy - Respiratory Respiratory exam: Present: wheezes. Absent: accessory muscle use, rales, rhonchi - Cardiovascular Cardiovascular exam: Present: RRR, +S1, +S2. Absent: diastolic murmur, gallop, rubs, systolic murmur - GI/Abdominal GI/Abdominal exam: Present: normal bowel sounds, soft, no peritoneal signs. Absent: distended, tenderness - Extremities Exam Extremities exam: Present: warm, radial pulses palpable and symmetrical. Absent : calf tenderness, cyanotic, pedal edema - Neurological Exam Neurological exam: Present: CN II-XII intact, oriented X3, no focal deficits. Absent: pronater drift, facial droop, speech deficit - Skin Skin exam: Present: dry, intact Internal Medicine: Result - Labs CBC & Chem 7: 10/12/17 01:26 10/12/17 01:26 Labs: Short CBC 10/12/17 Range/Units 01:26 WBC 8.8 (4.3-11.1) K/mcL Hgb 10.8 L (11.5-15.4) g/dL Hct 35.3 (35.3-44.9) % Plt Count 243 (140-400) K/mcL Neutrophils # 8.2 (1.6-8.9) K/mcL BMP 10/12/17 01:26 Sodium 138 Potassium 4.0 Chloride 95 L Carbon Dioxide 32 H BUN 22 Creatinine 0.88 Glucose 330 H Calcium 8.9 Liver Function 10/12/17 Range/Units 01:26 Total Bilirubin 0.3 (0.3-1.0) mg/dL AST 9 L (13-39) Units/L ALT 11 (7-52) Units/L Alkaline Phosphatase 54 (34-104) Units/L Albumin 3.3 L (3.5-5.7) g/dL - ABG Interpretation ABG results: ABG ABG pH 7.42 pH Units (7.32-7.45) 10/11/17 20:36 ABG pCO2 56 mmHg (35-45) H 10/11/17 20:36 ABG pO2 90 mmHg (85-104) 10/11/17 20:36 ABG O2 Saturation 97 % (95-98) 10/11/17 20:36 PT/INR, D-dimer PT 12.9 Seconds (9.4-12.1) H 10/12/17 01:26 Consult Discharge Plan - Plan Referrals: Cholo Leslie MD [Primary Care Provider] -
[2017-10-12] MEDS: Ipratropium/Albuterol Neb 3 ML IH SCH ×4 (11:53→23:29)
[2017-10-12] MEDS ORDERED: MethylPREDNISolone 40 MG/ML VIAL IVP SCH (16:00)
[2017-10-12] MEDS: Furosemide 20 MG TABLET PO SCH (16:13)
[2017-10-12] MEDS: Gabapentin 300 MG CAPSULE PO SCH (21:22)
[2017-10-12] MEDS: *HR* HYDROcodone/Acet 5/325 mg TABLET PO PRN (21:22)
[2017-10-13] MEDS: Ipratropium/Albuterol Neb 3 ML IH SCH ×6 (03:29→23:09)
[2017-10-13 03:31] LABS: Basophils % 0.1 %; Hematocrit 32.3 % (35.3-44.9); Hemoglobin 9.9 g/dL (11.5-15.4); Immature Granulocytes % 2.5 % (0-4); Lymphocytes # 0.3 K/mcL (0.6-4.6); Lymphocytes % 2.1 %; Mean Corpuscular HGB Conc 30.7 g/dL (31.6-35.5); Mean Corpuscular Hemoglobin 26.8 pg (28.0-33.3); Mean Corpuscular Volume 87.5 fL (83.0-100.0); Mean Platelet Volume 10.3 fL (9.4-12.4); Monocytes # 0.3 K/mcL (0.0-1.3); Monocytes % 2.3 %; Neutrophils # 12.2 K/mcL (1.6-8.9); Platelet Count 228 K/mcL (140-400); Red Blood Count 3.69 M/mcL (3.82-4.97); Red Cell Distribution Width 14.5 % (11.5-14.5)
[2017-10-13 03:51] LABS: Alanine Aminotransferase 8 Units/L (7-52); Albumin 3.3 g/dL (3.5-5.7); Albumin/Globulin Ratio 1.4 (1.1-2.2); Alkaline Phosphatase 58 Units/L (34-104); Aspartate Amino Transferase 9 Units/L (13-39); BUN/Creatinine Ratio 25 (6-26); Bilirubin,Total 0.2 mg/dL (0.3-1.0); Blood Urea Nitrogen 20 mg/dL (8-23); Calcium 8.9 mg/dL (8.6-10.3); Carbon Dioxide 33 mEq/L (23-29); Chloride 96 mEq/L (98-107); Globulin 2.3 g/dL (2.4-3.5); Glucose 404 mg/dL (70-105); Osmolality,Calculated 302 (280-300); Potassium 4.1 mEq/L (3.5-5.1); Sodium 136 mEq/L (136-145); Total Protein 5.6 g/dL (6.4-8.9); eGFR For African Americans > 60 (> 60); eGFR For Non-African Americans > 60 (> 60)
[2017-10-13] MEDS ORDERED: Dextrose Gel 15 GM/37.5 ML TUBE PO PRN ×2 (05:38)
[2017-10-13] MEDS ORDERED: *HR* Dextrose 50 % in Water (Syg) 50 ML SYRINGE IVP PRN (05:38)
[2017-10-13] MEDS ORDERED: D5% in Water 1,000 ML IVC PRN (05:38)
--- NOTE | 2017-10-13 06:59 | Electrocardiograph Report ---
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
[2017-10-13] MEDS: methylPREDNISolone 125 MG/2 ML VIAL IVP SCH ×4 (08:15→22:54)
[2017-10-13] MEDS: Levofloxacin 750 MG/150 ML 750 MG/150 ML BAG IVPB SCH (08:15)
[2017-10-13] MEDS: hydrALAZINE 25 MG TABLET PO SCH ×2 (08:16→21:08)
[2017-10-13] MEDS: Furosemide 40 MG TABLET PO SCH (08:16)
[2017-10-13] MEDS: *HR* Digoxin 0.125 MG TABLET PO SCH (08:18)
[2017-10-13] MEDS: Insulin LISPRO 300 UNITS/3 ML VIAL SQ SCH ×3 (08:22→16:47)
[2017-10-13] MEDS: levETIRAcetam 250 MG TABLET PO SCH ×2 (08:22→21:12)
--- NOTE | 2017-10-13 11:28 | Internal Med Progress Note ---
Date of Encounter: 10/13/17 Time of Encounter: 11:28 - Assessment and plan (1) Acute exacerbation of chronic obstructive airways disease Current Visit: Yes Status: Acute Assessment and plan: Continue to have wheezing. Continue with DuoNeb's Solu-Medrol aggressive pulmonary toileting. Respiratory panel negative continue with Levaquin (2) A-fib Current Visit: Yes Status: Chronic Assessment and plan: Hx of chronic Afib. AICD/Pacemaker in place. Rate controlled Continuous cardiac telemetry. Echocardiogram in July 2017 showed LVEF of 45%. Continue patient's digoxin. Qualifiers: Atrial fibrillation type: chronic Qualified Code(s): I48.2 - Chronic atrial fibrillation (3) Blindness Current Visit: Yes Status: Chronic Assessment and plan: Hx of chronic blindness. Falls/safety precautions, up with assist, bed rest w/ bathroom privileges w/assist only. (4) Anemia Current Visit: Yes Status: Chronic Assessment and plan: Hx of chronic anemia. Hgb 11.1 and Hct 36.2 on admission which is improved from last admission. Hgb around baseline no active bleeding Monitor H/H in f/u labs. Monitor pt. for signs of bleeding. Qualifiers: Anemia type: unspecified type Qualified Code(s): D64.9 - Anemia, unspecified (5) Chest pain Current Visit: Yes Status: Acute Assessment and plan: Acute chest pain that pt. describes as left-sided w/radiation to left arm on presentation. Reports worsening w/inspiration/cough. Likely d/t current COPD exacerbation. No chest pain at this time Hx of chronic Afib. Echocardiogram in July 2017 showed LVEF of 45%. Trop have been negative . Continuous cardiac telemetry. Will continue pts. Xarelto, digoxin, statin, and HTN medications. Consult cardiology as needed. Qualifiers: Chest pain type: other chest pain Qualified Code(s): R07.89 - Other chest pain; R07.8 - Other chest pain (6) Chronic systolic CHF (congestive heart failure) Current Visit: Yes Status: Chronic Assessment and plan: Hx of chronic systolic CHF. Currently stable. No pedal edema on exam. Current sx most likely COPD exacerbation. Echocardiogram in July showed LVEF of 45%. Continuous cardiac telemetry. Continue pts. PO lasix daily. Monitor I&O and daily weight. 1.5L daily fluid restriction. will monitor (7) Acute bronchitis Current Visit: Yes Status: Acute Assessment and plan: Acute bronchitis superimposed on acute exacerbation of COPD. DuoNebs Q4hr scheduled. Mucinex for cough. IVPB levaquin 750 mg daily for infection coverage. Respiratory infection panel . Negative Qualifiers: Bronchitis organism: unspecified organism Qualified Code(s): J20.9 - Acute bronchitis, unspecified (8) Mass, brain Current Visit: Yes Status: Resolved Assessment and plan: Hx of brain tumor w/resection surgery performed in August 2017. Continue pts. Keppra and monitor pt. closely for neurological changes. seizure precations- no signs or symptoms of seizure activity at this time (9) HLD (hyperlipidemia) Current Visit: Yes Status: Chronic Assessment and plan: Hx of chronic HLD. Lipid panel in a.m. labs. Continue pts. Lovastatin. Qualifiers: Hyperlipidemia type: pure hypercholesterolemia Qualified Code(s): E78.00 - Pure hypercholesterolemia, unspecified; E78.0 - Pure hypercholesterolemia (10) HTN (hypertension) Current Visit: Yes Status: Chronic Assessment and plan: Hx of chronic HTN. Monitor pt. and VS. Continue pts. Cozaar, hydralazine, Coreg. controlled cont to monitor Qualifiers: Hypertension type: essential hypertension Qualified Code(s): I10 - Essential (primary) hypertension (11) Rheumatoid arthritis Current Visit: Yes Status: Chronic Assessment and plan: Hx of chronic RA. Continue pts. Imuran. Qualifiers: Rheumatoid arthritis location: unspecified site Rheumatoid factor presence : unspecified presence Qualified Code(s): M06.9 - Rheumatoid arthritis, unspecified (12) DVT prophylaxis Current Visit: Yes Status: Acute Assessment and plan: Continue pts. Xarelto for DVT prophylaxis. - Time Spent With Patient Total time spent is greater than 50% in coordination of care (as documented) at patient's floor/unit and/or counseling patient: - Subjective Interval history: Patient denies any chest pain or shortness of breath. She has been using flutter valve as well as incentive spirometry. Denies any sputum production at this time. - Constitutional Vitals: Temp Pulse Resp BP Pulse Ox 97.9 F 55 15 150/63 96 10/13/17 11:04 10/13/17 11:04 10/13/17 11:04 10/13/17 11:04 04/14/18 11:04 General appearance: Present: cooperative, mild distress (Respiratory), A&O X 3, pleasant, obese, answers questions appropriately - Head Head exam: Present: atraumatic, normocephalic - Eye Eye exam: Present: PERRL, conjuntiva pink, sclera anicteric Pupils: Present: PERRL - Neck Neck exam general surgery: Present: supple, trachea midline. Absent: lymphadenopathy - Respiratory Respiratory exam: Present: wheezes. Absent: accessory muscle use, rales, rhonchi - Cardiovascular Cardiovascular exam: Present: RRR, +S1, +S2. Absent: diastolic murmur, gallop, rubs, systolic murmur - GI/Abdominal GI/Abdominal exam: Present: normal bowel sounds, soft, no peritoneal signs. Absent: distended, tenderness - Extremities Exam Extremities exam: Present: warm, radial pulses palpable and symmetrical. Absent : calf tenderness, cyanotic, pedal edema - Neurological Exam Neurological exam: Present: CN II-XII intact, oriented X3, no focal deficits. Absent: pronater drift, facial droop, speech deficit - Skin Skin exam: Present: dry, intact Internal Medicine: Result - Labs CBC & Chem 7: 10/13/17 03:20 10/13/17 03:20 Labs: Short CBC 10/13/17 Range/Units 03:20 WBC 13.1 H (4.3-11.1) K/mcL Hgb 9.9 L (11.5-15.4) g/dL Hct 32.3 L (35.3-44.9) % Plt Count 228 (140-400) K/mcL Neutrophils # 12.2 H (1.6-8.9) K/mcL BMP 10/13/17 03:20 Sodium 136 Potassium 4.1 Chloride 96 L Carbon Dioxide 33 H BUN 20 Creatinine 0.79 Glucose 404 H Calcium 8.9 Liver Function 10/13/17 Range/Units 03:20 Total Bilirubin 0.2 L (0.3-1.0) mg/dL AST 9 L (13-39) Units/L ALT 8 (7-52) Units/L Alkaline Phosphatase 58 (34-104) Units/L Albumin 3.3 L (3.5-5.7) g/dL - ABG Interpretation ABG results: ABG ABG pH 7.42 pH Units (7.32-7.45) 10/11/17 20:36 ABG pCO2 56 mmHg (35-45) H 10/11/17 20:36 ABG pO2 90 mmHg (85-104) 10/11/17 20:36 ABG O2 Saturation 97 % (95-98) 10/11/17 20:36 PT/INR, D-dimer PT 12.9 Seconds (9.4-12.1) H 10/12/17 01:26 Consult Discharge Plan - Plan Referrals: Cholo Leslie MD [Primary Care Provider] -
[2017-10-13] MEDS: *HR* HYDROcodone/Acet 5/325 mg TABLET PO PRN ×2 (16:45→22:53)
[2017-10-13] MEDS: *HR* Rivaroxaban 15 MG TABLET PO SCH (16:46)
[2017-10-13] MEDS: Furosemide 20 MG TABLET PO SCH (16:46)
[2017-10-13] MEDS ORDERED: Insulin LISPRO 300 UNITS/3 ML VIAL SQ SCH (21:00)
[2017-10-13] MEDS: Gabapentin 300 MG CAPSULE PO SCH (21:07)
[2017-10-14] MEDS: Ipratropium/Albuterol Neb 3 ML IH SCH ×6 (03:31→23:11)
[2017-10-14] MEDS: *HR* HYDROcodone/Acet 5/325 mg TABLET PO PRN ×2 (05:58→14:13)
[2017-10-14 06:02] LABS: Basophils % 0.1 %; Hematocrit 34.6 % (35.3-44.9); Hemoglobin 10.6 g/dL (11.5-15.4); Immature Granulocytes % 5.1 % (0-4); Lymphocytes # 0.3 K/mcL (0.6-4.6); Lymphocytes % 2.2 %; Mean Corpuscular HGB Conc 30.6 g/dL (31.6-35.5); Mean Corpuscular Hemoglobin 27.2 pg (28.0-33.3); Mean Corpuscular Volume 88.9 fL (83.0-100.0); Mean Platelet Volume 10.5 fL (9.4-12.4); Monocytes # 0.2 K/mcL (0.0-1.3); Monocytes % 1.3 %; Platelet Count 240 K/mcL (140-400); Red Blood Count 3.89 M/mcL (3.82-4.97); Red Cell Distribution Width 14.8 % (11.5-14.5); Segmented Neutrophils % 91.3 %
[2017-10-14 06:03] LABS: Neutrophils # 12.1 K/mcL (1.6-8.9)
[2017-10-14 06:22] LABS: Platelet Estimate Normal (Normal)
[2017-10-14 06:25] LABS: Alanine Aminotransferase 10 Units/L (7-52); Albumin 3.4 g/dL (3.5-5.7); Albumin/Globulin Ratio 1.5 (1.1-2.2); Alkaline Phosphatase 56 Units/L (34-104); Aspartate Amino Transferase 10 Units/L (13-39); BUN/Creatinine Ratio 29 (6-26); Bilirubin,Total 0.2 mg/dL (0.3-1.0); Blood Urea Nitrogen 22 mg/dL (8-23); Carbon Dioxide 38 mEq/L (23-29); Chloride 96 mEq/L (98-107); Globulin 2.2 g/dL (2.4-3.5); Glucose 357 mg/dL (70-105); Osmolality,Calculated 312 (280-300); Potassium 3.7 mEq/L (3.5-5.1); Sodium 142 mEq/L (136-145); Total Protein 5.6 g/dL (6.4-8.9); eGFR For African Americans > 60 (> 60); eGFR For Non-African Americans > 60 (> 60)
[2017-10-14] MEDS: hydrALAZINE 25 MG TABLET PO SCH ×2 (08:25→21:28)
[2017-10-14] MEDS: levETIRAcetam 250 MG TABLET PO SCH ×2 (08:25→21:01)
[2017-10-14] MEDS: *HR* Digoxin 0.125 MG TABLET PO SCH (08:25)
[2017-10-14] MEDS: Insulin LISPRO 300 UNITS/3 ML VIAL SQ SCH ×5 (08:26→21:26)
[2017-10-14] MEDS: Furosemide 40 MG TABLET PO SCH (08:26)
[2017-10-14] MEDS: methylPREDNISolone 125 MG/2 ML VIAL IVP SCH ×2 (08:26→17:01)
--- NOTE | 2017-10-14 10:46 | Internal Med Progress Note ---
Date of Encounter: 10/14/17 Time of Encounter: 10:46 - Assessment and plan (1) Acute exacerbation of chronic obstructive airways disease Current Visit: Yes Status: Acute Assessment and plan: Lung sounds have improved-she does not sound as wheezy as she did yesterday. Continue with DuoNeb's Solu-Medrol aggressive pulmonary toileting. Respiratory panel negative continue with Levaquin (2) A-fib Current Visit: Yes Status: Chronic Assessment and plan: Hx of chronic Afib. AICD/Pacemaker in place. Rate controlled Continuous cardiac telemetry. Echocardiogram in July 2017 showed LVEF of 45%. Continue patient's digoxin. Qualifiers: Atrial fibrillation type: chronic Qualified Code(s): I48.2 - Chronic atrial fibrillation (3) Blindness Current Visit: Yes Status: Chronic Assessment and plan: Hx of chronic blindness. Falls/safety precautions, up with assist, bed rest w/ bathroom privileges w/assist only. Fall precautions (4) Anemia Current Visit: Yes Status: Chronic Assessment and plan: Hx of chronic anemia. Hgb 11.1 and Hct 36.2 on admission which is improved from last admission. Hgb around baseline no active bleeding Monitor H/H in f/u labs. Monitor pt. for signs of bleeding. Qualifiers: Anemia type: unspecified type Qualified Code(s): D64.9 - Anemia, unspecified (5) Chest pain Current Visit: Yes Status: Acute Assessment and plan: Acute chest pain that pt. describes as left-sided w/radiation to left arm on presentation. Reports worsening w/inspiration/cough. Likely d/t current COPD exacerbation. No chest pain at this time Hx of chronic Afib. Echocardiogram in July 2017 showed LVEF of 45%. Trop have been negative . Continuous cardiac telemetry. Will continue pts. Xarelto, digoxin, statin, and HTN medications. Consult cardiology as needed. Continue to monitor Qualifiers: Chest pain type: other chest pain Qualified Code(s): R07.89 - Other chest pain; R07.8 - Other chest pain (6) Chronic systolic CHF (congestive heart failure) Current Visit: Yes Status: Chronic Assessment and plan: Hx of chronic systolic CHF. Currently stable. No pedal edema on exam. Current sx most likely COPD exacerbation. Echocardiogram in July showed LVEF of 45%. Continuous cardiac telemetry. Continue pts. PO lasix daily. Monitor I&O and daily weight. 1.5L daily fluid restriction. Appears to be stable at this time (7) Acute bronchitis Current Visit: Yes Status: Acute Assessment and plan: Acute bronchitis superimposed on acute exacerbation of COPD. DuoNebs Q4hr scheduled. Mucinex for cough. IVPB levaquin 750 mg daily for infection coverage. Respiratory infection panel . Negative Qualifiers: Bronchitis organism: unspecified organism Qualified Code(s): J20.9 - Acute bronchitis, unspecified (8) Mass, brain Current Visit: Yes Status: Resolved Assessment and plan: Hx of brain tumor w/resection surgery performed in August 2017. Continue pts. Keppra and monitor pt. closely for neurological changes. seizure precations- no signs or symptoms of seizure activity at this time we will continue to monitor (9) HLD (hyperlipidemia) Current Visit: Yes Status: Chronic Assessment and plan: Hx of chronic HLD. Lipid panel in a.m. labs. Continue pts. Lovastatin. Qualifiers: Hyperlipidemia type: pure hypercholesterolemia Qualified Code(s): E78.00 - Pure hypercholesterolemia, unspecified; E78.0 - Pure hypercholesterolemia (10) HTN (hypertension) Current Visit: Yes Status: Chronic Assessment and plan: Hx of chronic HTN. Monitor pt. and VS. Continue pts. Cozaar, hydralazine, Coreg. controlled cont to monitor Qualifiers: Hypertension type: essential hypertension Qualified Code(s): I10 - Essential (primary) hypertension (11) Rheumatoid arthritis Current Visit: Yes Status: Chronic Assessment and plan: Hx of chronic RA. Continue pts. Imuran. Qualifiers: Rheumatoid arthritis location: unspecified site Rheumatoid factor presence : unspecified presence Qualified Code(s): M06.9 - Rheumatoid arthritis, unspecified (12) DVT prophylaxis Current Visit: Yes Status: Acute Assessment and plan: Continue pts. Xarelto for DVT prophylaxis. - Time Spent With Patient Total time spent is greater than 50% in coordination of care (as documented) at patient's floor/unit and/or counseling patient: - Subjective Interval history: Patient seen and examined at bedside. Patient is sitting up in chair she feels that her respiratory state has improved. She does not sound as wheezy as she did yesterday. Continues to use flutter valve. She does complain of some back pain we will add lidocaine patch continue with Tylenol and [place] as needed maintain need to add a muscle relaxer. - Constitutional Vitals: Temp Pulse Resp BP Pulse Ox 98.2 F 73 15 111/77 96 10/14/17 07:36 10/14/17 07:36 10/14/17 07:36 10/14/17 07:36 10/14/17 07:36 General appearance: Present: cooperative, mild distress (Respiratory), A&O X 3, pleasant, obese, answers questions appropriately - Head Head exam: Present: atraumatic, normocephalic - Eye Eye exam: Present: PERRL, conjuntiva pink, sclera anicteric Pupils: Present: PERRL - Neck Neck exam general surgery: Present: supple, trachea midline. Absent: lymphadenopathy - Respiratory Respiratory exam: Present: wheezes. Absent: accessory muscle use, rales, rhonchi - Cardiovascular Cardiovascular exam: Present: RRR, +S1, +S2. Absent: diastolic murmur, gallop, rubs, systolic murmur - GI/Abdominal GI/Abdominal exam: Present: normal bowel sounds, soft, no peritoneal signs. Absent: distended, tenderness - Extremities Exam Extremities exam: Present: warm, radial pulses palpable and symmetrical. Absent : calf tenderness, cyanotic, pedal edema - Neurological Exam Neurological exam: Present: CN II-XII intact, oriented X3, no focal deficits. Absent: pronater drift, facial droop, speech deficit - Skin Skin exam: Present: dry, intact Internal Medicine: Result - Labs CBC & Chem 7: 10/14/17 04:00 10/14/17 04:00 Labs: Short CBC 10/14/17 Range/Units 04:00 WBC 13.3 H (4.3-11.1) K/mcL Hgb 10.6 L (11.5-15.4) g/dL Hct 34.6 L (35.3-44.9) % Plt Count 240 (140-400) K/mcL Neutrophils # 12.1 H (1.6-8.9) K/mcL BMP 10/14/17 04:00 Sodium 142 Potassium 3.7 Chloride 96 L Carbon Dioxide 38 H BUN 22 Creatinine 0.75 Glucose 357 H Calcium 9.0 Liver Function 10/14/17 Range/Units 04:00 Total Bilirubin 0.2 L (0.3-1.0) mg/dL AST 10 L (13-39) Units/L ALT 10 (7-52) Units/L Alkaline Phosphatase 56 (34-104) Units/L Albumin 3.4 L (3.5-5.7) g/dL - ABG Interpretation ABG results: ABG ABG pH 7.42 pH Units (7.32-7.45) 10/11/17 20:36 ABG pCO2 56 mmHg (35-45) H 10/11/17 20:36 ABG pO2 90 mmHg (85-104) 10/11/17 20:36 ABG O2 Saturation 97 % (95-98) 10/11/17 20:36 PT/INR, D-dimer PT 12.9 Seconds (9.4-12.1) H 10/12/17 01:26 Consult Discharge Plan - Plan Referrals: Cholo Leslie MD [Primary Care Provider] -
[2017-10-14] MEDS: Furosemide 20 MG TABLET PO SCH (17:01)
[2017-10-14] MEDS: *HR* Rivaroxaban 15 MG TABLET PO SCH (17:01)
[2017-10-14] MEDS: Gabapentin 300 MG CAPSULE PO SCH (21:01)
[2017-10-15] MEDS: methylPREDNISolone 125 MG/2 ML VIAL IVP SCH ×3 (00:44→14:33)
[2017-10-15] MEDS: Ipratropium/Albuterol Neb 3 ML IH SCH ×6 (03:15→23:30)
[2017-10-15 06:07] LABS: Basophils % 0.2 %; Hematocrit 33.6 % (35.3-44.9); Hemoglobin 10.2 g/dL (11.5-15.4); Immature Granulocytes % 6.3 % (0-4); Lymphocytes # 0.2 K/mcL (0.6-4.6); Lymphocytes % 2.5 %; Mean Corpuscular HGB Conc 30.4 g/dL (31.6-35.5); Mean Corpuscular Hemoglobin 26.7 pg (28.0-33.3); Mean Platelet Volume 10.3 fL (9.4-12.4); Monocytes # 0.2 K/mcL (0.0-1.3); Monocytes % 2.4 %; Neutrophils # 7.7 K/mcL (1.6-8.9); Nucleated Red Blood Cells 0.2 /100 WBC (0); Platelet Count 215 K/mcL (140-400); Red Blood Count 3.82 M/mcL (3.82-4.97); Red Cell Distribution Width 14.8 % (11.5-14.5); Segmented Neutrophils % 88.6 %
[2017-10-15 06:41] LABS: Alanine Aminotransferase 10 Units/L (7-52); Albumin 3.1 g/dL (3.5-5.7); Albumin/Globulin Ratio 1.3 (1.1-2.2); Alkaline Phosphatase 51 Units/L (34-104); Aspartate Amino Transferase 9 Units/L (13-39); BUN/Creatinine Ratio 33 (6-26); Bilirubin,Total 0.3 mg/dL (0.3-1.0); Blood Urea Nitrogen 22 mg/dL (8-23); Calcium 6.5 mg/dL (8.6-10.3); Carbon Dioxide 39 mEq/L (23-29); Chloride 99 mEq/L (98-107); Globulin 2.3 g/dL (2.4-3.5); Glucose 309 mg/dL (70-105); Osmolality,Calculated 309 (280-300); Potassium 5.4 mEq/L (3.5-5.1); Sodium 142 mEq/L (136-145); Total Protein 5.4 g/dL (6.4-8.9); eGFR For African Americans > 60 (> 60); eGFR For Non-African Americans > 60 (> 60)
[2017-10-15 06:44] LABS: Platelet Estimate Normal (Normal)
[2017-10-15] MEDS: Levofloxacin 750 MG/150 ML 750 MG/150 ML BAG IVPB SCH (09:17)
[2017-10-15] MEDS: Insulin LISPRO 300 UNITS/3 ML VIAL SQ SCH ×4 (09:18→21:35)
[2017-10-15] MEDS: *HR* HYDROcodone/Acet 5/325 mg TABLET PO PRN ×2 (09:26→21:40)
[2017-10-15] MEDS: hydrALAZINE 25 MG TABLET PO SCH ×2 (09:26→21:34)
[2017-10-15] MEDS: Furosemide 40 MG TABLET PO SCH (09:27)
[2017-10-15] MEDS: levETIRAcetam 250 MG TABLET PO SCH ×2 (09:28→21:35)
[2017-10-15] MEDS: *HR* Digoxin 0.125 MG TABLET PO SCH (09:28)
[2017-10-15] MEDS: Acetaminophen 325 MG TABLET PO PRN (14:33)
[2017-10-15] MEDS: *HR* Rivaroxaban 10 MG TABLET PO SCH (15:45)
[2017-10-15] MEDS: Furosemide 20 MG TABLET PO SCH (16:09)
--- NOTE | 2017-10-15 19:35 | Internal Med Progress Note ---
Date of Encounter: 10/15/17 Time of Encounter: 09:00 - Assessment and plan (1) Acute exacerbation of chronic obstructive airways disease Current Visit: Yes Status: Acute Assessment and plan: Lung sounds have improved-she does not sound as wheezy as she did yesterday. Continue with DuoNeb's Solu-Medrol aggressive pulmonary toileting. Respiratory panel negative continue with Levaquin (2) A-fib Current Visit: Yes Status: Chronic Assessment and plan: Hx of chronic Afib. AICD/Pacemaker in place. Rate controlled Continuous cardiac telemetry. Echocardiogram in July 2017 showed LVEF of 45%. Continue patient's digoxin. Qualifiers: Atrial fibrillation type: chronic Qualified Code(s): I48.2 - Chronic atrial fibrillation (3) Blindness Current Visit: Yes Status: Chronic Assessment and plan: Hx of chronic blindness. Falls/safety precautions, up with assist, bed rest w/ bathroom privileges w/assist only. Fall precautions (4) Anemia Current Visit: Yes Status: Chronic Assessment and plan: Hx of chronic anemia. Hgb 11.1 and Hct 36.2 on admission which is improved from last admission. Hgb stable around baseline no active bleeding Monitor H/H in f/u labs. Monitor pt. for signs of bleeding. Qualifiers: Anemia type: unspecified type Qualified Code(s): D64.9 - Anemia, unspecified (5) Chest pain Current Visit: Yes Status: Acute Assessment and plan: Acute chest pain that pt. describes as left-sided w/radiation to left arm on presentation. Reports worsening w/inspiration/cough. Likely d/t current COPD exacerbation. No chest pain at this time Hx of chronic Afib. Echocardiogram in July 2017 showed LVEF of 45%. Trop have been negative . Continuous cardiac telemetry. Will continue pts. Xarelto, digoxin, statin, and HTN medications. Consult cardiology as needed. Continue to monitor Qualifiers: Chest pain type: other chest pain Qualified Code(s): R07.89 - Other chest pain; R07.8 - Other chest pain (6) Chronic systolic CHF (congestive heart failure) Current Visit: Yes Status: Chronic Assessment and plan: Hx of chronic systolic CHF. Currently stable. No pedal edema on exam. Current sx most likely COPD exacerbation. Echocardiogram in July showed LVEF of 45%. Continuous cardiac telemetry. Continue pts. PO lasix daily. Monitor I&O and daily weight. 1.5L daily fluid restriction. Appears to be stable at this time (7) Acute bronchitis Current Visit: Yes Status: Acute Assessment and plan: Acute bronchitis superimposed on acute exacerbation of COPD. DuoNebs Q4hr scheduled. Mucinex for cough. IVPB levaquin 750 mg daily for infection coverage. Respiratory infection panel . Negative Qualifiers: Bronchitis organism: unspecified organism Qualified Code(s): J20.9 - Acute bronchitis, unspecified (8) Mass, brain Current Visit: Yes Status: Resolved Assessment and plan: Hx of brain tumor w/resection surgery performed in August 2017. Continue pts. Keppra and monitor pt. closely for neurological changes. seizure precations- no signs or symptoms of seizure activity at this time we will continue to monitor (9) HLD (hyperlipidemia) Current Visit: Yes Status: Chronic Assessment and plan: Hx of chronic HLD. Lipid panel in a.m. labs. Continue pts. Lovastatin. Qualifiers: Hyperlipidemia type: pure hypercholesterolemia Qualified Code(s): E78.00 - Pure hypercholesterolemia, unspecified; E78.0 - Pure hypercholesterolemia (10) HTN (hypertension) Current Visit: Yes Status: Chronic Assessment and plan: Hx of chronic HTN. Monitor pt. and VS. Continue pts. Cozaar, hydralazine, Coreg. controlled cont to monitor Qualifiers: Hypertension type: essential hypertension Qualified Code(s): I10 - Essential (primary) hypertension (11) Rheumatoid arthritis Current Visit: Yes Status: Chronic Assessment and plan: Hx of chronic RA. Continue pts. Imuran. Qualifiers: Rheumatoid arthritis location: unspecified site Rheumatoid factor presence : unspecified presence Qualified Code(s): M06.9 - Rheumatoid arthritis, unspecified (12) Hyperkalemia Current Visit: Yes Status: Acute Assessment and plan: Patient is 5.4 this morning. We will hold supplemental potassium. Continue with Lasix. (13) DVT prophylaxis Current Visit: Yes Status: Acute Assessment and plan: Continue pts. Xarelto for DVT prophylaxis. - Time Spent With Patient Total time spent is greater than 50% in coordination of care (as documented) at patient's floor/unit and/or counseling patient: - Subjective Interval history: Patient seen and examined at bedside earlier this morning. Does not appear to be in any respiratory distress continues to have wheezing. No cough or fever at this time oxygen saturations are stable-patient states she feels better - Constitutional Vitals: Temp Pulse Resp BP Pulse Ox 98.0 F 75 17 132/69 94 10/15/17 19:05 10/15/17 19:05 10/15/17 19:05 10/15/17 19:05 10/15/17 19:05 General appearance: Present: cooperative, mild distress (Respiratory), A&O X 3, pleasant, obese, answers questions appropriately - Head Head exam: Present: atraumatic, normocephalic - Eye Eye exam: Present: PERRL, conjuntiva pink, sclera anicteric Pupils: Present: PERRL - Neck Neck exam general surgery: Present: supple, trachea midline. Absent: lymphadenopathy - Respiratory Respiratory exam: Present: wheezes. Absent: accessory muscle use, rales, rhonchi - Cardiovascular Cardiovascular exam: Present: RRR, +S1, +S2. Absent: diastolic murmur, gallop, rubs, systolic murmur - GI/Abdominal GI/Abdominal exam: Present: normal bowel sounds, soft, no peritoneal signs. Absent: distended, tenderness - Extremities Exam Extremities exam: Present: warm, radial pulses palpable and symmetrical. Absent : calf tenderness, cyanotic, pedal edema - Neurological Exam Neurological exam: Present: CN II-XII intact, oriented X3, no focal deficits. Absent: pronater drift, facial droop, speech deficit - Skin Skin exam: Present: dry, intact Internal Medicine: Result - Labs CBC & Chem 7: 10/15/17 04:00 10/15/17 04:00 Labs: Short CBC 10/15/17 Range/Units 04:00 WBC 8.7 (4.3-11.1) K/mcL Hgb 10.2 L (11.5-15.4) g/dL Hct 33.6 L (35.3-44.9) % Plt Count 215 (140-400) K/mcL Neutrophils # 7.7 (1.6-8.9) K/mcL BMP 10/15/17 04:00 Sodium 142 Potassium 5.4 H D Chloride 99 Carbon Dioxide 39 H BUN 22 Creatinine 0.66 Glucose 309 H Calcium 6.5 L Liver Function 10/15/17 Range/Units 04:00 Total Bilirubin 0.3 (0.3-1.0) mg/dL AST 9 L (13-39) Units/L ALT 10 (7-52) Units/L Alkaline Phosphatase 51 (34-104) Units/L Albumin 3.1 L (3.5-5.7) g/dL - ABG Interpretation ABG results: ABG ABG pH 7.42 pH Units (7.32-7.45) 10/11/17 20:36 ABG pCO2 56 mmHg (35-45) H 10/11/17 20:36 ABG pO2 90 mmHg (85-104) 10/11/17 20:36 ABG O2 Saturation 97 % (95-98) 10/11/17 20:36 PT/INR, D-dimer PT 12.9 Seconds (9.4-12.1) H 10/12/17 01:26 Consult Discharge Plan - Plan Referrals: Cholo Leslie MD [Primary Care Provider] -
[2017-10-15] MEDS: Gabapentin 300 MG CAPSULE PO SCH (21:34)
[2017-10-15] MEDS: Melatonin 3 MG TABLET PO SCH (21:35)
[2017-10-16] MEDS: methylPREDNISolone 125 MG/2 ML VIAL IVP SCH ×3 (00:23→17:07)
[2017-10-16] MEDS: Ipratropium/Albuterol Neb 3 ML IH SCH ×5 (03:48→19:40)
[2017-10-16 06:18] LABS: Basophils % 0.3 %; Hematocrit 38.8 % (35.3-44.9); Hemoglobin 11.6 g/dL (11.5-15.4); Immature Granulocytes % 5.1 % (0-4); Lymphocytes # 0.3 K/mcL (0.6-4.6); Lymphocytes % 2.6 %; Mean Corpuscular HGB Conc 29.9 g/dL (31.6-35.5); Mean Corpuscular Hemoglobin 26.7 pg (28.0-33.3); Mean Corpuscular Volume 89.2 fL (83.0-100.0); Mean Platelet Volume 10.5 fL (9.4-12.4); Monocytes # 0.3 K/mcL (0.0-1.3); Monocytes % 2.1 %; Neutrophils # 10.5 K/mcL (1.6-8.9); Nucleated Red Blood Cells 0.2 /100 WBC (0); Platelet Count 270 K/mcL (140-400); Red Blood Count 4.35 M/mcL (3.82-4.97); Red Cell Distribution Width 14.9 % (11.5-14.5); Segmented Neutrophils % 89.9 %
[2017-10-16 06:35] LABS: Platelet Estimate Normal (Normal)
[2017-10-16 06:36] LABS: Anisocytosis 1+ (Not Present); Polychromasia 1+ (Not Present)
[2017-10-16 06:38] LABS: BUN/Creatinine Ratio 35 (6-26); Blood Urea Nitrogen 29 mg/dL (8-23); Calcium 9.2 mg/dL (8.6-10.3); Carbon Dioxide 38 mEq/L (23-29); Chloride 95 mEq/L (98-107); Glucose 294 mg/dL (70-105); Osmolality,Calculated 307 (280-300); Sodium 140 mEq/L (136-145); eGFR For African Americans > 60 (> 60); eGFR For Non-African Americans > 60 (> 60)
[2017-10-16] MEDS: *HR* HYDROcodone/Acet 5/325 mg TABLET PO PRN (06:41)
[2017-10-16] MEDS: *HR* Digoxin 0.125 MG TABLET PO SCH (08:19)
[2017-10-16] MEDS: Furosemide 40 MG TABLET PO SCH (08:19)
[2017-10-16] MEDS: levETIRAcetam 250 MG TABLET PO SCH ×2 (08:19→21:27)
[2017-10-16] MEDS: Insulin LISPRO 300 UNITS/3 ML VIAL SQ SCH ×4 (08:21→21:31)
[2017-10-16] MEDS: Levofloxacin 750 MG/150 ML 750 MG/150 ML BAG IVPB SCH (08:21)
[2017-10-16] MEDS: hydrALAZINE 25 MG TABLET PO SCH ×2 (08:23→21:27)
--- NOTE | 2017-10-16 09:01 | Internal Med Progress Note ---
Date of Encounter: 10/16/17 Time of Encounter: 08:59 - Assessment and plan (1) Acute exacerbation of chronic obstructive airways disease Current Visit: Yes Status: Acute Assessment and plan: Presented with worsening shortness of breath for 2 weeks prior to admission. Has known COPD, on oxygen at home. Symptomatic with SOB and wheezing. CXR without infiltrates/opacity. Resp PCR negative. Sx's improving with IV ATB, steroids and duobebs. (2) Chronic systolic CHF (congestive heart failure) Current Visit: Yes Status: Chronic Assessment and plan: per hx. 07/2017 TTE with 45%. Appears euvolemic. Continue home ARB, Lasix, BB. Monitor I&O and daily weight. 1.5L daily fluid restriction. Appears to be stable at this time (3) Chest pain Current Visit: Yes Status: Acute Assessment and plan: presented with chest pain with w/radiation to left arm. Reports worsening w/ inspiration/cough. Likely d/t current COPD exacerbation. No chest pain at this time. 07/2017 TTE with EF of 45%, hypokinetic wall motion abnormality. Serial troponins negative. Continuous cardiac telemetry. Cont Xarelto, digoxin, statin , and HTN medications. Consult cardiology as needed. Continue to monitor Qualifiers: Chest pain type: other chest pain Qualified Code(s): R07.89 - Other chest pain; R07.8 - Other chest pain (4) A-fib Current Visit: Yes Status: Chronic Assessment and plan: Hx of chronic Afib. AICD/Pacemaker in place. Rate controlled. Cont home BB, Xarelto, digoxin. Qualifiers: Atrial fibrillation type: chronic Qualified Code(s): I48.2 - Chronic atrial fibrillation (5) Blindness Current Visit: Yes Status: Chronic Assessment and plan: Hx of chronic blindness. Falls/safety precautions, up with assist, bed rest w/ bathroom privileges w/assist only (6) Anemia Current Visit: Yes Status: Chronic Assessment and plan: Hx of chronic anemia. Hgb 11.1 and Hct 36.2 on admission which is improved from last admission. Hgb stable around baseline no active bleeding. Monitor Qualifiers: Anemia type: unspecified type Qualified Code(s): D64.9 - Anemia, unspecified (7) Mass, brain Current Visit: Yes Status: Resolved Assessment and plan: Hx of brain tumor w/resection surgery performed in August 2017. Continue pts. Keppra and monitor pt. closely for neurological changes. seizure precations- no signs or symptoms of seizure activity at this time we will continue to monitor (8) HLD (hyperlipidemia) Current Visit: Yes Status: Chronic Assessment and plan: per hx. Cont home statin Qualifiers: Hyperlipidemia type: pure hypercholesterolemia Qualified Code(s): E78.00 - Pure hypercholesterolemia, unspecified; E78.0 - Pure hypercholesterolemia (9) HTN (hypertension) Current Visit: Yes Status: Chronic Assessment and plan: per hx. BP not well controlled. Increase home hydralazine. Monitor BP and titrate PRN Qualifiers: Hypertension type: essential hypertension Qualified Code(s): I10 - Essential (primary) hypertension (10) Rheumatoid arthritis Current Visit: Yes Status: Chronic Assessment and plan: Hx of chronic RA. Continue Imuran. Qualifiers: Rheumatoid arthritis location: unspecified site Rheumatoid factor presence : unspecified presence Qualified Code(s): M06.9 - Rheumatoid arthritis, unspecified (11) Hyperkalemia Current Visit: Yes Status: Acute Assessment and plan: K peaked at 5.4; home potassium supplementation stopped. Repeat potassium normalized. Intermittently monitor. (12) DVT prophylaxis Current Visit: Yes Status: Acute Assessment and plan: Xarelto - Time Spent With Patient Total time spent is greater than 50% in coordination of care (as documented) at patient's floor/unit and/or counseling patient: - Subjective Interval history: Seen and examined at bedside. Patient is new to me, information obtained from chart review and patient report. Says she feels a little better but is still having some shortness of breath, cough and wheezing. She does not think she will be able to go home today. Shortness of breath is better with rest and worse when she is up moving around. Denies chest pain. - Constitutional Vitals: Temp Pulse Resp BP Pulse Ox 97.6 F 60 16 165/74 93 10/16/17 06:37 10/16/17 06:37 10/16/17 07:30 10/16/17 06:37 10/16/17 07:30 General appearance: Present: cooperative, A&O X 3, pleasant, obese, answers questions appropriately - Head Head exam: Present: atraumatic, normocephalic - Eye Eye exam: Present: normal appearance (blind), PERRL, conjuntiva pink, sclera anicteric Pupils: Present: PERRL - Neck Neck exam general surgery: Present: supple, trachea midline. Absent: lymphadenopathy - Respiratory Respiratory exam: Present: CTAB, respiratory distress (Appears mildly dyspneic) , rhonchi, wheezes. Absent: accessory muscle use, rales - Cardiovascular Cardiovascular exam: Present: RRR, +S1, +S2. Absent: diastolic murmur, gallop, rubs, systolic murmur - GI/Abdominal GI/Abdominal exam: Present: normal bowel sounds, soft, no peritoneal signs. Absent: distended, tenderness - Extremities Exam Extremities exam: Present: warm, radial pulses palpable and symmetrical. Absent : calf tenderness, cyanotic, pedal edema - Neurological Exam Neurological exam: Present: CN II-XII intact, oriented X3, no focal deficits. Absent: pronater drift, facial droop, speech deficit - Skin Skin exam: Present: dry, intact Internal Medicine: Result - Labs CBC & Chem 7: 10/16/17 04:00 10/16/17 04:00 Labs: Short CBC 10/16/17 Range/Units 04:00 WBC 11.7 H (4.3-11.1) K/mcL Hgb 11.6 (11.5-15.4) g/dL Hct 38.8 (35.3-44.9) % Plt Count 270 (140-400) K/mcL Neutrophils # 10.5 H (1.6-8.9) K/mcL BMP 10/15/17 10/16/17 19:32 04:00 Sodium 140 Potassium 3.8 D 4.0 Chloride 95 L Carbon Dioxide 38 H BUN 29 H Creatinine 0.82 Glucose 294 H Calcium 9.2 - ABG Interpretation ABG results: ABG ABG pH 7.42 pH Units (7.32-7.45) 10/11/17 20:36 ABG pCO2 56 mmHg (35-45) H 10/11/17 20:36 ABG pO2 90 mmHg (85-104) 10/11/17 20:36 ABG O2 Saturation 97 % (95-98) 10/11/17 20:36 PT/INR, D-dimer PT 12.9 Seconds (9.4-12.1) H 10/12/17 01:26 Consult Discharge Plan - Plan Referrals: Cholo Leslie MD [Primary Care Provider] -
[2017-10-16] MEDS ORDERED: hydrALAZINE 25 MG TABLET PO ONE (10:23)
[2017-10-16] MEDS: Furosemide 20 MG TABLET PO SCH (17:06)
[2017-10-16] MEDS: *HR* Rivaroxaban 10 MG TABLET PO SCH (17:06)
[2017-10-16] MEDS: Gabapentin 300 MG CAPSULE PO SCH (21:26)
[2017-10-16] MEDS: Melatonin 3 MG TABLET PO SCH (21:26)
[2017-10-17] MEDS: *HR* HYDROcodone/Acet 5/325 mg TABLET PO PRN ×2 (00:34→08:10)
[2017-10-17] MEDS: methylPREDNISolone 125 MG/2 ML VIAL IVP SCH ×2 (00:34→08:09)
[2017-10-17] MEDS: Ipratropium/Albuterol Neb 3 ML IH SCH ×4 (03:32→11:14)
[2017-10-17] MEDS: Levofloxacin 750 MG/150 ML 750 MG/150 ML BAG IVPB SCH (08:08)
[2017-10-17] MEDS: Insulin LISPRO 300 UNITS/3 ML VIAL SQ SCH ×2 (08:09→12:03)
[2017-10-17] MEDS: Furosemide 40 MG TABLET PO SCH (08:10)
[2017-10-17] MEDS: *HR* Digoxin 0.125 MG TABLET PO SCH (08:10)
[2017-10-17] MEDS: hydrALAZINE 25 MG TABLET PO SCH (08:10)
[2017-10-17] MEDS: levETIRAcetam 250 MG TABLET PO SCH (08:17)
[2017-10-17 08:40] LABS: BUN/Creatinine Ratio 39 (6-26); Blood Urea Nitrogen 31 mg/dL (8-23); Calcium 8.5 mg/dL (8.6-10.3); Carbon Dioxide 38 mEq/L (23-29); Chloride 97 mEq/L (98-107); Glucose 342 mg/dL (70-105); Osmolality,Calculated 312 (280-300); Potassium 4.1 mEq/L (3.5-5.1); Sodium 141 mEq/L (136-145); eGFR For African Americans > 60 (> 60); eGFR For Non-African Americans > 60 (> 60)
[2017-10-17 08:54] LABS: Hemoglobin 10.3 g/dL (11.5-15.4); Mean Corpuscular HGB Conc 30.3 g/dL (31.6-35.5); Mean Corpuscular Hemoglobin 26.8 pg (28.0-33.3); Mean Corpuscular Volume 88.3 fL (83.0-100.0); Mean Platelet Volume 10.9 fL (9.4-12.4); Platelet Count 220 K/mcL (140-400); Red Blood Count 3.85 M/mcL (3.82-4.97); Red Cell Distribution Width 15.2 % (11.5-14.5)
--- NOTE | 2017-10-17 10:26 | Internal Med Progress Note ---
Date of Encounter: 10/17/17 Time of Encounter: 10:19 - Assessment and plan (1) Acute exacerbation of chronic obstructive airways disease Current Visit: Yes Status: Acute Assessment and plan: Presented with worsening shortness of breath for 2 weeks prior to admission. Has known COPD, on oxygen at home. Symptomatic with SOB and wheezing. CXR without infiltrates/opacity. Resp PCR negative. Sx's improving with IV ATB, steroids and duobebs. (2) Chronic systolic CHF (congestive heart failure) Current Visit: Yes Status: Chronic Assessment and plan: per hx. 07/2017 TTE with 45%. Appears euvolemic. Continue home ARB, Lasix, BB. Monitor I&O and daily weight. 1.5L daily fluid restriction. Appears to be stable at this time (3) Chest pain Current Visit: Yes Status: Acute Assessment and plan: presented with chest pain with w/radiation to left arm. Reports worsening w/ inspiration/cough. Likely d/t current COPD exacerbation. No chest pain at this time. 07/2017 TTE with EF of 45%, hypokinetic wall motion abnormality. Serial troponins negative. Continuous cardiac telemetry. Cont Xarelto, digoxin, statin , and HTN medications. Consult cardiology as needed. Continue to monitor Qualifiers: Chest pain type: other chest pain Qualified Code(s): R07.89 - Other chest pain; R07.8 - Other chest pain (4) A-fib Current Visit: Yes Status: Chronic Assessment and plan: Hx of chronic Afib. AICD/Pacemaker in place. Rate controlled. Cont home BB, Xarelto, digoxin. Qualifiers: Atrial fibrillation type: chronic Qualified Code(s): I48.2 - Chronic atrial fibrillation (5) Blindness Current Visit: Yes Status: Chronic Assessment and plan: Hx of chronic blindness. Falls/safety precautions, up with assist, bed rest w/ bathroom privileges w/assist only (6) Anemia Current Visit: Yes Status: Chronic Assessment and plan: Hx of chronic anemia. Hgb 11.1 and Hct 36.2 on admission which is improved from last admission. Hgb stable around baseline no active bleeding. Monitor Qualifiers: Anemia type: unspecified type Qualified Code(s): D64.9 - Anemia, unspecified (7) Mass, brain Current Visit: Yes Status: Resolved Assessment and plan: Hx of brain tumor w/resection surgery performed in August 2017. Continue pts. Keppra and monitor pt. closely for neurological changes. seizure precations- no signs or symptoms of seizure activity at this time we will continue to monitor (8) HLD (hyperlipidemia) Current Visit: Yes Status: Chronic Assessment and plan: per hx. Cont home statin Qualifiers: Hyperlipidemia type: pure hypercholesterolemia Qualified Code(s): E78.00 - Pure hypercholesterolemia, unspecified; E78.0 - Pure hypercholesterolemia (9) HTN (hypertension) Current Visit: Yes Status: Chronic Assessment and plan: per hx. BP not well controlled. Increase home hydralazine. Monitor BP and titrate PRN Qualifiers: Hypertension type: essential hypertension Qualified Code(s): I10 - Essential (primary) hypertension (10) Rheumatoid arthritis Current Visit: Yes Status: Chronic Assessment and plan: Hx of chronic RA. Continue Imuran. Qualifiers: Rheumatoid arthritis location: unspecified site Rheumatoid factor presence : unspecified presence Qualified Code(s): M06.9 - Rheumatoid arthritis, unspecified (11) Hyperkalemia Current Visit: Yes Status: Acute Assessment and plan: K peaked at 5.4; home potassium supplementation stopped. Repeat potassium normalized. Intermittently monitor. (12) DVT prophylaxis Current Visit: Yes Status: Acute Assessment and plan: Xarelto - Time Spent With Patient Total time spent is greater than 50% in coordination of care (as documented) at patient's floor/unit and/or counseling patient: - Subjective Interval history: Seen and examined at bedside. Says she feels a little better from yesterday but still short of breath, wheezing and has to cough. Complains of general weakness and malaise. No CP - Constitutional Vitals: Temp Pulse Resp BP Pulse Ox 98.0 F 74 16 123/79 100 10/17/17 07:42 10/17/17 07:42 10/17/17 07:42 10/17/17 07:42 10/17/17 08:10 General appearance: Present: cooperative, A&O X 3, pleasant, obese, answers questions appropriately - Head Head exam: Present: atraumatic, normocephalic - Eye Eye exam: Present: PERRL, conjuntiva pink, sclera anicteric Pupils: Present: PERRL - Neck Neck exam general surgery: Present: supple, trachea midline. Absent: lymphadenopathy - Respiratory Respiratory exam: Present: CTAB, rhonchi, wheezes. Absent: accessory muscle use , rales - Cardiovascular Cardiovascular exam: Present: RRR, +S1, +S2. Absent: diastolic murmur, gallop, rubs, systolic murmur - GI/Abdominal GI/Abdominal exam: Present: normal bowel sounds, soft, no peritoneal signs. Absent: distended, tenderness - Extremities Exam Extremities exam: Present: warm, radial pulses palpable and symmetrical. Absent : calf tenderness, cyanotic, pedal edema - Neurological Exam Neurological exam: Present: CN II-XII intact, oriented X3, no focal deficits. Absent: pronater drift, facial droop, speech deficit - Skin Skin exam: Present: dry, intact Internal Medicine: Result - Labs CBC & Chem 7: 10/17/17 04:00 10/17/17 04:00 Labs: Short CBC 10/17/17 Range/Units 04:00 WBC 7.6 (4.3-11.1) K/mcL Hgb 10.3 L (11.5-15.4) g/dL Hct 34.0 L (35.3-44.9) % Plt Count 220 (140-400) K/mcL BMP 10/17/17 04:00 Sodium 141 Potassium 4.1 Chloride 97 L Carbon Dioxide 38 H BUN 31 H Creatinine 0.79 Glucose 342 H Calcium 8.5 L - ABG Interpretation ABG results: ABG ABG pH 7.42 pH Units (7.32-7.45) 10/11/17 20:36 ABG pCO2 56 mmHg (35-45) H 10/11/17 20:36 ABG pO2 90 mmHg (85-104) 10/11/17 20:36 ABG O2 Saturation 97 % (95-98) 10/11/17 20:36 PT/INR, D-dimer PT 12.9 Seconds (9.4-12.1) H 10/12/17 01:26 Consult Discharge Plan - Plan Referrals: Cholo Leslie MD [Primary Care Provider] -
--- NOTE | 2017-10-17 10:28 | Discharge Summary ---
- NOTES TO OUTPATIENT PROVIDER Notes to Outpatient Provider: Recommend follow-up within 7-10 days after discharge from SNF Orders not resulted at time of discharge: Pending orders 10/17/17 04:00 BMP [Basic Metabolic Panel] AM 0400 Digoxin AM 0400 10/18/17 04:00 BMP [Basic Metabolic Panel] AM 0400 Complete Blood Count w/o Diff [HEME] AM 0400 10/19/17 04:00 BMP [Basic Metabolic Panel] AM 0400 Complete Blood Count w/o Diff [HEME] AM 0400 10/20/17 04:00 BMP [Basic Metabolic Panel] AM 0400 Complete Blood Count w/o Diff [HEME] AM 0400 10/21/17 04:00 BMP [Basic Metabolic Panel] AM 0400 Complete Blood Count w/o Diff [HEME] AM 0400 Date of Encounter: 10/17/17 Time of Encounter: 10:26 - Discharge Diagnosis (1) Acute exacerbation of chronic obstructive airways disease Priority: Primary Status: Acute Comments: Presented with worsening shortness of breath for 2 weeks prior to admission. Has known COPD, on oxygen at home. Symptomatic with SOB and wheezing. CXR without infiltrates/opacity. Resp PCR negative. Sx's improved with IV levaquin, steroids and duobebs. Cont levaquin (to complete a totoal course of 7 days), steroid burst and duonebs at discharge (2) Chronic systolic CHF (congestive heart failure) Priority: Secondary Status: Chronic Comments: per hx. 07/2017 TTE with 45%. Appeared euvolemic. Continue home ARB, Lasix, BB. Recommned cont monitor I&O and daily weight. 1.5L daily fluid restriction at SNF (3) Chest pain Priority: Primary Status: Acute Comments: presented with chest pain with w/radiation to left arm that worsened w/ inspiration/cough. Serial troponins negative, EKG without acute ST changes. 2017 TTE with EF of 45%, hypokinetic wall motion abnormality. Suspect chest pain secondary to COPD exacerbation. Cont Xarelto, digoxin, statin. Can follow up with cardiology outpatient. Qualifiers: Chest pain type: other chest pain Qualified Code(s): R07.89 - Other chest pain; R07.8 - Other chest pain (4) HTN (hypertension) Priority: Primary Status: Chronic Comments: per hx. BP not well controlled. Home hydralazine increased with improvement in BP. BP can be monitored at SNF Qualifiers: Hypertension type: essential hypertension Qualified Code(s): I10 - Essential (primary) hypertension (5) A-fib Priority: Secondary Status: Chronic Comments: Hx of chronic Afib. AICD/Pacemaker in place. Rate controlled. Cont home BB, Xarelto, digoxin. Qualifiers: Atrial fibrillation type: chronic Qualified Code(s): I48.2 - Chronic atrial fibrillation (6) Blindness Priority: Secondary Status: Chronic Comments: per hx. Supportive care (7) Anemia Priority: Secondary Status: Chronic Comments: Hx of chronic anemia. Hgb 11.1 and Hct 36.2 on admission which is improved from last admission. Hgb stable around baseline no active bleeding. CBC can be monitored at SNF Qualifiers: Anemia type: unspecified type Qualified Code(s): D64.9 - Anemia, unspecified (8) Mass, brain Priority: Secondary Status: Resolved Comments: Hx of brain cancer; s/p tumor resection at [facility] 08/2017. Cont Keppra. Seizure precautions. (9) HLD (hyperlipidemia) Priority: Secondary Status: Chronic Comments: per hx. Cont home statin Qualifiers: Hyperlipidemia type: pure hypercholesterolemia Qualified Code(s): E78.00 - Pure hypercholesterolemia, unspecified; E78.0 - Pure hypercholesterolemia (10) Rheumatoid arthritis Priority: Secondary Status: Chronic Comments: Hx of chronic RA. Continue Imuran. Qualifiers: Rheumatoid arthritis location: unspecified site Rheumatoid factor presence : unspecified presence Qualified Code(s): M06.9 - Rheumatoid arthritis, unspecified (11) Hyperkalemia Priority: Primary Status: Acute Comments: K peaked at 5.4; home potassium supplementation stopped. Repeat potassium normalized. Recommend monitoring electrolytes closely at SNF Hospital course: Ms. Durant is a 82 year old female Discharge discussed with: patient (Seen and examined at bedside. Says she feels a little better from yesterday but still short of breath, wheezing and has to cough. Complains of general weakness and malaise. No CP) - Time Spent with Patient Total time spent providing and/or coordinating discharge services: Less than 30 minutes - Discharge Medications Prescriptions: predniSONE [PredniSONE] 40 mg PO DAILY 5 Days #10 tablet Home Medications: Azathioprine [Imuran] 50 mg PO DAILY 01/03/16 [History] Digoxin [Lanoxin] 0.125 mg PO DAILY 01/03/16 [History] Furosemide [Lasix] 40 mg PO DAILY 01/03/16 [History] Levalbuterol [Xopenex INH] 2 puff PO Q6HR PRN 01/03/16 [History] Losartan Potassium [Cozaar] 100 mg PO DAILY 01/03/16 [History] Lovastatin 40 mg PO HS 01/03/16 [History] Rivaroxaban [Xarelto] 20 mg PO DAILY 01/03/16 [History] Ipratropium/Albuterol Neb [Duoneb] 3 ml IH Q6H PRN 07/02/17 [History] Amitriptyline [Elavil] 25 mg PO HS 10/11/17 [History] Carvedilol [Coreg] 18.75 mg PO BID 10/11/17 [History] Furosemide [Lasix] 20 mg PO QPM 10/11/17 [History] Gabapentin [Neurontin] 300 mg PO HS 10/11/17 [History] LevETIRAcetam [Keppra] 1,000 mg PO BID 10/11/17 [History] Omeprazole [PriLOSEC] 20 mg PO BIDAC 10/11/17 [History] Oxygen 2 l NS AD 10/11/17 [History] predniSONE [PredniSONE] See Taper PO DAILY 10/11/17 [History] hydrALAZINE [HydrALAZINE] 50 mg PO BID tablet 10/17/17 [Rx] predniSONE [PredniSONE] 40 mg PO DAILY 5 Days #10 tablet 10/17/17 [Rx] Allergies/Adverse Reactions: 3 Allergy/AdvReac Type Severity Reaction Status Date / Time iodine Allergy Hives Verified 08/15/17 10:32 Penicillins [PCN] Allergy Hives Verified 08/15/17 10:32 ferric carboxymaltose AdvReac Intermediate Chest Pain Verified 08/15/17 10:32 [From Injectafer] IVP DYE Allergy Hives Uncoded 08/15/17 10:32 Date of admission: 10/12/17 17:15 Primary care physician: Cholo Leslie MD Discharging clinician: Heide Cochran Anticipated date of discharge: 10/17/17 - Constitutional Vitals: Temp Pulse Resp BP Pulse Ox 98.0 F 74 16 123/79 100 10/17/17 07:42 10/17/17 07:42 10/17/17 07:42 10/17/17 07:42 10/17/17 08:10 General appearance: Present: cooperative, A&O X 3, pleasant, obese, answers questions appropriately - Head Head exam: Present: atraumatic, normocephalic - Eye Eye exam: Present: PERRL, conjuntiva pink, sclera anicteric Pupils: Present: PERRL - Neck Neck exam general surgery: Present: supple, trachea midline. Absent: lymphadenopathy - Respiratory Respiratory exam: Present: CTAB, rhonchi, wheezes. Absent: accessory muscle use , rales - Cardiovascular Cardiovascular exam: Present: RRR, +S1, +S2. Absent: diastolic murmur, gallop, rubs, systolic murmur - GI/Abdominal GI/Abdominal exam: Present: normal bowel sounds, soft, no peritoneal signs. Absent: distended, tenderness - Extremities Exam Extremities exam: Present: warm, radial pulses palpable and symmetrical. Absent : calf tenderness, cyanotic, pedal edema - Neurological Exam Neurological exam: Present: CN II-XII intact, oriented X3, no focal deficits. Absent: pronater drift, facial droop, speech deficit - Skin Skin exam: Present: dry, intact - Patient Status Disposition: Transfer SNF Condition: Good Functional capacity at discharge: uses cane/walker Overall status at discharge: patient is progressing back to baseline - Discharge Instructions Instructions: Chronic Obstructive Pulmonary Disease (DC) Follow Up With: Cholo Leslie MD [Primary Care Provider] - - Diet and Activity Activity: as per physical therapy Diet: low fat, low cholesterol, low salt diet
--- NOTE | 2017-10-17 10:57 | Physician Discharge Referral ---
ExtendedCare Referral Info Transfer To: SNF Provider in Charge: Heide Cochran CNP Provider in Charge after Transfer: PCP Institutional Level of Care: Skilled - Diagnosis (1) Acute exacerbation of chronic obstructive airways disease Status: Acute (2) Chronic systolic CHF (congestive heart failure) Status: Chronic (3) Chest pain Status: Acute (4) HTN (hypertension) Status: Chronic (5) A-fib Status: Chronic (6) Blindness Status: Chronic (7) Anemia Status: Chronic (8) Mass, brain Status: Resolved (9) HLD (hyperlipidemia) Status: Chronic (10) Rheumatoid arthritis Status: Chronic (11) Hyperkalemia Status: Acute Prognosis: Good Aware of Diagnosis: Patient - Transfer Medications Prescriptions: predniSONE [PredniSONE] 40 mg PO DAILY 5 Days #10 tablet Home Medications: Azathioprine [Imuran] 50 mg PO DAILY 01/03/16 [History] Digoxin [Lanoxin] 0.125 mg PO DAILY 01/03/16 [History] Furosemide [Lasix] 40 mg PO DAILY 01/03/16 [History] Levalbuterol [Xopenex INH] 2 puff PO Q6HR PRN 01/03/16 [History] Losartan Potassium [Cozaar] 100 mg PO DAILY 01/03/16 [History] Lovastatin 40 mg PO HS 01/03/16 [History] Rivaroxaban [Xarelto] 20 mg PO DAILY 01/03/16 [History] Ipratropium/Albuterol Neb [Duoneb] 3 ml IH Q6H PRN 07/02/17 [History] Amitriptyline [Elavil] 25 mg PO HS 10/11/17 [History] Carvedilol [Coreg] 18.75 mg PO BID 10/11/17 [History] Furosemide [Lasix] 20 mg PO QPM 10/11/17 [History] Gabapentin [Neurontin] 300 mg PO HS 10/11/17 [History] LevETIRAcetam [Keppra] 1,000 mg PO BID 10/11/17 [History] Omeprazole [PriLOSEC] 20 mg PO BIDAC 10/11/17 [History] Oxygen 2 l NS AD 10/11/17 [History] predniSONE [PredniSONE] See Taper PO DAILY 10/11/17 [History] hydrALAZINE [HydrALAZINE] 50 mg PO BID tablet 10/17/17 [Rx] predniSONE [PredniSONE] 40 mg PO DAILY 5 Days #10 tablet 10/17/17 [Rx] Allergies/Adverse Reactions: 3 Allergy/AdvReac Type Severity Reaction Status Date / Time iodine Allergy Hives Verified 08/15/17 10:32 Penicillins [PCN] Allergy Hives Verified 08/15/17 10:32 ferric carboxymaltose AdvReac Intermediate Chest Pain Verified 08/15/17 10:32 [From Injectafer] IVP DYE Allergy Hives Uncoded 08/15/17 10:32 - Respiratory Orders Oxygen / L per min (2) Smoking Cessation: Smoking cessation has been advised. For more information, call the [place] Tobacco Quit Line at 9-142-IXDY-NOW. - Advance Directives Code Status: Full Code - Mobility Orders Ambulate - Rehabiliation Orders Rehab Potential: Good Rehab Orders: Evaluation for Physical Therapy, Evaluation for Occupational Therapy - Diet Orders No Added Salt (CAPRICE), Cardiac CERTIFICATION: I certify that the transfer of the above named patient to an Extended Care Facility is necessary for the continuing treatment of the diagnosis listed. The above information is true and accurate reflection of patient's current condition. Confidential - Redisclosure prohibited without a patient's written consent.
[2017-10-17 11:00] VITALS: BP 97/60
[2017-10-17 11:09] LABS: Digoxin 0.8 ng/mL (0.8-2.0)
== END 2017-10-17 14:09 | DRG 191 ==
LOC: 3BNU 12:20 → EMEROO 12:20 → 3BNU 18:22
PROVIDERS: ADMIT Internal Medicine; ATTEND Registered Nurse

== ENCOUNTER 2018-07-07 15:22 | Inpatient (IN) ==
[2018-07-07] MEDS ORDERED: Ipratropium/Albuterol Neb 3 ML IH ONE (15:34)
[2018-07-07] MEDS ORDERED: Furosemide 40 MG/4 ML VIAL IVP ONE (15:34)
[2018-07-07] MEDS ORDERED: methylPREDNISolone 125 MG/2 ML VIAL IVP ONE (15:34)
--- NOTE | 2018-07-07 15:41 | Emergency Department Note ---
Disposition Clinical Impression: Hypokalemia Congestive heart failure Qualifiers: Heart failure type: unspecified Heart failure chronicity: chronic Qualified Code(s): I50.9 - Heart failure, unspecified COPD (chronic obstructive pulmonary disease) Qualifiers: COPD type: chronic bronchitis Chronic bronchitis type: simple Qualified Code(s): J41.0 - Simple chronic bronchitis Disposition: Admitted As Inpatient Condition: Fair Referrals: Cholo Leslie MD [Primary Care Provider] - Forms: ED Satisfaction Letter Time of Disposition: 17:22 General Adult HPI - General Chief complaint: ED Shortness of Breath/Dyspnea Stated complaint: SOB Time Seen by Provider: 07/07/18 15:25 Source: patient, EMS Mode of arrival: EMS Limitations: no limitations Nursing Notes Reviewed: Yes Vital Signs Reviewed: Yes - History of Present Illness HPI Narrative: Patient is an 83-year-old female presenting with difficulty breathing and shortness of breath. Patient has history significant for RA, COPD, CHF, hypertension and hyperlipidemia. Patient states that starting yesterday she began to have increased cough with change in sputum. She states that overnight she had increased difficulty breathing. She also notes subjective fevers with chills. Patient denies any chest pain. However she does state that she has had some abdominal pain with some nausea. No vomiting no diarrhea. Patient chronically wears 2 L nasal cannula at home. She has not increased this. She did call EMS and per EMS on arrival patient's oxygen saturation at 2 L was 90%. Patient was started on 3 L nasal cannula as well as given 1 DuoNeb. She responded positively with 98% saturation per EMS report. - Related Data Home Medications Medication Instructions Recorded Confirmed Azathioprine [Imuran] 50 mg PO DAILY 01/03/16 01/28/18 Furosemide [Lasix] 40 mg PO DAILY 01/03/16 01/28/18 Levalbuterol [Xopenex INH] 2 puff PO Q6HR PRN 01/03/16 01/28/18 Losartan Potassium [Cozaar] 100 mg PO DAILY 01/03/16 01/28/18 Lovastatin 40 mg PO HS 01/03/16 01/28/18 Rivaroxaban [Xarelto] 20 mg PO DAILY 01/03/16 01/28/18 Ipratropium/Albuterol Neb [Duoneb] 3 ml IH Q6H PRN 07/02/17 01/28/18 Amitriptyline [Elavil] 25 mg PO HS 10/11/17 01/28/18 Carvedilol [Coreg] 18.75 mg PO BID 10/11/17 01/28/18 Furosemide [Lasix] 20 mg PO QPM 10/11/17 01/28/18 Gabapentin [Neurontin] 300 mg PO HS 10/11/17 01/28/18 LevETIRAcetam [Keppra] 1,000 mg PO BID 10/11/17 01/28/18 Omeprazole [PriLOSEC] 20 mg PO BIDAC 10/11/17 01/28/18 Oxygen 2 l NS AD 10/11/17 01/28/18 Ferrous Sulfate 325 mg PO DAILY 04/30/18 04/30/18 Bimatoprost [Lumigan] 1 drop BOTH EYES QPM 07/07/18 07/07/18 Budesonide/Formoterol 160/4.5 2 puff IH BIDR 07/07/18 07/07/18 [Symbicort 160/4.5] Potassium Chloride [K-Tab ER] 20 meq PO DAILY 07/07/18 07/07/18 Previous Rx's Medication Instructions Recorded hydrALAZINE [HydrALAZINE] 50 mg PO BID tablet 10/17/17 Multivit-Min/Iron/Folic/Lutein 1 each PO DAILY #30 tablet 04/30/18 [Centrum Silver Women Tablet] Allergies Allergy/AdvReac Type Severity Reaction Status Date / Time iodine Allergy Hives Verified 04/30/18 10:02 Penicillins [PCN] Allergy Hives Verified 04/30/18 10:02 ferric carboxymaltose AdvReac Intermediate Chest Pain Verified 04/30/18 10:02 [From Injectafer] IVP DYE Allergy Hives Uncoded 04/30/18 10:02 All systems ED: reviewed and negative except as stated. Review of Systems: As Per HPI Constitutional: Reports: fever, chills. Denies: weakness ENT ED: Reports: congestion Cardiovascular: Reports: dyspnea on exertion, orthopnea. Denies: chest pain, palpitations, edema, syncope Respiratory: Reports: cough, dyspnea, wheezes, sputum production. Denies: hemoptysis Gastrointestinal: Reports: abdominal pain, nausea. Denies: vomiting, diarrhea, constipation, hematemesis, melena, hematochezia Genitourinary: Denies: dysuria, frequency, hematuria Musculoskeletal: Denies: back pain Integumentary: Denies: rash, abrasion, lesions Neurological: Denies: headache, weakness, numbness, paresthesias, confusion Psychiatric: Denies: anxiety Endocrine: Denies: fatigue Hematological/Lymphatic: Denies: easy bleeding Past Medical History - Past Medical History Attestation: Yes The following information was validated with the patient. 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: Reports: no DIVIDEND DEPOSIT VOUCHER CLERK history - Social History Smoking Status: Former smoker Smokeless Tobacco Status: No Alcohol use: Reports: none Drug use: Reports: none Physical Exam - General Limitations: no limitations General appearance: alert, in no apparent distress, other (Patient on room air was satting at 76%, 4 L nasal cannula was added patient saturating at 96%) - Head Head exam: atraumatic, normocephalic, normal inspection - Eye Eye exam: Present: normal appearance, PERRL, EOMI - ENT ENT exam: normal exam, normal oropharynx, mucous membranes moist - Neck Neck exam: Present: normal inspection, full ROM, trachea midline - Chest Chest inspection: Present: normal inspection, symmetric chest wall rise. Absent: tenderness - Respiratory Respiratory exam: Present: wheezes (Scattered throughout with prolonged expirat ory phase. Crackles are still noted to the bases bilaterally), prolonged expiratory phase. Absent: respiratory distress - Cardiovascular Cardiovascular exam: Present: regular rate, normal rhythm, normal heart sounds - Abdominal Exam Abdominal exam: Present: tenderness (Patient diffusely tender throughout her abdomen, no guarding or rebound) - Extremities Exam Extremities exam: Present: normal inspection, full ROM, normal capillary refill. Absent: tenderness, pedal edema, calf tenderness - Neurological Exam Neurological exam: Present: alert, oriented X3 - Psychiatric Psychiatric exam: Present: normal affect, normal mood - Skin Skin exam: Present: warm, dry, intact, normal color Course Vital Signs Temperature 98.5 F 07/07/18 15:27 Pulse Rate 69 07/07/18 15:27 Respiratory Rate 14 07/07/18 15:27 Blood Pressure 113/97 07/07/18 15:27 O2 Sat by Pulse Oximetry 97 07/07/18 15:27 Temperature 98.5 F 07/07/18 15:27 Pulse Rate 69 07/07/18 15:27 Respiratory Rate 14 07/07/18 15:27 Blood Pressure 113/97 07/07/18 15:27 O2 Sat by Pulse Oximetry 97 07/07/18 15:27 Oxygen Delivery Oxygen Delivery Nasal Cannula Medical Decision Making - [facility] Narrative Medical decision making narrative: Patient is an 83-year-old. Presenting with difficulty breathing and cough. She does state she has increased cough and change in sputum production. She does have history of COPD, CHF and atrial fibrillation. On examination, she does have wheezes throughout with crackles at the bases. No lower extremity swelling. Did also have diffuse abdominal tenderness with history of small bowel obstruction. EKG shows paced rhythm, no acute ischemic changes. Troponin is negative. CBC shows continued anemia at 9.4. Appears to be near her baseline. No leukocytosis is noted. BMP shows a hypokalemia at 3.3, she was given 40 mequivalent of potassium. On arrival, patient was satting at 76% on room air, 4 L of nasal cannula was added and went up to 98%. She was given DuoNeb 3 as well as Solu-Medrol. She was also given potassium replacement. Patient was also given given 40 of Lasix. Chest x-ray shows pulmonary vascular congestion suggestive of CHF. BNP is elevated in the 191. CT of the abdomen and pelvis was performed that shows no evidence of obstruction, no acute intra- abdominal etiology. Given patient's clinical picture, COPD versus CHF exacerbation, patient was also started on Levaquin 500 mg by mouth. A urinalysis was ordered, a Vaughan was placed. At this point in time, we will admit the patient for COPD/CHF exacerbation for further evaluation. - Medical Records Medical records reviewed: Yes I reviewed the patient's medical records. - Lab Data Lab results reviewed: Yes I reviewed the patient's lab results. Result diagrams: 07/07/18 15:48 07/07/18 15:48 Lab Results 07/07/18 07/07/18 07/07/18 Range/Units 15:48 15:48 15:48 WBC (4.3-11.1) K/mcL RBC (3.82-4.97) M/mcL Hgb (11.5-15.4) g/dL Hct (35.3-44.9) % MCV (83.0-100.0) fL MCH (28.0-33.3) pg MCHC (31.6-35.5) g/dL RDW (11.5-14.5) % Plt Count (140-400) K/mcL MPV (9.4-12.4) fL Immature Gran % (0-4) % Seg Neutrophils % % Lymphocytes % % Monocytes % % Eosinophils % % Basophils % % Neutrophils # (1.6-8.9) K/mcL Lymphocytes # (0.6-4.6) K/mcL Monocytes # (0.0-1.3) K/mcL Eosinophils # (0.0-0.6) K/mcL Basophils # (0.0-0.2) K/mcL PT 25.4 H (9.4-12.1) Seconds INR 2.3 APTT 36.8 H (26.0-36.0) Seconds Sodium (136-145) mEq/L Potassium (3.5-5.1) mEq/L Chloride (98-107) mEq/L Carbon Dioxide (23-29) mEq/L BUN (8-23) mg/dL Creatinine (0.60-1.20) mg/dL Est GFR ( Amer) (> 60) Est GFR (Non-Af Amer) (> 60) BUN/Creatinine Ratio (6-26) Glucose (70-105) mg/dL Calculated Osmolality (280-300) Calcium (8.6-10.3) mg/dL Total Bilirubin 0.3 (0.3-1.0) mg/dL Direct Bilirubin 0.1 (0.0-0.2) mg/dL Indirect Bilirubin 0.2 (0.0-1.2) mg/dL AST 16 (13-39) Units/L ALT 10 (7-52) Units/L Alkaline Phosphatase 74 (34-104) Units/L Troponin I (< 0.04) ng/mL B-Natriuretic Peptide 191 H (Less than 100) pg/mL Serum Total Protein 6.6 (6.4-8.9) g/dL Albumin 3.9 (3.5-5.7) g/dL Globulin 2.7 (2.4-3.5) g/dL Albumin/Globulin Ratio 1.4 (1.1-2.2) Lipase 20 (11-82) Units/L Urine Color (Yellow) Urine Clarity (Clear) Urine pH (5.0-8.0) pH Units Ur Specific Whiteface (1.010-1.025) Urine Protein (Neg-Trace) mg/dL Urine Glucose (UA) (Normal) mg/dL Urine Ketones (Negative) mg/dL Urine Blood (Negative) Urine Nitrite (Negative) Urine Bilirubin (Negative) Urine Urobilinogen (Normal) mg/dL Ur Leukocyte Esterase (Negative) Ur Culture Indicated? (NO) 07/07/18 07/07/18 07/07/18 Range/Units 15:48 15:48 17:02 WBC 4.3 (4.3-11.1) K/mcL RBC 3.58 L (3.82-4.97) M/mcL Hgb 9.3 L (11.5-15.4) g/dL Hct 31.8 L (35.3-44.9) % MCV 88.8 (83.0-100.0) fL MCH 26.0 L (28.0-33.3) pg MCHC 29.2 L (31.6-35.5) g/dL RDW 14.5 (11.5-14.5) % Plt Count 165 (140-400) K/mcL MPV 10.5 (9.4-12.4) fL Immature Gran % 0.2 (0-4) % Seg Neutrophils % 78.0 % Lymphocytes % 7.8 % Monocytes % 8.2 % Eosinophils % 5.6 % Basophils % 0.2 % Neutrophils # 3.3 (1.6-8.9) K/mcL Lymphocytes # 0.3 L (0.6-4.6) K/mcL Monocytes # 0.4 (0.0-1.3) K/mcL Eosinophils # 0.2 (0.0-0.6) K/mcL Basophils # 0.0 (0.0-0.2) K/mcL PT (9.4-12.1) Seconds INR APTT (26.0-36.0) Seconds Sodium 141 (136-145) mEq/L Potassium 3.3 L (3.5-5.1) mEq/L Chloride 100 (98-107) mEq/L Carbon Dioxide 35 H (23-29) mEq/L BUN 15 (8-23) mg/dL Creatinine 0.90 (0.60-1.20) mg/dL Est GFR ( Amer) > 60 (> 60) Est GFR (Non-Af Amer) 60 (> 60) BUN/Creatinine Ratio 17 (6-26) Glucose 91 (70-105) mg/dL Calculated Osmolality 292 (280-300) Calcium 9.0 (8.6-10.3) mg/dL Total Bilirubin (0.3-1.0) mg/dL Direct Bilirubin (0.0-0.2) mg/dL Indirect Bilirubin (0.0-1.2) mg/dL AST (13-39) Units/L ALT (7-52) Units/L Alkaline Phosphatase (34-104) Units/L Troponin I < 0.03 (< 0.04) ng/mL B-Natriuretic Peptide (Less than 100) pg/mL Serum Total Protein (6.4-8.9) g/dL Albumin (3.5-5.7) g/dL Globulin (2.4-3.5) g/dL Albumin/Globulin Ratio (1.1-2.2) Lipase (11-82) Units/L Urine Color Yellow (Yellow) Urine Clarity Clear (Clear) Urine pH 5.0 (5.0-8.0) pH Units Ur Specific Whiteface 1.014 (1.010-1.025) Urine Protein Negative (Neg-Trace) mg/dL Urine Glucose (UA) Normal (Normal) mg/dL Urine Ketones Negative (Negative) mg/dL Urine Blood Negative (Negative) Urine Nitrite Negative (Negative) Urine Bilirubin Negative (Negative) Urine Urobilinogen Normal (Normal) mg/dL Ur Leukocyte Esterase Negative (Negative) Ur Culture Indicated? NO (NO) - Radiology Data Radiology results reviewed: Yes I reviewed the patient's radiology results. Chest X-Ray 07/07/18 15:33 IMPRESSION: Findings suggest congestive heart failure D/ / Chandrakant Weir MD / Chandrakant Weir MD Interpreting Provider: Chandrakant Weir MD Abdomen/Pelvis CT 07/07/18 15:35 IMPRESSION: 1. No acute abnormality in the abdomen or pelvis on the noncontrast CT. No bowel obstruction. D/ / 07/07/2018 17:00:26 Gildardo Perry MD / tima Interpreting Provider: Gildardo Perry MD - EKG Data EKG #1 EKG attestation: Yes I reviewed and interpreted this EKG. EKG results narrative: EKG performed at 1532 with ventricular rate of 67, AV dual paced rhythm is note d. Normal axis, no ST elevation, depression. In comparison to previous obtained on 09/2017 appears unchanged. S.B.ADavid - Davidson.Cheryl Situation: Demographics, MOA Background: Presenting Complaint, Relevant PMH, Meds, & Allergies Assessment: Vital Signs, Course and respsone to treatment, Exam Concerns, Patient/Family Expectation, Pertinant Lab Results, Outstanding Labs Recommendation: Barrier(s) to disposition, Recommendation based on pending studies, treatments, or consults S.B.ADavid Report Given to: Dr. Reece Patel Repor Time: 17:22 (accepted)
[2018-07-07 16:24] LABS: Basophils % 0.2 %; Eosinophils # 0.2 K/mcL (0.0-0.6); Eosinophils % 5.6 %; Hematocrit 31.8 % (35.3-44.9); Hemoglobin 9.3 g/dL (11.5-15.4); Immature Granulocytes % 0.2 % (0-4); Lymphocytes # 0.3 K/mcL (0.6-4.6); Lymphocytes % 7.8 %; Mean Corpuscular HGB Conc 29.2 g/dL (31.6-35.5); Mean Corpuscular Volume 88.8 fL (83.0-100.0); Mean Platelet Volume 10.5 fL (9.4-12.4); Monocytes # 0.4 K/mcL (0.0-1.3); Monocytes % 8.2 %; Neutrophils # 3.3 K/mcL (1.6-8.9); Platelet Count 165 K/mcL (140-400); Red Blood Count 3.58 M/mcL (3.82-4.97); Red Cell Distribution Width 14.5 % (11.5-14.5)
[2018-07-07 16:33] LABS: INR 2.3; Prothrombin Time 25.4 Seconds (9.4-12.1)
[2018-07-07 16:36] LABS: Activated Partial Thrombo Time 36.8 Seconds (26.0-36.0)
[2018-07-07 16:44] LABS: Albumin 3.9 g/dL (3.5-5.7); Albumin/Globulin Ratio 1.4 (1.1-2.2); Bilirubin,Direct 0.1 mg/dL (0.0-0.2); Bilirubin,Indirect 0.2 mg/dL (0.0-1.2); Bilirubin,Total 0.3 mg/dL (0.3-1.0); Globulin 2.7 g/dL (2.4-3.5); Total Protein 6.6 g/dL (6.4-8.9)
[2018-07-07 16:46] LABS: BUN/Creatinine Ratio 17 (6-26); Blood Urea Nitrogen 15 mg/dL (8-23); Carbon Dioxide 35 mEq/L (23-29); Chloride 100 mEq/L (98-107); Glucose 91 mg/dL (70-105); Osmolality,Calculated 292 (280-300); Potassium 3.3 mEq/L (3.5-5.1); Sodium 141 mEq/L (136-145); eGFR For Non-African Americans 60 (> 60)
[2018-07-07 16:47] LABS: Troponin I < 0.03 ng/mL (< 0.04)
--- NOTE | 2018-07-07 16:53 | Emergency Department Note ---
Disposition Clinical Impression: Congestive heart failure, COPD (chronic obstructive pulmonary disease), Hypokalemia Disposition: Admitted As Inpatient Referrals: Cholo Leslie MD [Primary Care Provider] - Forms: ED Satisfaction Letter General Adult HPI - General Chief complaint: ED Shortness of Breath/Dyspnea Stated complaint: SOB Time Seen by Provider: 07/07/18 15:25 Source: patient, EMS Mode of arrival: EMS Limitations: no limitations - History of Present Illness Pain Scale: 8 - Related Data Home Medications Medication Instructions Recorded Confirmed Azathioprine [Imuran] 50 mg PO BID 01/03/16 07/07/18 Furosemide [Lasix] 40 mg PO DAILY 01/03/16 07/07/18 Levalbuterol [Xopenex INH] 2 puff PO Q6HR PRN 01/03/16 07/07/18 Losartan Potassium [Cozaar] 100 mg PO DAILY 01/03/16 07/07/18 Lovastatin 40 mg PO HS 01/03/16 07/07/18 Rivaroxaban [Xarelto] 20 mg PO DAILY 01/03/16 07/07/18 Ipratropium/Albuterol Neb [Duoneb] 3 ml IH Q6H PRN 07/02/17 07/07/18 Amitriptyline [Elavil] 25 mg PO HS 10/11/17 07/07/18 Carvedilol [Coreg] 18.75 mg PO BID 10/11/17 07/07/18 Furosemide [Lasix] 20 mg PO QPM 10/11/17 07/07/18 Gabapentin [Neurontin] 300 mg PO HS 10/11/17 07/07/18 LevETIRAcetam [Keppra] 1,000 mg PO BID 10/11/17 07/07/18 Omeprazole [PriLOSEC] 20 mg PO BIDAC 10/11/17 07/07/18 Oxygen 2 l NS AD 10/11/17 07/07/18 Ferrous Sulfate 325 mg PO DAILY 04/30/18 07/07/18 Bimatoprost [Lumigan] 1 drop BOTH EYES QPM 07/07/18 07/07/18 Budesonide/Formoterol 160/4.5 2 puff IH BIDR 07/07/18 07/07/18 [Symbicort 160/4.5] Potassium Chloride [K-Tab ER] 20 meq PO DAILY 07/07/18 07/07/18 Previous Rx's Medication Instructions Recorded hydrALAZINE [HydrALAZINE] 50 mg PO BID tablet 10/17/17 Multivit-Min/Iron/Folic/Lutein 1 each PO DAILY #30 tablet 04/30/18 [Centrum Silver Women Tablet] Allergies Allergy/AdvReac Type Severity Reaction Status Date / Time iodine Allergy Hives Verified 04/30/18 10:02 Penicillins [PCN] Allergy Hives Verified 04/30/18 10:02 ferric carboxymaltose AdvReac Intermediate Chest Pain Verified 04/30/18 10:02 [From Injectafer] IVP DYE Allergy Hives Uncoded 04/30/18 10:02 Constitutional: Reports: fever, chills. Denies: weakness ENT ED: Reports: congestion Cardiovascular: Reports: dyspnea on exertion, orthopnea. Denies: chest pain, palpitations, edema, syncope Respiratory: Reports: cough, dyspnea, wheezes, sputum production. Denies: hemoptysis Gastrointestinal: Reports: abdominal pain, nausea. Denies: vomiting, diarrhea, constipation, hematemesis, melena, hematochezia Genitourinary: Denies: dysuria, frequency, hematuria Musculoskeletal: Denies: back pain Integumentary: Denies: rash, abrasion, lesions Neurological: Denies: headache, weakness, numbness, paresthesias, confusion Psychiatric: Denies: anxiety Endocrine: Denies: fatigue Hematological/Lymphatic: Denies: easy bleeding Past Medical History - Past Medical History Medical history: Reports: atrial fibrillation, CHF, COPD, hyperlipidemia, hypertension, RA, other Surgical history: Reports: cancer surgery, cataract, knee replacement, orthopedic, other, pacemaker/AICD Psychiatric history: Reports: anxiety SPINDLE SETTER history: Reports: no SPINDLE SETTER history - Social History Smoking Status: Former smoker Smokeless Tobacco Status: No Alcohol use: Reports: none Drug use: Reports: none Physical Exam - General Limitations: no limitations General appearance: alert, in no apparent distress, other (Patient on room air was satting at 76%, 4 L nasal cannula was added patient saturating at 96%) Course Vital Signs Temperature 98.5 F 07/07/18 15:27 Pulse Rate 69 07/07/18 15:27 Respiratory Rate 14 07/07/18 15:27 Blood Pressure 113/97 07/07/18 15:27 O2 Sat by Pulse Oximetry 97 07/07/18 15:27 Temperature 98.5 F 07/07/18 15:27 Pulse Rate 69 07/07/18 15:27 Respiratory Rate 14 07/07/18 15:27 Blood Pressure 113/97 07/07/18 15:27 O2 Sat by Pulse Oximetry 97 07/07/18 15:27 Oxygen Delivery Oxygen Delivery Nasal Cannula Medical Decision Making - MDM Narrative Medical decision making narrative: admit copd and chf levaquin, lasix given duonebs given K replaced solumedrol given - Medical Records Medical records reviewed: Yes I reviewed the patient's medical records. - Lab Data Lab results reviewed: Yes I reviewed the patient's lab results. Result diagrams: 07/07/18 15:48 07/07/18 15:48 Lab Results 07/07/18 07/07/18 07/07/18 Range/Units 15:48 15:48 15:48 WBC (4.3-11.1) K/mcL RBC (3.82-4.97) M/mcL Hgb (11.5-15.4) g/dL Hct (35.3-44.9) % MCV (83.0-100.0) fL MCH (28.0-33.3) pg MCHC (31.6-35.5) g/dL RDW (11.5-14.5) % Plt Count (140-400) K/mcL MPV (9.4-12.4) fL Immature Gran % (0-4) % Seg Neutrophils % % Lymphocytes % % Monocytes % % Eosinophils % % Basophils % % Neutrophils # (1.6-8.9) K/mcL Lymphocytes # (0.6-4.6) K/mcL Monocytes # (0.0-1.3) K/mcL Eosinophils # (0.0-0.6) K/mcL Basophils # (0.0-0.2) K/mcL PT 25.4 H (9.4-12.1) Seconds INR 2.3 APTT 36.8 H (26.0-36.0) Seconds Sodium (136-145) mEq/L Potassium (3.5-5.1) mEq/L Chloride (98-107) mEq/L Carbon Dioxide (23-29) mEq/L BUN (8-23) mg/dL Creatinine (0.60-1.20) mg/dL Est GFR ( Amer) (> 60) Est GFR (Non-Af Amer) (> 60) BUN/Creatinine Ratio (6-26) Glucose (70-105) mg/dL Calculated Osmolality (280-300) Calcium (8.6-10.3) mg/dL Total Bilirubin 0.3 (0.3-1.0) mg/dL Direct Bilirubin 0.1 (0.0-0.2) mg/dL Indirect Bilirubin 0.2 (0.0-1.2) mg/dL AST 16 (13-39) Units/L ALT 10 (7-52) Units/L Alkaline Phosphatase 74 (34-104) Units/L Troponin I (< 0.04) ng/mL B-Natriuretic Peptide 191 H (Less than 100) pg/mL Serum Total Protein 6.6 (6.4-8.9) g/dL Albumin 3.9 (3.5-5.7) g/dL Globulin 2.7 (2.4-3.5) g/dL Albumin/Globulin Ratio 1.4 (1.1-2.2) Lipase 20 (11-82) Units/L 07/07/18 07/07/18 Range/Units 15:48 15:48 WBC 4.3 (4.3-11.1) K/mcL RBC 3.58 L (3.82-4.97) M/mcL Hgb 9.3 L (11.5-15.4) g/dL Hct 31.8 L (35.3-44.9) % MCV 88.8 (83.0-100.0) fL MCH 26.0 L (28.0-33.3) pg MCHC 29.2 L (31.6-35.5) g/dL RDW 14.5 (11.5-14.5) % Plt Count 165 (140-400) K/mcL MPV 10.5 (9.4-12.4) fL Immature Gran % 0.2 (0-4) % Seg Neutrophils % 78.0 % Lymphocytes % 7.8 % Monocytes % 8.2 % Eosinophils % 5.6 % Basophils % 0.2 % Neutrophils # 3.3 (1.6-8.9) K/mcL Lymphocytes # 0.3 L (0.6-4.6) K/mcL Monocytes # 0.4 (0.0-1.3) K/mcL Eosinophils # 0.2 (0.0-0.6) K/mcL Basophils # 0.0 (0.0-0.2) K/mcL PT (9.4-12.1) Seconds INR APTT (26.0-36.0) Seconds Sodium 141 (136-145) mEq/L Potassium 3.3 L (3.5-5.1) mEq/L Chloride 100 (98-107) mEq/L Carbon Dioxide 35 H (23-29) mEq/L BUN 15 (8-23) mg/dL Creatinine 0.90 (0.60-1.20) mg/dL Est GFR ( Amer) > 60 (> 60) Est GFR (Non-Af Amer) 60 (> 60) BUN/Creatinine Ratio 17 (6-26) Glucose 91 (70-105) mg/dL Calculated Osmolality 292 (280-300) Calcium 9.0 (8.6-10.3) mg/dL Total Bilirubin (0.3-1.0) mg/dL Direct Bilirubin (0.0-0.2) mg/dL Indirect Bilirubin (0.0-1.2) mg/dL AST (13-39) Units/L ALT (7-52) Units/L Alkaline Phosphatase (34-104) Units/L Troponin I < 0.03 (< 0.04) ng/mL B-Natriuretic Peptide (Less than 100) pg/mL Serum Total Protein (6.4-8.9) g/dL Albumin (3.5-5.7) g/dL Globulin (2.4-3.5) g/dL Albumin/Globulin Ratio (1.1-2.2) Lipase (11-82) Units/L - Radiology Data Radiology results reviewed: Yes I reviewed the patient's radiology results. Attestation Statement - Attestation Attestation: I examined this patient and my medical decision-making was reviewed with the Resident Physician. I agree with the documented findings, disposition and treatment plan as described except to the extent set forth below. 83 yo F here for SOB, increasing yellow sputum, weakness, and chest discomfort. hx of COPD, CHF. she is not sure if she has gained weight or not. she is legally blind. has home health care daily at her apt. she has no active CP. paced rhythm on ekg. cxr appears chf. lasix given. steroids given. duonebs. pt will need to be admitted.
[2018-07-07] MEDS ORDERED: levoFLOXacin 500 MG TABLET PO ONE (17:04)
[2018-07-07 17:10] LABS: Bilirubin,Urine Negative (Negative); Blood,Urine Negative (Negative); Clarity,Urine Clear (Clear); Color,Urine Yellow (Yellow); Glucose,Urine (UA) Normal (Normal); Ketones,Urine Negative (Negative); Leukocyte Esterase,Urine Negative (Negative); Nitrite,Urine Negative (Negative); Protein,Urine Negative (Neg-Trace); Specific Gravity,Urine 1.014 (1.010-1.025); Urobilinogen,Urine Normal (Normal)
[2018-07-07] MEDS ORDERED: Naloxone 0.4 MG/ML INJ IVP PRN (21:00)
[2018-07-07] MEDS ORDERED: Levalbuterol Neb 1.25 MG/3 ML ONE (23:59)
--- NOTE | 2018-07-08 00:01 | Internal Med History&Physical ---
Date of Encounter: 07/07/18 Time of Encounter: 19:00 Internal Medicine - H&P: HPI Admitted From: Home Plans for Post Hospital Care: Home History of present illness: The patient is an 83-year-old woman. Legally blind. She was brought to the emergency room with progressing her coughing/sputum production and difficulty breathing developing in the last 24-36 hours. She feels like she may have fever. She experienced chills on a few occasions. She also reported as diffuse abdominal pain/crampinghappening to her in the last a couple days. Denies chest pain. She has not had any wheezing recently. She uses supplemental oxygen at home at 2 L/min. We needed to increase it to 3 L/min in the emergency department. 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 She is also treated for atrial fibrillation, COPD, hypertension, hyperlipidemia, GERD, seizure disorder and rheumatoid arthritis (for about 30 years). She is legally blind. PAST FAMILY HX: See below.. PAST SOCIAL HX: See below.. REVIEW OF SYSTEMS: All 14 organ systems were reviewed by me with the patient. Positive and pertinent negative findings are listed above. The rest of organ systems is negative. PHYSICAL EXAM: Skin: Free of rash and discoloration. Eyes: Sclera is white. There is no discharge from eyes. ENMT: Oral/pharyngeal mucosa is normal in appearance. There is no discharge from nose or ears. Respiratory: Normal breath sounds with no crackles and wheezes bilaterally. CV: Heart is irregularly irregular. No audible murmur. GI: Abdomen is flat and soft with no palpable mass or visceromegaly. : There is no tenderness in patient's flanks bilaterally. Neuro exam: He has good strength in upper and lower extremities. He has normal eye movements. Psychiatric: He has normal affect. His thought process is appropriate to the situation. ADDITIONAL DATA: Chest x-ray shows pH of suspected congestive heart failure. CT of abdomen/pelvis did not reveal any particular abnormalities. Her last echocardiogram was done in July 2017. It showed ejection fraction of 45% and mild concentric left ventricular hypertrophy. CBC shows hemoglobin of 9.3 with normal WBC/platelet count. Sodium is 141 with potassium of 3.3. Creatinine is 0.90. Random glucose is 91. Liver function tests/lipase are normal. A/P: Acute on chronic combined systolic and diastolic heart failure. She has already received 1 dose of IV Lasix. I will continue IV Lasix at 40 mg every morning. She was on oral Lasix at home. She is on oral carvedilol. She also suffers from COPD exacerbation. I will offer her Levaquin, prednisone and nebulizer treatments with DuoNeb. She needs supplemental oxygen. Atrial fibrillation. Her pro time is therapeutic. Continue oral Xarelto. Mild anemia. Chronic. Likely due to rheumatoid arthritis/treatment with Imuran. Acute hypokalemia. Likely secondary to treatment with Lasix. She will get scheduled supplemental potassium chloride. Her other problems are listed in past medical history. They seem to be stable/under control. Past Med Surg Social Fam HX - Past Medical History Medical history: atrial fibrillation, CHF, COPD, hyperlipidemia, hypertension, RA, other Additional medical history: legally blind Psychiatric history: anxiety - Past Surgical History Surgical History: cancer surgery, cataract, knee replacement, orthopedic, other, pacemaker/AICD Additional surgical history: back surg. B knee replacement. foot surg. brain tumor removed - Social History Smoking Status: Former smoker Smokeless Tobacco Status: No Alcohol use: none Drug use: none - Family History Mother History Unknown: Yes Adopted: [place]: Michelle Family Member Ethnicity: Non- Living Status: Age at : 47 Cause of : Cancer Hx Family Cardiac Disorders: No Hx Family Respiratory Disorders: No Hx Family Cancer: Yes Hx Family GI Disorders: No Hx Family Endocrine Disorder: No Hx Family Neuromuscular Disorders: No Hx Family Neurologic Disorders: No Hx Family HEENT Disorders: No Hx Family Autoimmune Disorders: No Father Family Member Ethnicity: Non- Living Status: Hx Family Cancer: Yes (Prostate) Brother Family Member Ethnicity: Non- Living Status: Hx Family Cancer: Yes (Lung) Sister Family Member Ethnicity: Non- Living Status: Hx Family Endocrine Disorder: Yes Hx Family Neurologic Disorders: Yes (Alzheimer's disease) Internal Medicine - H&P: Meds Azathioprine [Imuran] 50 mg PO BID 01/03/16 [History] Furosemide [Lasix] 40 mg PO DAILY 01/03/16 [History] Levalbuterol [Xopenex INH] 2 puff PO Q6HR PRN 01/03/16 [History] Losartan Potassium [Cozaar] 100 mg PO DAILY 01/03/16 [History] Lovastatin 40 mg PO HS 01/03/16 [History] Rivaroxaban [Xarelto] 20 mg PO DAILY 01/03/16 [History] Ipratropium/Albuterol Neb [Duoneb] 3 ml IH Q6H PRN 07/02/17 [History] Amitriptyline [Elavil] 25 mg PO HS 10/11/17 [History] Carvedilol [Coreg] 18.75 mg PO BID 10/11/17 [History] Furosemide [Lasix] 20 mg PO QPM 10/11/17 [History] Gabapentin [Neurontin] 300 mg PO HS 10/11/17 [History] LevETIRAcetam [Keppra] 1,000 mg PO BID 10/11/17 [History] Omeprazole [PriLOSEC] 20 mg PO BIDAC 10/11/17 [History] Oxygen 2 l NS AD 10/11/17 [History] hydrALAZINE [HydrALAZINE] 50 mg PO BID tablet 10/17/17 [Rx] Ferrous Sulfate 325 mg PO DAILY 04/30/18 [History] Multivit-Min/Iron/Folic/Lutein [Centrum Silver Women Tablet] 1 each PO DAILY #30 tablet 04/30/18 [Rx] Bimatoprost [Lumigan] 1 drop BOTH EYES QPM 07/07/18 [History] Budesonide/Formoterol 160/4.5 [Symbicort 160/4.5] 2 puff IH BIDR 07/07/18 [H istory] Potassium Chloride [K-Tab ER] 20 meq PO DAILY 07/07/18 [History] Allergy/AdvReac Type Severity Reaction Status Date / Time iodine Allergy Hives Verified 04/30/18 10:02 Penicillins [PCN] Allergy Hives Verified 04/30/18 10:02 ferric carboxymaltose AdvReac Intermediate Chest Pain Verified 04/30/18 10:02 [From Injectafer] IVP DYE Allergy Hives Uncoded 04/30/18 10:02 - Constitutional Vitals: Temp Pulse Resp BP Pulse Ox 97.5 F L 66 16 134/65 97 07/07/18 21:00 07/07/18 21:00 07/07/18 21:00 07/07/18 21:00 07/07/18 21:00 General appearance: Present: A&O X 2, answers questions appropriately Exam: xx Internal Med - H&P Results - Labs CBC & Chem 7: 07/07/18 15:48 07/07/18 15:48 Labs: Short CBC 07/07/18 Range/Units 15:48 WBC 4.3 (4.3-11.1) K/mcL Hgb 9.3 L (11.5-15.4) g/dL Hct 31.8 L (35.3-44.9) % Plt Count 165 (140-400) K/mcL Neutrophils # 3.3 (1.6-8.9) K/mcL BMP 07/07/18 15:48 Sodium 141 Potassium 3.3 L Chloride 100 Carbon Dioxide 35 H BUN 15 Creatinine 0.90 Glucose 91 Calcium 9.0 Cardiac Enzymes 07/07/18 Range/Units 15:48 Troponin I < 0.03 (< 0.04) ng/mL Liver Function 07/07/18 Range/Units 15:48 Total Bilirubin 0.3 (0.3-1.0) mg/dL Direct Bilirubin 0.1 (0.0-0.2) mg/dL AST 16 (13-39) Units/L ALT 10 (7-52) Units/L Alkaline Phosphatase 74 (34-104) Units/L Albumin 3.9 (3.5-5.7) g/dL Urine 07/07/18 Range/Units 17:02 Urine Color Yellow (Yellow) Urine Clarity Clear (Clear) Urine pH 5.0 (5.0-8.0) pH Units Ur Specific [place] 1.014 (1.010-1.025) Urine Protein Negative (Neg-Trace) mg/dL Urine Glucose (UA) Normal (Normal) mg/dL - Impressions ITS Impressions Chest X-Ray 07/07/18 15:33 IMPRESSION: Findings suggest congestive heart failure D/ / Chandrakant Weir MD / Chandrakant Weir MD Interpreting Provider: Chandrakant Weir MD Abdomen/Pelvis CT 07/07/18 15:35 IMPRESSION: 1. No acute abnormality in the abdomen or pelvis on the noncontrast CT. No bowel obstruction. D/ / 07/07/2018 17:00:26 Gildardo Perry MD / tima Interpreting Provider: Gildardo Perry MD - Assessment and plan (1) Acute on chronic combined systolic (congestive) and diastolic (congestive) heart failure Current Visit: Yes Status: Acute (2) COPD exacerbation Current Visit: Yes Status: Acute (3) A-fib Current Visit: Yes Status: Chronic Qualifiers: Atrial fibrillation type: chronic Qualified Code(s): I48.2 - Chronic atrial fibrillation (4) Acute hypokalemia Current Visit: Yes Status: Acute (5) Rheumatoid arthritis Current Visit: Yes Status: Chronic Qualifiers: Rheumatoid arthritis location: unspecified site Rheumatoid factor presence: unspecified presence Qualified Code(s): M06.9 - Rheumatoid arthritis, unspecified - Time Spent With Patient Total time spent is greater than 50% in coordination of care (as documented) at patient's floor/unit and/or counseling patient: 25 - 35 minutes - VTE Reasons for not Prescribing Prophylaxis: Not indicated-Anticoagulated or INR therapeutic Deep Vein Thrombosis/Pulmonary Embolism Present on Admission: No
[2018-07-08] MEDS: Levalbuterol Neb 1.25 MG/3 ML IH SCH ×3 (00:02→10:01)
[2018-07-08] MEDS: levETIRAcetam 250 MG TABLET PO SCH ×3 (00:37→23:14)
[2018-07-08] MEDS: Gabapentin 300 MG CAPSULE PO SCH ×2 (00:38→23:14)
[2018-07-08 01:33] LABS: Hematocrit 32.7 % (35.3-44.9); Hemoglobin 9.6 g/dL (11.5-15.4)
[2018-07-08 01:55] LABS: BUN/Creatinine Ratio 19 (6-26); Blood Urea Nitrogen 17 mg/dL (8-23); Calcium 9.2 mg/dL (8.6-10.3); Carbon Dioxide 34 mEq/L (23-29); Chloride 101 mEq/L (98-107); Glucose 233 mg/dL (70-105); Osmolality,Calculated 301 (280-300); Sodium 141 mEq/L (136-145); eGFR For Non-African Americans > 60 (> 60)
[2018-07-08] MEDS ORDERED: Milk and Molasses Enema 200 ML RC ONE (04:53)
[2018-07-08 06:46] LABS: Adenovirus Not Detected (Not Detect)
[2018-07-08 06:47] LABS: Coronavirus 229E Not Detected (Not Detect); Coronavirus HKU1 Not Detected (Not Detect); Coronavirus NL63 Not Detected (Not Detect); Coronavirus OC43 Not Detected (Not Detect); Human Metapneumovirus Not Detected (Not Detect); Human Rhinovirus/Enterovirus DETECTED (Not Detect)
[2018-07-08 06:48] LABS: Bordetella Pertussis Not Detected (Not Detect); Chlamydophila pneumoniae Not Detected (Not Detect); Influenza A Subtype 2009 H1 Not Detected (Not Detect); Influenza A Untypeable Not Detected (Not Detect); Influenza B Not Detected (Not Detect); Mycoplasma pneumoniae Not Detected (Not Detect); Parainfluenza Virus 1 Not Detected (Not Detect); Parainfluenza Virus 2 Not Detected (Not Detect); Parainfluenza Virus 3 Not Detected (Not Detect); Parainfluenza Virus 4 Not Detected (Not Detect); Respiratory Syncytial Virus Not Detected (Not Detect)
[2018-07-08] MEDS ORDERED: Furosemide 40 MG TABLET PO SCH (09:00)
[2018-07-08] MEDS ORDERED: Furosemide 40 MG/4 ML VIAL IVP SCH (09:00)
[2018-07-08] MEDS ORDERED: NON-FORMULARY MEDICATION 1 EACH EACH (Potassium Chloride [K-Tab Er] 20 MEQ) PO SCH (09:00)
[2018-07-08] MEDS ORDERED: predniSONE 20 MG TABLET PO SCH (09:00)
--- NOTE | 2018-07-08 09:03 | Internal Med Progress Note ---
Hospitalist Progress Note - Encounter Date of Encounter: 07/08/18 Time of Encounter: 11:00 - Subjective Interval History: Patient with a past medical history significant for systolic heart failure with AICD/pacemaker and atrial fibrillation in addition to O2 dependent COPD, presents due to shortness of breath and productive cough suspected to have acute on chronic heart failure and COPD exacerbation. Patient afebrile without leukocytosis on 4 L of nasal cannula for oxygen supplementation - Exam Vitals: Temp Pulse Resp BP Pulse Ox 98.2 F 55 16 118/90 93 07/08/18 07:08 07/08/18 07:08 07/08/18 07:08 07/08/18 07:08 07/08/18 07:08 Exam: xx - Assessment and Plan (1) Systolic CHF, acute on chronic Current Visit: No Status: Acute Assessment and Plan: BMP on admission 198 and chest x-ray with findings suggestive of vascular congestion Echocardiogram on 07/2017 showed LVEF of 45% with mild global left ventricular systolic dysfunction in addition to atypical septal motion consistent with paced rhythm with severely dilated left atrial in addition to mild pulmonary hypertension (2) A-fib Current Visit: Yes Status: Chronic Assessment and Plan: Rate controlled; continue oral anticoagulation was Xarelto (3) COPD exacerbation Current Visit: Yes Status: Acute Assessment and Plan: Secondary to viral upper respiratory infection as patient positive for rhinovir us on respiratory panel Will continue oral prednisone (4) Acute hypokalemia Current Visit: Yes Status: Resolved Assessment and Plan: Resolved after potassium supplementation Will continue to monitor with potassium supplementation as needed (5) Rheumatoid arthritis Current Visit: Yes Status: Chronic Assessment and Plan: Continue scheduled prednisone in addition to Imuran (6) Anemia Current Visit: No Status: Chronic Assessment and Plan: Secondary to iron deficiency Continue home dose of ferrous sulfate DVT Prophylaxis: On Xarelto - Time Spent with Patient Total time spent is greater than 50% in coordination of care (as documented) at patient's floor/unit and/or counseling patient: Internal Medicine: Result - Labs CBC & Chem 7: 07/08/18 00:45 07/08/18 00:45 Labs: Short CBC 07/07/18 07/08/18 Range/Units 15:48 00:45 WBC 4.3 (4.3-11.1) K/mcL Hgb 9.3 L 9.6 L (11.5-15.4) g/dL Hct 31.8 L 32.7 L (35.3-44.9) % Plt Count 165 (140-400) K/mcL Neutrophils # 3.3 (1.6-8.9) K/mcL BMP 07/07/18 07/08/18 15:48 00:45 Sodium 141 141 Potassium 3.3 L 4.0 Chloride 100 101 Carbon Dioxide 35 H 34 H BUN 15 17 Creatinine 0.90 0.88 Glucose 91 233 H Calcium 9.0 9.2 Cardiac Enzymes 07/07/18 Range/Units 15:48 Troponin I < 0.03 (< 0.04) ng/mL Liver Function 07/07/18 Range/Units 15:48 Total Bilirubin 0.3 (0.3-1.0) mg/dL Direct Bilirubin 0.1 (0.0-0.2) mg/dL AST 16 (13-39) Units/L ALT 10 (7-52) Units/L Alkaline Phosphatase 74 (34-104) Units/L Albumin 3.9 (3.5-5.7) g/dL Urine 07/07/18 Range/Units 17:02 Urine Color Yellow (Yellow) Urine Clarity Clear (Clear) Urine pH 5.0 (5.0-8.0) pH Units Ur Specific [place] 1.014 (1.010-1.025) Urine Protein Negative (Neg-Trace) mg/dL Urine Glucose (UA) Normal (Normal) mg/dL - ABG Interpretation ABG results: PT/INR, D-dimer PT 25.4 Seconds (9.4-12.1) H 07/07/18 15:48 - Impressions Impressions Chest X-Ray 07/07/18 15:33 IMPRESSION: Findings suggest congestive heart failure D/ / Chandrakant Weir MD / Chandrakant Weir MD Interpreting Provider: Chandrakant Weir MD Abdomen/Pelvis CT 07/07/18 15:35 IMPRESSION: 1. No acute abnormality in the abdomen or pelvis on the noncontrast CT. No bowel obstruction. D/ / 07/07/2018 17:00:26 Gildardo Perry MD / tima Interpreting Provider: Gildardo Perry MD - VTE Reasons for not Prescribing Prophylaxis: Not indicated-Anticoagulated or INR therapeutic Deep Vein Thrombosis/Pulmonary Embolism Present on Admission: No Consult Discharge Plan - Plan Referrals: Cholo Leslie MD [Primary Care Provider] - (2) A-fib Qualifiers: Atrial fibrillation type: chronic Qualified Code(s): I48.2 - Chronic atrial fibrillation (5) Rheumatoid arthritis Qualifiers: Rheumatoid arthritis location: unspecified site Rheumatoid factor presence: unspecified presence Qualified Code(s): M06.9 - Rheumatoid arthritis, unspecified (6) Anemia Qualifiers: Anemia type: iron deficiency
[2018-07-08] MEDS: *HR* Rivaroxaban 10 MG TABLET PO SCH (09:27)
[2018-07-08] MEDS: Budesonide/Formoterol 160/4.5 1 PUFF INH IH SCH ×2 (10:02→22:48)
[2018-07-08] MEDS: Azithromycin 250 MG TABLET PO SCH (14:06)
[2018-07-08] MEDS: MethylPREDNISolone 40 MG/ML VIAL IVP SCH ×3 (14:06→23:14)
--- NOTE | 2018-07-08 15:13 | Electrocardiograph Report ---
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
[2018-07-08] MEDS: Ipratropium/Albuterol Neb 3 ML IH SCH ×2 (15:55→22:48)
[2018-07-08] MEDS ORDERED: levoFLOXacin 500 MG TABLET PO SCH (17:00)
[2018-07-08] MEDS ORDERED: Furosemide 20 MG TABLET PO SCH (18:00)
[2018-07-09] MEDS: Ipratropium/Albuterol Neb 3 ML IH SCH ×4 (03:38→22:28)
[2018-07-09] MEDS: MethylPREDNISolone 40 MG/ML VIAL IVP SCH ×2 (05:56→12:03)
--- NOTE | 2018-07-09 08:43 | Internal Med Progress Note ---
Hospitalist Progress Note - Encounter Date of Encounter: 07/09/18 Time of Encounter: 11:00 - Subjective Interval History: Patient with a past medical history significant for systolic heart failure with AICD/pacemaker and atrial fibrillation in addition to O2 dependent COPD, presents due to shortness of breath and productive cough suspected to have acute on chronic heart failure and COPD exacerbation. Patient afebrile without leukocytosis on 2 L of nasal cannula for oxygen supplementation - Exam Vitals: Temp Pulse Resp BP Pulse Ox 97.9 F 60 17 158/62 94 07/09/18 07:52 07/09/18 07:52 07/09/18 07:52 07/09/18 07:52 07/09/18 07:52 Exam: Gen.: Nonacute distress, alert and oriented 3 ENT: Mucosal membranes moist Respiratory: Diffuse bilateral expiratory wheezes Cardiovascular: Normal S1 and S2 regular rate rhythm no murmurs rubs or gallops Abdomen: Soft, nontender and nondistended with positive bowel sounds Extremities: No lower extremity edema Skin: Normal color - Assessment and Plan (1) COPD exacerbation Current Visit: Yes Status: Acute Assessment and Plan: Secondary to viral upper respiratory infection as patient positive for rhinovirus on respiratory panel Will continue oral prednisone and azithromycin (2) Systolic CHF, acute on chronic Current Visit: No Status: Acute Assessment and Plan: BMP on admission 198 and chest x-ray with findings suggestive of vascular congestion Echocardiogram on 07/2017 showed LVEF of 45% with mild global left ventricular systolic dysfunction in addition to atypical septal motion consistent with paced rhythm with severely dilated left atrial in addition to mild pulmonary hypertension Was given a one-time dose of IV Lasix on admission and was started on her home dose of furosemide yesterday (3) A-fib Current Visit: Yes Status: Chronic Assessment and Plan: Rate controlled; continue oral anticoagulation was Xarelto (4) Acute hypokalemia Current Visit: Yes Status: Resolved Assessment and Plan: Resolved after potassium supplementation Will continue to monitor with potassium supplementation as needed (5) Rheumatoid arthritis Current Visit: Yes Status: Chronic Assessment and Plan: Continue scheduled prednisone in addition to Imuran (6) Anemia Current Visit: No Status: Chronic Assessment and Plan: Secondary to iron deficiency Continue home dose of ferrous sulfate DVT Prophylaxis: On Xarelto as above - Time Spent with Patient Total time spent is greater than 50% in coordination of care (as documented) at patient's floor/unit and/or counseling patient: Internal Medicine: Result - Labs CBC & Chem 7: 07/09/18 10:23 07/09/18 10:23 - ABG Interpretation ABG results: PT/INR, D-dimer PT 25.4 Seconds (9.4-12.1) H 07/07/18 15:48 - VTE Reasons for not Prescribing Prophylaxis: Not indicated-Anticoagulated or INR therapeutic Deep Vein Thrombosis/Pulmonary Embolism Present on Admission: No Consult Discharge Plan - Plan Referrals: Cholo Leslie MD [Primary Care Provider] - __ (3) A-fib Qualifiers: Atrial fibrillation type: chronic Qualified Code(s): I48.2 - Chronic atrial fibrillation (5) Rheumatoid arthritis Qualifiers: Rheumatoid arthritis location: unspecified site Rheumatoid factor presence: unspecified presence Qualified Code(s): M06.9 - Rheumatoid arthritis, unspecified (6) Anemia Qualifiers: Anemia type: iron deficiency
[2018-07-09] MEDS: Budesonide/Formoterol 160/4.5 1 PUFF INH IH SCH ×2 (10:05→22:28)
[2018-07-09] MEDS: *HR* Rivaroxaban 10 MG TABLET PO SCH (10:16)
[2018-07-09] MEDS: levETIRAcetam 250 MG TABLET PO SCH ×2 (10:16→22:45)
[2018-07-09] MEDS: Furosemide 40 MG TABLET PO SCH (10:16)
[2018-07-09] MEDS: Azithromycin 250 MG TABLET PO SCH (10:17)
[2018-07-09 10:41] LABS: Basophils % 0.1 %; Hematocrit 34.3 % (35.3-44.9); Hemoglobin 10.3 g/dL (11.5-15.4); Immature Granulocytes % 1.6 % (0-4); Lymphocytes # 0.3 K/mcL (0.6-4.6); Lymphocytes % 3.1 %; Mean Corpuscular Hemoglobin 25.6 pg (28.0-33.3); Mean Corpuscular Volume 85.3 fL (83.0-100.0); Mean Platelet Volume 11.2 fL (9.4-12.4); Monocytes # 0.3 K/mcL (0.0-1.3); Monocytes % 3.4 %; Neutrophils # 7.9 K/mcL (1.6-8.9); Platelet Count 179 K/mcL (140-400); Red Blood Count 4.02 M/mcL (3.82-4.97); Red Cell Distribution Width 14.1 % (11.5-14.5); Segmented Neutrophils % 91.8 %
[2018-07-09 10:56] LABS: BUN/Creatinine Ratio 27 (6-26); Blood Urea Nitrogen 21 mg/dL (8-23); Calcium 9.2 mg/dL (8.6-10.3); Carbon Dioxide 32 mEq/L (23-29); Chloride 105 mEq/L (98-107); Glucose 219 mg/dL (70-105); Osmolality,Calculated 308 (280-300); Potassium 4.8 mEq/L (3.5-5.1); Sodium 144 mEq/L (136-145); eGFR For Non-African Americans > 60 (> 60)
[2018-07-09] MEDS: predniSONE 20 MG TABLET PO SCH (17:32)
[2018-07-09] MEDS: Gabapentin 300 MG CAPSULE PO SCH (22:45)
[2018-07-10] MEDS: Ipratropium/Albuterol Neb 3 ML IH SCH ×4 (04:36→22:55)
[2018-07-10] MEDS: levETIRAcetam 250 MG TABLET PO SCH ×2 (09:22→22:14)
[2018-07-10] MEDS: Furosemide 40 MG TABLET PO SCH (09:23)
[2018-07-10] MEDS: *HR* Rivaroxaban 10 MG TABLET PO SCH (09:23)
[2018-07-10] MEDS: predniSONE 20 MG TABLET PO SCH (09:23)
[2018-07-10] MEDS: Azithromycin 250 MG TABLET PO SCH (09:23)
[2018-07-10] MEDS: Budesonide/Formoterol 160/4.5 1 PUFF INH IH SCH ×2 (10:04→22:55)
--- NOTE | 2018-07-10 13:37 | Internal Med Progress Note ---
Hospitalist Progress Note - Encounter Date of Encounter: 07/10/18 Time of Encounter: 13:35 - Subjective Interval History: Patient reports that she is feeling tired. However she is able to breathe better. She still has cough and is concerned that she is not able to bring much sputum up and she feels like she is choking on phlegm. She denies any fevers or chills overnight. Tolerating oral diet well. - Exam Vitals: Temp Pulse Resp BP Pulse Ox 97.8 F 79 19 165/80 96 07/10/18 11:02 07/10/18 11:02 07/10/18 11:02 07/10/18 11:02 07/10/18 11:02 Exam: General: Patient is alert, mild distress, oriented x 3 ENT: Mucous membranes moist Respiratory: Mild bilateral wheezing. Decreased breath sounds at both bases. Cardiovascular: Regular rate and rhythm. s1 and s2 normal trace pedal edema Abdomen: Abdomen is soft, nontender. Bowel sounds are present Musculoskeletal: Spontaneously moving all extremities Skin: warm, dry, intact. Neuro: Alert oriented x 3 normal cranial nerves, no focal deficits - Assessment and Plan (1) A-fib Current Visit: Yes Status: Chronic Assessment and Plan: Rate controlled. On anticoagulation with Xarelto (2) Anemia Current Visit: Yes Status: Chronic Assessment and Plan: Hemoglobin 10.3. Stable. (3) Systolic CHF, acute on chronic Current Visit: Yes Status: Acute Assessment and Plan: Pedal edema improving. Shortness of breath is also improving. Patient is on 2 L O2 supplementation. Continue oral Lasix. (4) Rheumatoid arthritis Current Visit: Yes Status: Chronic Assessment and Plan: On Imuran. (5) COPD exacerbation Current Visit: Yes Status: Acute Assessment and Plan: Continue O2 supplementation. On prednisone taper. Continue bronchodilators. Possible discharge tomorrow if patient continues to do well (6) Acute hypokalemia Current Visit: Yes Status: Resolved DVT Prophylaxis: On Xarelto - Time Spent with Patient Total time spent is greater than 50% in coordination of care (as documented) at patient's floor/unit and/or counseling patient: Internal Medicine: Result - Labs CBC & Chem 7: 07/09/18 10:23 07/09/18 10:23 - ABG Interpretation ABG results: PT/INR, D-dimer PT 25.4 Seconds (9.4-12.1) H 07/07/18 15:48 - VTE Reasons for not Prescribing Prophylaxis: Not indicated-Anticoagulated or INR therapeutic Deep Vein Thrombosis/Pulmonary Embolism Present on Admission: No Consult Discharge Plan - Plan Referrals: Cholo Leslie MD [Primary Care Provider] - (1) A-fib Qualifiers: Atrial fibrillation type: chronic Qualified Code(s): I48.2 - Chronic atrial fibrillation (2) Anemia Qualifiers: Anemia type: iron deficiency Qualified Code(s): D50.8 - Other iron deficiency anemias (4) Rheumatoid arthritis Qualifiers: Rheumatoid arthritis location: unspecified site Rheumatoid factor presence: unspecified presence Qualified Code(s): M06.9 - Rheumatoid arthritis, unspecified
[2018-07-10] MEDS: Gabapentin 300 MG CAPSULE PO SCH (22:14)
[2018-07-11] MEDS: Ipratropium/Albuterol Neb 3 ML IH SCH ×2 (04:04→11:09)
[2018-07-11] MEDS: Azithromycin 250 MG TABLET PO SCH (10:11)
[2018-07-11] MEDS: Furosemide 40 MG TABLET PO SCH (10:12)
[2018-07-11] MEDS: predniSONE 20 MG TABLET PO SCH (10:12)
[2018-07-11] MEDS: levETIRAcetam 250 MG TABLET PO SCH (10:12)
[2018-07-11] MEDS: *HR* Rivaroxaban 10 MG TABLET PO SCH (10:13)
--- NOTE | 2018-07-11 10:47 | Discharge Summary ---
- NOTES TO OUTPATIENT PROVIDER Notes to Outpatient Provider: Patient was hospitalized here with COPD exacerbation and acute on chronic congestive heart failure. Patient was treated with Lasix and bronchodilator nebs along with steroids and azithromycin. She is now doing much better and is clinically stable for discharge home on a steroid taper. She remains on chronic O2 supplementation due to chronic respiratory failure from COPD. Date of Encounter: 07/11/18 Time of Encounter: 10:25 - Discharge Diagnosis (1) Systolic CHF, acute on chronic Priority: Primary Status: Acute (2) COPD exacerbation Priority: Secondary Status: Acute (3) A-fib Priority: Secondary Status: Chronic Qualifiers: Atrial fibrillation type: chronic Qualified Code(s): I48.2 - Chronic atrial fibrillation (4) Anemia Priority: Secondary Status: Chronic Qualifiers: Anemia type: iron deficiency Qualified Code(s): D50.8 - Other iron deficiency anemias (5) Rheumatoid arthritis Priority: Secondary Status: Chronic Qualifiers: Rheumatoid arthritis location: unspecified site Rheumatoid factor presence: unspecified presence Qualified Code(s): M06.9 - Rheumatoid arthritis, unspecified (6) Acute hypokalemia Priority: Secondary Status: Resolved Hospital course: Ms. Durant is a 83 year old female Patient with history of COPD, Afib,CHF, rheumatoid arthritis who was hospitalized here with COPD exacerbation and acute on chronic congestive heart failure. Patient was treated with Lasix and bronchodilator nebs along with steroids and azithromycin. Her respiratory infection panel was positive for entero/rhinovirus. She is now doing much better and is clinically stable for discharge home on a steroid taper. She remains on chronic O2 supplementation due to chronic respiratory failure from COPD. Discharge discussed with: patient - Time Spent with Patient Total time spent providing and/or coordinating discharge services: Greater than 30 minutes (40 min) - Discharge Medications Prescriptions: Azithromycin [Zithromax] 500 mg PO DAILY #2 tablet predniSONE [PredniSONE] 10 mg PO DAILY 8 Days tablet Home Medications: Azathioprine [Imuran] 50 mg PO BID 01/03/16 [History] Furosemide [Lasix] 40 mg PO DAILY 01/03/16 [History] Levalbuterol [Xopenex INH] 2 puff PO Q6HR PRN 01/03/16 [History] Losartan Potassium [Cozaar] 100 mg PO DAILY 01/03/16 [History] Lovastatin 40 mg PO HS 01/03/16 [History] Rivaroxaban [Xarelto] 20 mg PO DAILY 01/03/16 [History] Ipratropium/Albuterol Neb [Duoneb] 3 ml IH Q6H PRN 07/02/17 [History] Amitriptyline [Elavil] 25 mg PO HS 10/11/17 [History] Carvedilol [Coreg] 18.75 mg PO BID 10/11/17 [History] Furosemide [Lasix] 20 mg PO QPM 10/11/17 [History] Gabapentin [Neurontin] 300 mg PO HS 10/11/17 [History] LevETIRAcetam [Keppra] 1,000 mg PO BID 10/11/17 [History] Omeprazole [PriLOSEC] 20 mg PO BIDAC 10/11/17 [History] Oxygen 2 l NS AD 10/11/17 [History] hydrALAZINE [HydrALAZINE] 50 mg PO BID tablet 10/17/17 [Rx] Ferrous Sulfate 325 mg PO DAILY 04/30/18 [History] Multivit-Min/Iron/Folic/Lutein [Centrum Silver Women Tablet] 1 each PO DAILY #30 tablet 04/30/18 [Rx] Bimatoprost [Lumigan] 1 drop BOTH EYES QPM 07/07/18 [History] Budesonide/Formoterol 160/4.5 [Symbicort 160/4.5] 2 puff IH BIDR 07/07/18 [History] Potassium Chloride [K-Tab ER] 20 meq PO DAILY 07/07/18 [History] Azithromycin [Zithromax] 500 mg PO DAILY #2 tablet 07/11/18 [Rx] predniSONE [PredniSONE] 10 mg PO DAILY 8 Days tablet 07/11/18 [Rx] Allergies/Adverse Reactions: Allergy/AdvReac Type Severity Reaction Status Date / Time iodine Allergy Hives Verified 04/30/18 10:02 Penicillins [PCN] Allergy Hives Verified 04/30/18 10:02 ferric carboxymaltose AdvReac Intermediate Chest Pain Verified 04/30/18 10:02 [From Injectafer] IVP DYE Allergy Hives Uncoded 04/30/18 10:02 Date of admission: 07/07/18 21:12 Primary care physician: Cholo Leslie MD Discharging clinician: Moisés Lowry Anticipated date of discharge: 07/11/18 - Constitutional Vitals: Temp Pulse Resp BP Pulse Ox 97.6 F 62 16 168/75 100 07/11/18 06:49 07/11/18 06:49 07/11/18 06:49 07/11/18 06:49 07/11/18 06:49 General appearance: Present: A&O X 2, pleasant, answers questions appropriately Exam: . - Respiratory Respiratory exam: Present: CTAB, prolonged expiratory phase. Absent: accessory muscle use, rales, rhonchi, wheezes - GI/Abdominal GI/Abdominal exam: Present: normal bowel sounds, soft, no peritoneal signs. Absent: distended, tenderness - Extremities Exam Extremities exam: Present: warm, radial pulses palpable and symmetrical. Absent: calf tenderness, cyanotic, pedal edema - Patient Status Disposition: Home Health Service Condition: Good Functional capacity at discharge: independent ambulation Overall status at discharge: patient is progressing back to baseline - Discharge Instructions Instructions: Chronic Obstructive Pulmonary Disease (DC), Heart Failure (DC) Follow Up With: Cholo Leslie MD [Primary Care Provider] - (in 1-2 weeks) - Diet and Activity Activity: increase activity as tolerated Diet: advance to your usual diet - VTE Reasons for not Prescribing Prophylaxis: Not indicated-Anticoagulated or INR therapeutic Deep Vein Thrombosis/Pulmonary Embolism Present on Admission: No
[2018-07-11 11:00] VITALS: BP 153/75
--- NOTE | 2018-07-11 11:03 | Physician Discharge Referral ---
Home Health/Hosp Referral Info Transfer to: Home Health Provider in Charge Post Discharge: PCP - Diagnosis (1) Systolic CHF, acute on chronic Priority: Primary Status: Acute (2) COPD exacerbation Priority: Secondary Status: Acute (3) A-fib Priority: Secondary Status: Chronic (4) Anemia Priority: Secondary Status: Chronic (5) Rheumatoid arthritis Priority: Secondary Status: Chronic (6) Acute hypokalemia Priority: Secondary Status: Resolved - Respiratory Orders Oxygen / L per min (3) Smoking Cessation: Smoking cessation has been advised. For more information, call the [place] Tobacco Quit Line at 8-323-SNDS-NOW. - Diet/Nutrition Diet/Nutrition Orders: Cardiac - Activity Activity Orders: Ambulate, Walker - Services Needed Following services are medically necessary services: Nursing, Home Health Aide - Transfer Medications Prescriptions: Azithromycin [Zithromax] 500 mg PO DAILY #2 tablet predniSONE [PredniSONE] 10 mg PO DAILY 8 Days tablet Home Medications: Azathioprine [Imuran] 50 mg PO BID 01/03/16 [History] Furosemide [Lasix] 40 mg PO DAILY 01/03/16 [History] Levalbuterol [Xopenex INH] 2 puff PO Q6HR PRN 01/03/16 [History] Losartan Potassium [Cozaar] 100 mg PO DAILY 01/03/16 [History] Lovastatin 40 mg PO HS 01/03/16 [History] Rivaroxaban [Xarelto] 20 mg PO DAILY 01/03/16 [History] Ipratropium/Albuterol Neb [Duoneb] 3 ml IH Q6H PRN 07/02/17 [History] Amitriptyline [Elavil] 25 mg PO HS 10/11/17 [History] Carvedilol [Coreg] 18.75 mg PO BID 10/11/17 [History] Furosemide [Lasix] 20 mg PO QPM 10/11/17 [History] Gabapentin [Neurontin] 300 mg PO HS 10/11/17 [History] LevETIRAcetam [Keppra] 1,000 mg PO BID 10/11/17 [History] Omeprazole [PriLOSEC] 20 mg PO BIDAC 10/11/17 [History] Oxygen 2 l NS AD 10/11/17 [History] hydrALAZINE [HydrALAZINE] 50 mg PO BID tablet 10/17/17 [Rx] Ferrous Sulfate 325 mg PO DAILY 04/30/18 [History] Multivit-Min/Iron/Folic/Lutein [Centrum Silver Women Tablet] 1 each PO DAILY #30 tablet 04/30/18 [Rx] Bimatoprost [Lumigan] 1 drop BOTH EYES QPM 07/07/18 [History] Budesonide/Formoterol 160/4.5 [Symbicort 160/4.5] 2 puff IH BIDR 07/07/18 [History] Potassium Chloride [K-Tab ER] 20 meq PO DAILY 07/07/18 [History] Azithromycin [Zithromax] 500 mg PO DAILY #2 tablet 07/11/18 [Rx] predniSONE [PredniSONE] 10 mg PO DAILY 8 Days tablet 07/11/18 [Rx] Allergies/Adverse Reactions: Allergy/AdvReac Type Severity Reaction Status Date / Time iodine Allergy Hives Verified 04/30/18 10:02 Penicillins [PCN] Allergy Hives Verified 04/30/18 10:02 ferric carboxymaltose AdvReac Intermediate Chest Pain Verified 04/30/18 10:02 [From Injectafer] IVP DYE Allergy Hives Uncoded 04/30/18 10:02 Certification: Further, I certify that my clinical findings support that this patient is homebound (i.e. absences from home require considerable and taxing effort and are for medical reasons or baptism services or infrequently or short duration when for other reasons) because: Homebound Reason: Patient requires assistance of a person or device to safely leave home Attestation: My signature below is to certify that this patient is under my care and that I, or nurse practitioner, or a physician's high school assistant football coach working with me, has a [id number] encounter with this patient.
[2018-07-11] MEDS: Budesonide/Formoterol 160/4.5 1 PUFF INH IH SCH (11:11)
== END 2018-07-11 11:58 | disposition home health service (06) | DRG 292 ==
LOC: EMEROOARM 15:22 → 2ANU 15:22 → SUATTDRO 21:12
PROVIDERS: ADMIT Internal Medicine; ATTEND Internal Medicine

== ENCOUNTER 2019-04-07 12:33 | Inpatient (IN) ==
[2019-04-07 13:29] LABS: Basophils % 0.6 %; Eosinophils # 0.1 K/mcL (0.0-0.6); Hematocrit 33.2 % (35.3-44.9); Hemoglobin 9.7 g/dL (11.5-15.4); Immature Granulocytes % 0.3 % (0-4); Lymphocytes # 0.7 K/mcL (0.6-4.6); Lymphocytes % 21.1 %; Mean Corpuscular HGB Conc 29.2 g/dL (31.6-35.5); Mean Corpuscular Hemoglobin 25.5 pg (28.0-33.3); Mean Corpuscular Volume 87.1 fL (83.0-100.0); Mean Platelet Volume 11.3 fL (9.4-12.4); Monocytes # 0.4 K/mcL (0.0-1.3); Monocytes % 10.1 %; Neutrophils # 2.3 K/mcL (1.6-8.9); Platelet Count 149 K/mcL (140-400); Red Blood Count 3.81 M/mcL (3.82-4.97); Red Cell Distribution Width 15.8 % (11.5-14.5); Segmented Neutrophils % 65.9 %; White Blood Count 3.5 K/mcL (4.3-11.1)
[2019-04-07 13:37] LABS: Prothrombin Time 34.1 Seconds (9.4-12.1)
[2019-04-07 14:39] LABS: Alanine Aminotransferase 5 Units/L (7-52); Albumin 4.1 g/dL (3.5-5.7); Albumin/Globulin Ratio 1.4 (1.1-2.2); Alkaline Phosphatase 87 Units/L (34-104); Aspartate Amino Transferase 10 Units/L (13-39); BUN/Creatinine Ratio 17 (6-26); Bilirubin,Direct 0.1 mg/dL (0.0-0.2); Bilirubin,Indirect 0.6 mg/dL (0.0-1.2); Bilirubin,Total 0.7 mg/dL (0.3-1.0); Blood Urea Nitrogen 14 mg/dL (8-23); Calcium 9.5 mg/dL (8.6-10.3); Carbon Dioxide 39 mEq/L (23-29); Chloride 101 mEq/L (98-107); Globulin 2.9 g/dL (2.4-3.5); Glucose 84 mg/dL (70-105); Osmolality,Calculated 300 (280-300); Potassium 3.4 mEq/L (3.5-5.1); Sodium 145 mEq/L (136-145); eGFR For African Americans > 60 (> 60); eGFR For Non-African Americans > 60 (> 60)
[2019-04-07 14:41] LABS: Troponin I < 0.03 ng/mL (< 0.04)
[2019-04-07] MEDS ORDERED: methylPREDNISolone 125 MG/2 ML VIAL IVP ONE (14:49)
[2019-04-07] MEDS ORDERED: Furosemide 40 MG/4 ML VIAL IVP ONE (14:49)
[2019-04-07] MEDS ORDERED: Naloxone 0.4 MG/ML INJ IVP PRN (16:10)
[2019-04-07] MEDS: Ipratropium/Albuterol Neb 3 ML IH PRN (19:58)
[2019-04-07] MEDS: Azithromycin 500 MG in 0.9 % Sodium Chloride 250 ML IVPB SCH (20:25)
[2019-04-07] MEDS: Isosorbide MONOnitrate (24 HR) 30 MG TAB.ER.24H PO SCH (21:31)
[2019-04-07] MEDS: levETIRAcetam 250 MG TABLET PO SCH (21:32)
[2019-04-08] MEDS: MethylPREDNISolone 40 MG/ML VIAL IVP SCH ×3 (00:20→17:06)
[2019-04-08] MEDS: Ipratropium/Albuterol Neb 3 ML IH PRN ×2 (04:12→14:10)
[2019-04-08 06:00] LABS: Hematocrit 34.4 % (35.3-44.9); Hemoglobin 10.3 g/dL (11.5-15.4); Immature Granulocytes % 0.6 % (0-4); Lymphocytes # 0.2 K/mcL (0.6-4.6); Lymphocytes % 5.4 %; Mean Corpuscular HGB Conc 29.9 g/dL (31.6-35.5); Mean Corpuscular Hemoglobin 25.8 pg (28.0-33.3); Mean Corpuscular Volume 86.2 fL (83.0-100.0); Mean Platelet Volume 12.5 fL (9.4-12.4); Monocytes # 0.1 K/mcL (0.0-1.3); Monocytes % 1.4 %; Platelet Count 146 K/mcL (140-400); Red Blood Count 3.99 M/mcL (3.82-4.97); Red Cell Distribution Width 15.5 % (11.5-14.5); Segmented Neutrophils % 92.6 %; White Blood Count 3.5 K/mcL (4.3-11.1)
[2019-04-08 06:07] LABS: BUN/Creatinine Ratio 19 (6-26); Blood Urea Nitrogen 16 mg/dL (8-23); Calcium 9.2 mg/dL (8.6-10.3); Carbon Dioxide 32 mEq/L (23-29); Chloride 100 mEq/L (98-107); Glucose 185 mg/dL (70-105); Neutrophils # 3.2 K/mcL (1.6-8.9); Osmolality,Calculated 298 (280-300); Potassium 3.5 mEq/L (3.5-5.1); Sodium 141 mEq/L (136-145); eGFR For African Americans > 60 (> 60); eGFR For Non-African Americans > 60 (> 60)
[2019-04-08 07:48] LABS: Platelet Estimate Normal (Normal)
[2019-04-08] MEDS: *HR* Rivaroxaban 10 MG TABLET PO SCH (08:30)
[2019-04-08] MEDS: Furosemide 40 MG TABLET PO SCH (08:31)
[2019-04-08] MEDS: levETIRAcetam 250 MG TABLET PO SCH ×2 (08:31→20:18)
[2019-04-08] MEDS ORDERED: Acetaminophen 325 MG TABLET PO ONE (10:31)
[2019-04-08] MEDS: Azithromycin 500 MG in 0.9 % Sodium Chloride 250 ML IVPB SCH (17:06)
[2019-04-08] MEDS: Latanoprost 2.5 ML BOTTLE BOTH EYES SCH (17:14)
[2019-04-08] MEDS: Isosorbide MONOnitrate (24 HR) 30 MG TAB.ER.24H PO SCH (20:18)
[2019-04-09] MEDS: MethylPREDNISolone 40 MG/ML VIAL IVP SCH ×3 (00:25→20:41)
[2019-04-09 01:13] LABS: Hematocrit 30.7 % (35.3-44.9); Hemoglobin 9.2 g/dL (11.5-15.4); Immature Granulocytes % 0.3 % (0-4); Lymphocytes # 0.3 K/mcL (0.6-4.6); Lymphocytes % 3.8 %; Mean Corpuscular Hemoglobin 26.3 pg (28.0-33.3); Mean Corpuscular Volume 87.7 fL (83.0-100.0); Mean Platelet Volume 12.3 fL (9.4-12.4); Monocytes # 0.3 K/mcL (0.0-1.3); Monocytes % 3.8 %; Neutrophils # 6.4 K/mcL (1.6-8.9); Platelet Count 157 K/mcL (140-400); Red Cell Distribution Width 15.7 % (11.5-14.5); Segmented Neutrophils % 92.1 %
[2019-04-09 01:16] LABS: White Blood Count 6.9 K/mcL (4.3-11.1)
[2019-04-09] MEDS: Ipratropium/Albuterol Neb 3 ML IH PRN ×2 (01:20→08:00)
[2019-04-09 01:38] LABS: BUN/Creatinine Ratio 27 (6-26); Blood Urea Nitrogen 22 mg/dL (8-23); Calcium 8.6 mg/dL (8.6-10.3); Carbon Dioxide 31 mEq/L (23-29); Chloride 101 mEq/L (98-107); Glucose 157 mg/dL (70-105); Osmolality,Calculated 299 (280-300); Potassium 4.1 mEq/L (3.5-5.1); Sodium 141 mEq/L (136-145); eGFR For African Americans > 60 (> 60); eGFR For Non-African Americans > 60 (> 60)
[2019-04-09] MEDS: *HR* Rivaroxaban 10 MG TABLET PO SCH (07:55)
[2019-04-09] MEDS: levETIRAcetam 250 MG TABLET PO SCH ×2 (07:55→20:41)
[2019-04-09] MEDS: Multivit/Ca/Min/Fe/FA 1 TAB TABLET PO SCH (07:56)
[2019-04-09] MEDS: Famotidine 20 MG TABLET PO SCH (07:56)
[2019-04-09] MEDS: Furosemide 40 MG TABLET PO SCH (07:56)
[2019-04-09] MEDS: Acetaminophen 325 MG TABLET PO PRN ×2 (15:37→22:35)
[2019-04-09] MEDS: Artificial Tears SOLN 15 ML BOTTLE BOTH EYES SCH ×2 (16:05→20:59)
[2019-04-09 16:37] LABS: Adenovirus Not Detected (Not Detect); Bordetella Pertussis Not Detected (Not Detect); Chlamydophila pneumoniae Not Detected (Not Detect); Coronavirus 229E Not Detected (Not Detect); Coronavirus HKU1 Not Detected (Not Detect); Coronavirus NL63 Not Detected (Not Detect); Coronavirus OC43 Not Detected (Not Detect); Human Metapneumovirus Not Detected (Not Detect); Human Rhinovirus/Enterovirus Not Detected (Not Detect); Influenza A Subtype 2009 H1 Not Detected (Not Detect); Influenza A Untypeable Not Detected (Not Detect); Influenza B Not Detected (Not Detect); Mycoplasma pneumoniae Not Detected (Not Detect); Parainfluenza Virus 1 Not Detected (Not Detect); Parainfluenza Virus 2 Not Detected (Not Detect); Parainfluenza Virus 3 Not Detected (Not Detect); Parainfluenza Virus 4 Not Detected (Not Detect); Respiratory Syncytial Virus Not Detected (Not Detect)
[2019-04-09] MEDS: Azithromycin 500 MG in 0.9 % Sodium Chloride 250 ML IVPB SCH (17:04)
[2019-04-09] MEDS: Latanoprost 2.5 ML BOTTLE BOTH EYES SCH (20:41)
[2019-04-09] MEDS: Isosorbide MONOnitrate (24 HR) 30 MG TAB.ER.24H PO SCH (20:43)
[2019-04-10] MEDS: Ipratropium/Albuterol Neb 3 ML IH PRN (03:18)
[2019-04-10 04:38] LABS: Hematocrit 32.8 % (35.3-44.9); Hemoglobin 9.8 g/dL (11.5-15.4); Immature Granulocytes % 0.5 % (0-4); Lymphocytes # 0.3 K/mcL (0.6-4.6); Lymphocytes % 3.9 %; Mean Corpuscular HGB Conc 29.9 g/dL (31.6-35.5); Mean Corpuscular Hemoglobin 26.6 pg (28.0-33.3); Mean Corpuscular Volume 89.1 fL (83.0-100.0); Mean Platelet Volume 12.2 fL (9.4-12.4); Monocytes # 0.2 K/mcL (0.0-1.3); Monocytes % 2.3 %; Neutrophils # 6.1 K/mcL (1.6-8.9); Platelet Count 150 K/mcL (140-400); Red Blood Count 3.68 M/mcL (3.82-4.97); Red Cell Distribution Width 15.8 % (11.5-14.5); Segmented Neutrophils % 93.3 %; White Blood Count 6.5 K/mcL (4.3-11.1)
[2019-04-10 04:55] LABS: BUN/Creatinine Ratio 33 (6-26); Blood Urea Nitrogen 24 mg/dL (8-23); Calcium 8.9 mg/dL (8.6-10.3); Carbon Dioxide 36 mEq/L (23-29); Chloride 101 mEq/L (98-107); Glucose 146 mg/dL (70-105); Osmolality,Calculated 301 (280-300); Potassium 3.6 mEq/L (3.5-5.1); Sodium 142 mEq/L (136-145); eGFR For African Americans > 60 (> 60); eGFR For Non-African Americans > 60 (> 60)
[2019-04-10] MEDS: *HR* Rivaroxaban 10 MG TABLET PO SCH (08:09)
[2019-04-10] MEDS: Famotidine 20 MG TABLET PO SCH (08:09)
[2019-04-10] MEDS: amLODIPine 5 MG TABLET PO SCH (08:10)
[2019-04-10] MEDS: MethylPREDNISolone 40 MG/ML VIAL IVP SCH ×2 (08:10→20:11)
[2019-04-10] MEDS: Artificial Tears SOLN 15 ML BOTTLE BOTH EYES SCH ×4 (08:10→20:15)
[2019-04-10] MEDS: levETIRAcetam 250 MG TABLET PO SCH ×2 (08:10→20:11)
[2019-04-10] MEDS: Multivit/Ca/Min/Fe/FA 1 TAB TABLET PO SCH (08:10)
[2019-04-10] MEDS: Furosemide 40 MG TABLET PO SCH (08:10)
[2019-04-10] MEDS: Furosemide 40 MG/4 ML VIAL IVP SCH (11:19)
[2019-04-10] MEDS: Azithromycin 500 MG in 0.9 % Sodium Chloride 250 ML IVPB SCH (16:35)
[2019-04-10] MEDS: Latanoprost 2.5 ML BOTTLE BOTH EYES SCH (20:09)
[2019-04-10] MEDS: Isosorbide MONOnitrate (24 HR) 30 MG TAB.ER.24H PO SCH (20:10)
[2019-04-10] MEDS: Acetaminophen 325 MG TABLET PO PRN (20:10)
[2019-04-10] MEDS: Bisacodyl 10 MG RECTAL SUPPOSITORY RC SCH (20:12)
[2019-04-11] MEDS: Ipratropium/Albuterol Neb 3 ML IH PRN (00:08)
[2019-04-11 01:49] LABS: White Blood Count 6.1 K/mcL (4.3-11.1)
[2019-04-11 01:50] LABS: Hematocrit 34.4 % (35.3-44.9); Hemoglobin 10.1 g/dL (11.5-15.4); Immature Granulocytes % 0.5 % (0-4); Lymphocytes # 0.2 K/mcL (0.6-4.6); Lymphocytes % 3.3 %; Mean Corpuscular HGB Conc 29.4 g/dL (31.6-35.5); Mean Corpuscular Hemoglobin 25.8 pg (28.0-33.3); Mean Corpuscular Volume 87.8 fL (83.0-100.0); Mean Platelet Volume 11.8 fL (9.4-12.4); Monocytes # 0.2 K/mcL (0.0-1.3); Monocytes % 3.3 %; Neutrophils # 5.6 K/mcL (1.6-8.9); Platelet Count 162 K/mcL (140-400); Red Blood Count 3.92 M/mcL (3.82-4.97); Red Cell Distribution Width 15.8 % (11.5-14.5); Segmented Neutrophils % 92.9 %
[2019-04-11 02:05] LABS: BUN/Creatinine Ratio 36 (6-26); Blood Urea Nitrogen 28 mg/dL (8-23); Calcium 8.8 mg/dL (8.6-10.3); Carbon Dioxide 38 mEq/L (23-29); Chloride 98 mEq/L (98-107); Glucose 205 mg/dL (70-105); Magnesium 2.2 mg/dL (1.6-2.6); Osmolality,Calculated 301 (280-300); Potassium 3.8 mEq/L (3.5-5.1); Sodium 140 mEq/L (136-145); eGFR For African Americans > 60 (> 60); eGFR For Non-African Americans > 60 (> 60)
[2019-04-11] MEDS: Bisacodyl 10 MG RECTAL SUPPOSITORY RC SCH ×2 (04:30→20:48)
[2019-04-11] MEDS: Furosemide 40 MG/4 ML VIAL IVP SCH (09:03)
[2019-04-11] MEDS: *HR* Rivaroxaban 10 MG TABLET PO SCH (09:04)
[2019-04-11] MEDS: Famotidine 20 MG TABLET PO SCH (09:04)
[2019-04-11] MEDS: MethylPREDNISolone 40 MG/ML VIAL IVP SCH ×2 (09:04→20:46)
[2019-04-11] MEDS: Multivit/Ca/Min/Fe/FA 1 TAB TABLET PO SCH (09:05)
[2019-04-11] MEDS: levETIRAcetam 250 MG TABLET PO SCH ×2 (09:05→20:50)
[2019-04-11] MEDS: amLODIPine 5 MG TABLET PO SCH (09:06)
[2019-04-11] MEDS: Artificial Tears SOLN 15 ML BOTTLE BOTH EYES SCH ×4 (09:09→20:47)
[2019-04-11 12:06] LABS: Bilirubin,Urine Negative (Negative); Blood,Urine Negative (Negative); Clarity,Urine Clear (Clear); Color,Urine Yellow (Yellow); Glucose,Urine (UA) Normal (Normal); Ketones,Urine Negative (Negative); Leukocyte Esterase,Urine Negative (Negative); Nitrite,Urine Negative (Negative); Protein,Urine Negative (Neg-Trace); Specific Gravity,Urine 1.011 (1.010-1.025); Urobilinogen,Urine Normal (Normal)
[2019-04-11] MEDS: Azithromycin 500 MG in 0.9 % Sodium Chloride 250 ML IVPB SCH (16:41)
[2019-04-11] MEDS: Latanoprost 2.5 ML BOTTLE BOTH EYES SCH ×4 (20:47→21:22)
[2019-04-11] MEDS: Isosorbide MONOnitrate (24 HR) 30 MG TAB.ER.24H PO SCH (20:48)
[2019-04-12 05:58] LABS: Hematocrit 35.8 % (35.3-44.9); Hemoglobin 10.6 g/dL (11.5-15.4); Immature Granulocytes % 0.5 % (0-4); Lymphocytes # 0.2 K/mcL (0.6-4.6); Lymphocytes % 3.5 %; Mean Corpuscular HGB Conc 29.6 g/dL (31.6-35.5); Mean Corpuscular Hemoglobin 25.7 pg (28.0-33.3); Mean Corpuscular Volume 86.7 fL (83.0-100.0); Mean Platelet Volume 11.8 fL (9.4-12.4); Monocytes # 0.2 K/mcL (0.0-1.3); Monocytes % 3.8 %; Neutrophils # 5.8 K/mcL (1.6-8.9); Platelet Count 195 K/mcL (140-400); Red Blood Count 4.13 M/mcL (3.82-4.97); Red Cell Distribution Width 15.7 % (11.5-14.5); Segmented Neutrophils % 92.2 %; White Blood Count 6.3 K/mcL (4.3-11.1)
[2019-04-12 06:21] LABS: Alanine Aminotransferase 13 Units/L (7-52); Albumin 3.3 g/dL (3.5-5.7); Albumin/Globulin Ratio 1.3 (1.1-2.2); Alkaline Phosphatase 66 Units/L (34-104); Aspartate Amino Transferase 13 Units/L (13-39); BUN/Creatinine Ratio 32 (6-26); Bilirubin,Total 0.4 mg/dL (0.3-1.0); Blood Urea Nitrogen 29 mg/dL (8-23); Calcium 8.8 mg/dL (8.6-10.3); Carbon Dioxide 41 mEq/L (23-29); Chloride 94 mEq/L (98-107); Globulin 2.5 g/dL (2.4-3.5); Glucose 187 mg/dL (70-105); Osmolality,Calculated 301 (280-300); Potassium 4.1 mEq/L (3.5-5.1); Sodium 140 mEq/L (136-145); Total Protein 5.8 g/dL (6.4-8.9); eGFR For African Americans > 60 (> 60); eGFR For Non-African Americans 58 (> 60)
[2019-04-12 07:29] VITALS: BP 128/68
[2019-04-12] MEDS: *HR* Rivaroxaban 10 MG TABLET PO SCH (10:54)
[2019-04-12] MEDS: amLODIPine 5 MG TABLET PO SCH (10:54)
[2019-04-12] MEDS: Famotidine 20 MG TABLET PO SCH (10:55)
[2019-04-12] MEDS: levETIRAcetam 250 MG TABLET PO SCH (10:55)
[2019-04-12] MEDS: Multivit/Ca/Min/Fe/FA 1 TAB TABLET PO SCH (10:55)
[2019-04-12] MEDS: Artificial Tears SOLN 15 ML BOTTLE BOTH EYES SCH (10:55)
[2019-04-12] MEDS: MethylPREDNISolone 40 MG/ML VIAL IVP SCH (10:56)
== END 2019-04-12 11:18 | disposition home health service (06) | DRG 190 ==
LOC: SUATTDRO → 3BNU 12:33 → EMEROOARM 12:33 → SUATTDRO 16:27 → 3BNU 17:24 → SUATTDRO 04-08 15:17
PROVIDERS: ADMIT Internal Medicine; ATTEND Internal Medicine

== ENCOUNTER 2019-05-02 13:02 | Observation (INO) ==
[2019-05-02] MEDS ORDERED: Aspirin 81 MG TAB.CHEW PO ONE (13:16)
[2019-05-02] MEDS ORDERED: Nitroglycerin 0.4 MG TAB.SUBL SL PRN (13:16)
[2019-05-02] MEDS ORDERED: methylPREDNISolone 125 MG/2 ML VIAL IVP ONE (13:17)
[2019-05-02] MEDS ORDERED: Ondansetron ODT 4 MG TAB.RAPDIS SL ONE (13:34)
[2019-05-02] MEDS: Ipratropium/Albuterol Neb 3 ML IH ONE (13:35)
[2019-05-02 13:39] LABS: Basophils % 0.7 %; Eosinophils # 0.1 K/mcL (0.0-0.6); Eosinophils % 4.7 %; Hematocrit 32.5 % (35.3-44.9); Hemoglobin 9.6 g/dL (11.5-15.4); Immature Granulocytes % 0.3 % (0-4); Lymphocytes # 0.7 K/mcL (0.6-4.6); Lymphocytes % 22.9 %; Mean Corpuscular HGB Conc 29.5 g/dL (31.6-35.5); Mean Corpuscular Hemoglobin 26.7 pg (28.0-33.3); Mean Corpuscular Volume 90.5 fL (83.0-100.0); Mean Platelet Volume 9.9 fL (9.4-12.4); Monocytes # 0.3 K/mcL (0.0-1.3); Monocytes % 8.6 %; Neutrophils # 1.9 K/mcL (1.6-8.9); Platelet Count 132 K/mcL (140-400); Red Blood Count 3.59 M/mcL (3.82-4.97); Red Cell Distribution Width 15.3 % (11.5-14.5); Segmented Neutrophils % 62.8 %
[2019-05-02 13:45] LABS: INR 1.9; Prothrombin Time 21.8 Seconds (9.4-12.1)
[2019-05-02 13:48] LABS: Activated Partial Thrombo Time 37.2 Seconds (26.0-36.0)
[2019-05-02 14:05] LABS: BUN/Creatinine Ratio 15 (6-26); Blood Urea Nitrogen 13 mg/dL (8-23); Calcium 9.2 mg/dL (8.6-10.3); Carbon Dioxide 36 mEq/L (23-29); Chloride 99 mEq/L (98-107); Glucose 93 mg/dL (70-105); Osmolality,Calculated 294 (280-300); Sodium 142 mEq/L (136-145); Troponin I < 0.03 ng/mL (< 0.04); eGFR For African Americans > 60 (> 60); eGFR For Non-African Americans > 60 (> 60)
[2019-05-02] MEDS ORDERED: 0.9 % Sodium Chloride 500 ML IVC ONE (14:52)
[2019-05-02] MEDS ORDERED: Nitroglycerin 25 MG/250 ML INFUS..BTL IVC SCH (15:00)
[2019-05-02 15:36] LABS: Bilirubin,Urine Negative (Negative); Blood,Urine Negative (Negative); Clarity,Urine Clear (Clear); Color,Urine Yellow (Yellow); Glucose,Urine (UA) Normal (Normal); Ketones,Urine Negative (Negative); Leukocyte Esterase,Urine Trace (Negative); Nitrite,Urine Negative (Negative); Protein,Urine Negative (Neg-Trace); Specific Gravity,Urine 1.007 (1.010-1.025); Urobilinogen,Urine Normal (Normal)
[2019-05-02 15:38] LABS: Bacteria,Urine None Seen per hpf (None-Few); Hyaline Casts,Urine None Seen per lpf (None-Few); RBC,Urine 0-3 per hpf (0-3); Squamous Epithelial Cell,Urine Many per lpf (None-Few); WBC,Urine 0-3 per hpf (0-3)
[2019-05-02] MEDS ORDERED: Ondansetron ODT 4 MG TAB.RAPDIS SL PRN (16:09)
[2019-05-02] MEDS ORDERED: Naloxone 0.4 MG/ML INJ IVP PRN (16:09)
[2019-05-02] MEDS ORDERED: Ibuprofen 800 MG TABLET PO ONE (16:49)
[2019-05-02] MEDS ORDERED: Ipratropium/Albuterol Neb 3 ML IH PRN (16:55)
[2019-05-02] MEDS ORDERED: D5% in Water 1,000 ML IVC PRN (17:00)
[2019-05-02] MEDS ORDERED: *HR* Dextrose 50 % in Water (Syg) 50 ML SYRINGE IVP PRN (17:00)
[2019-05-02] MEDS ORDERED: Dextrose Gel 15 GM/37.5 ML TUBE PO PRN ×2 (17:00)
[2019-05-02] MEDS ORDERED: Insulin LISPRO 300 UNITS/3 ML VIAL SQ SCH (17:01)
[2019-05-02] MEDS: Artificial Tears SOLN 15 ML BOTTLE BOTH EYES SCH ×2 (18:03→21:47)
[2019-05-02] MEDS ORDERED: Perflutren Lipid Microsphere 1.3 ML in 0.9 % Sodium Chloride 8.7 ML IVP ONE (19:30)
[2019-05-02] MEDS: Isosorbide MONOnitrate (24 HR) 30 MG TAB.ER.24H PO SCH (21:47)
[2019-05-02] MEDS: levETIRAcetam 250 MG TABLET PO SCH (21:48)
[2019-05-02] MEDS: Melatonin 3 MG TABLET PO SCH (21:49)
[2019-05-02] MEDS: Latanoprost 2.5 ML BOTTLE BOTH EYES SCH (21:49)
[2019-05-02] MEDS ORDERED: Levalbuterol 1 PUFF INHALER IH PRN (22:00)
[2019-05-03] MEDS: Insulin LISPRO 300 UNITS/3 ML VIAL SQ SCH ×4 (02:54→19:34)
[2019-05-03] MEDS: Acetaminophen 325 MG TABLET PO PRN ×2 (05:22→18:56)
[2019-05-03 05:45] LABS: Hematocrit 33.2 % (35.3-44.9); Mean Corpuscular HGB Conc 30.1 g/dL (31.6-35.5); Mean Corpuscular Hemoglobin 26.7 pg (28.0-33.3); Mean Corpuscular Volume 88.8 fL (83.0-100.0); Platelet Count 150 K/mcL (140-400); Red Blood Count 3.74 M/mcL (3.82-4.97); Red Cell Distribution Width 14.7 % (11.5-14.5); White Blood Count 4.8 K/mcL (4.3-11.1)
[2019-05-03 06:06] LABS: BUN/Creatinine Ratio 17 (6-26); Blood Urea Nitrogen 14 mg/dL (8-23); Calcium 9.2 mg/dL (8.6-10.3); Carbon Dioxide 32 mEq/L (23-29); Chloride 100 mEq/L (98-107); Glucose 147 mg/dL (70-105); Magnesium 1.9 mg/dL (1.6-2.6); Osmolality,Calculated 291 (280-300); Potassium 4.1 mEq/L (3.5-5.1); Sodium 139 mEq/L (136-145); eGFR For African Americans > 60 (> 60); eGFR For Non-African Americans > 60 (> 60)
[2019-05-03] MEDS ORDERED: Regadenoson 0.4 MG/5 ML SYRINGE IVP ONE (06:52)
[2019-05-03] MEDS ORDERED: Ibuprofen 400 MG TABLET PO ONE (11:09)
[2019-05-03] MEDS: Furosemide 40 MG TABLET PO SCH (11:57)
[2019-05-03] MEDS: levETIRAcetam 250 MG TABLET PO SCH ×2 (11:57→21:18)
[2019-05-03] MEDS: amLODIPine 5 MG TABLET PO SCH (11:57)
[2019-05-03] MEDS: Cholecalciferol (D-3) 1,000 UNIT (25MCG) TABLET PO SCH (11:58)
[2019-05-03] MEDS: Iron Polysaccharide Complex 150 MG CAPSULE PO SCH (11:58)
[2019-05-03] MEDS: Aspirin Enteric Coated 81 MG Tablet PO SCH (11:59)
[2019-05-03] MEDS: Artificial Tears SOLN 15 ML BOTTLE BOTH EYES SCH ×4 (11:59→22:09)
[2019-05-03] MEDS: Pantoprazole 40 MG VIAL IVP SCH (11:59)
[2019-05-03] MEDS: Famotidine 20 MG TABLET PO SCH (11:59)
[2019-05-03] MEDS ORDERED: traMADol 50 MG TABLET PO ONE (15:18)
[2019-05-03] MEDS ORDERED: *HR* Rivaroxaban 10 MG TABLET PO SCH (17:00)
[2019-05-03] MEDS ORDERED: traMADol 50 MG TABLET PO PRN (18:37)
[2019-05-03] MEDS: Melatonin 3 MG TABLET PO SCH (21:18)
[2019-05-03] MEDS: Isosorbide MONOnitrate (24 HR) 30 MG TAB.ER.24H PO SCH (21:19)
[2019-05-03] MEDS: Latanoprost 2.5 ML BOTTLE BOTH EYES SCH (21:33)
[2019-05-04 07:06] VITALS: BP 125/67
[2019-05-04] MEDS ORDERED: Insulin LISPRO 300 UNITS/3 ML VIAL SQ SCH ×2 (07:30→21:00)
[2019-05-04] MEDS: Iron Polysaccharide Complex 150 MG CAPSULE PO SCH (08:53)
[2019-05-04] MEDS: amLODIPine 5 MG TABLET PO SCH (08:53)
[2019-05-04] MEDS: levETIRAcetam 250 MG TABLET PO SCH (08:53)
[2019-05-04] MEDS: Famotidine 20 MG TABLET PO SCH (08:54)
[2019-05-04] MEDS: Furosemide 40 MG TABLET PO SCH (08:54)
[2019-05-04] MEDS: Cholecalciferol (D-3) 1,000 UNIT (25MCG) TABLET PO SCH (08:54)
[2019-05-04] MEDS: Aspirin Enteric Coated 81 MG Tablet PO SCH (08:54)
[2019-05-04] MEDS: Pantoprazole 40 MG VIAL IVP SCH (08:55)
[2019-05-04] MEDS: Artificial Tears SOLN 15 ML BOTTLE BOTH EYES SCH (08:55)
== END 2019-05-04 11:37 | disposition home health service (06) ==
LOC: EMEROOARM 13:02 → 3BNU 13:02 → SUATTDRO 15:52 → 3BNU 18:55
PROVIDERS: ADMIT Internal Medicine; ATTEND Internal Medicine

== ENCOUNTER 2020-03-28 19:24 | Inpatient (IN) ==
[2020-03-28 20:13] LABS: Basophils % 0.6 %; Eosinophils # 0.1 K/mcL (0.0-0.6); Eosinophils % 3.1 %; Hematocrit 32.3 % (35.3-44.9); Hemoglobin 9.6 g/dL (11.5-15.4); Immature Granulocytes % 0.3 % (0-4); Lymphocytes # 0.6 K/mcL (0.6-4.6); Lymphocytes % 17.7 %; Mean Corpuscular HGB Conc 29.7 g/dL (31.6-35.5); Mean Corpuscular Hemoglobin 27.4 pg (28.0-33.3); Mean Corpuscular Volume 92.3 fL (83.0-100.0); Mean Platelet Volume 10.9 fL (9.4-12.4); Monocytes # 0.3 K/mcL (0.0-1.3); Monocytes % 10.1 %; Neutrophils # 2.2 K/mcL (1.6-8.9); Platelet Count 147 K/mcL (140-400); Red Cell Distribution Width 15.2 % (11.5-14.5); Segmented Neutrophils % 68.2 %; White Blood Count 3.3 K/mcL (4.3-11.1)
[2020-03-28 21:44] LABS: BUN/Creatinine Ratio 12 (6-26); Blood Urea Nitrogen 10 mg/dL (8-23); Carbon Dioxide 37 mEq/L (23-29); Chloride 98 mEq/L (98-107); Glucose 131 mg/dL (70-105); Osmolality,Calculated 287 (280-300); Potassium 3.9 mEq/L (3.5-5.1); Sodium 138 mEq/L (136-145); eGFR For African Americans > 60 (> 60); eGFR For Non-African Americans > 60 (> 60)
[2020-03-28] MEDS ORDERED: Furosemide 20 MG/2 ML VIAL IVP ONE (22:36)
[2020-03-29 00:35] LABS: Adenovirus Not Detected (Not Detect); Bordetella Pertussis Not Detected (Not Detect); Chlamydophila pneumoniae Not Detected (Not Detect); Coronavirus 229E Not Detected (Not Detect); Coronavirus HKU1 Not Detected (Not Detect); Coronavirus NL63 Not Detected (Not Detect); Coronavirus OC43 Not Detected (Not Detect); Human Metapneumovirus Not Detected (Not Detect); Human Rhinovirus/Enterovirus Not Detected (Not Detect); Influenza A Subtype 2009 H1 Not Detected (Not Detect); Influenza B Not Detected (Not Detect); Mycoplasma pneumoniae Not Detected (Not Detect); Parainfluenza Virus 1 Not Detected (Not Detect); Parainfluenza Virus 2 Not Detected (Not Detect); Parainfluenza Virus 3 Not Detected (Not Detect); Parainfluenza Virus 4 Not Detected (Not Detect); Respiratory Syncytial Virus Not Detected (Not Detect); SARS-CoV-2 Not Detected (Not Detect)
[2020-03-29] MEDS: Acetaminophen 325 MG TABLET PO PRN (02:53)
[2020-03-29] MEDS: Isosorbide MONOnitrate (24 HR) 30 MG TAB.ER.24H PO SCH ×2 (02:54→19:45)
[2020-03-29] MEDS: Latanoprost 2.5 ML BOTTLE BOTH EYES SCH ×2 (02:54→19:47)
[2020-03-29] MEDS ORDERED: Levalbuterol 1 PUFF INHALER IH PRN (04:00)
[2020-03-29 06:03] LABS: Basophils % 0.3 %; Eosinophils # 0.1 K/mcL (0.0-0.6); Eosinophils % 4.1 %; Hematocrit 30.3 % (35.3-44.9); Immature Granulocytes % 0.3 % (0-4); Immature Platelets 4.7 % (1.1-6.1); Lymphocytes # 0.5 K/mcL (0.6-4.6); Lymphocytes % 16.1 %; Mean Corpuscular HGB Conc 29.7 g/dL (31.6-35.5); Mean Corpuscular Hemoglobin 27.9 pg (28.0-33.3); Mean Corpuscular Volume 93.8 fL (83.0-100.0); Mean Platelet Volume 11.1 fL (9.4-12.4); Monocytes # 0.3 K/mcL (0.0-1.3); Monocytes % 8.9 %; Neutrophils # 2.1 K/mcL (1.6-8.9); Platelet Count 134 K/mcL (140-400); Red Blood Count 3.23 M/mcL (3.82-4.97); Red Cell Distribution Width 14.8 % (11.5-14.5); Segmented Neutrophils % 70.3 %; White Blood Count 2.9 K/mcL (4.3-11.1)
[2020-03-29] MEDS ORDERED: OLOPATADINE HCL OP PRN (06:16)
[2020-03-29 06:22] LABS: Alanine Aminotransferase 7 Units/L (7-52); Albumin 3.6 g/dL (3.5-5.7); Albumin/Globulin Ratio 1.8 (1.1-2.2); Alkaline Phosphatase 63 Units/L (34-104); Aspartate Amino Transferase 13 Units/L (13-39); BUN/Creatinine Ratio 10 (6-26); Bilirubin,Total 0.5 mg/dL (0.3-1.0); Blood Urea Nitrogen 8 mg/dL (8-23); Carbon Dioxide 41 mEq/L (23-29); Chloride 99 mEq/L (98-107); Glucose 91 mg/dL (70-105); Osmolality,Calculated 292 (280-300); Potassium 3.5 mEq/L (3.5-5.1); Sodium 142 mEq/L (136-145); Total Protein 5.6 g/dL (6.4-8.9); eGFR For African Americans > 60 (> 60); eGFR For Non-African Americans > 60 (> 60)
[2020-03-29 07:24] LABS: Troponin I < 0.03 ng/mL (< 0.04)
[2020-03-29] MEDS ORDERED: Ondansetron 4 MG/2 ML VIAL IVP ONE (08:22)
[2020-03-29] MEDS: Furosemide 40 MG/4 ML VIAL IVP SCH ×2 (08:30→19:46)
[2020-03-29] MEDS: levETIRAcetam 250 MG TABLET PO SCH ×2 (08:31→19:45)
[2020-03-29] MEDS: *HR* Rivaroxaban 10 MG TABLET PO SCH (08:31)
[2020-03-29] MEDS: Aspirin Enteric Coated 81 MG Tablet PO SCH (08:31)
[2020-03-29] MEDS: carvediloL 6.25 MG TABLET PO SCH ×2 (08:32→16:28)
[2020-03-29] MEDS ORDERED: predniSONE 20 MG TABLET PO SCH (09:00)
[2020-03-29] MEDS: Spironolactone 25 MG TABLET PO SCH (10:13)
[2020-03-29] MEDS: *HR* Acetylcysteine 20% 600 MG/3 ML ORAL SYRINGE PO SCH ×2 (12:08→19:45)
[2020-03-30] MEDS: Acetaminophen 325 MG TABLET PO PRN (01:51)
[2020-03-30 07:04] LABS: Hematocrit 33.2 % (35.3-44.9); Hemoglobin 9.7 g/dL (11.5-15.4); Mean Corpuscular HGB Conc 29.2 g/dL (31.6-35.5); Mean Corpuscular Hemoglobin 27.6 pg (28.0-33.3); Mean Corpuscular Volume 94.6 fL (83.0-100.0); Mean Platelet Volume 10.8 fL (9.4-12.4); Platelet Count 161 K/mcL (140-400); Red Blood Count 3.51 M/mcL (3.82-4.97); Red Cell Distribution Width 14.6 % (11.5-14.5); White Blood Count 4.1 K/mcL (4.3-11.1)
[2020-03-30 07:26] LABS: BUN/Creatinine Ratio 13 (6-26); Blood Urea Nitrogen 10 mg/dL (8-23); Calcium 8.8 mg/dL (8.6-10.3); Carbon Dioxide 40 mEq/L (23-29); Chloride 95 mEq/L (98-107); Glucose 82 mg/dL (70-105); Osmolality,Calculated 290 (280-300); Potassium 4.1 mEq/L (3.5-5.1); Sodium 141 mEq/L (136-145); eGFR For African Americans > 60 (> 60); eGFR For Non-African Americans > 60 (> 60)
[2020-03-30] MEDS ORDERED: Ondansetron 4 MG/2 ML VIAL IVP ONE (07:57)
[2020-03-30] MEDS ORDERED: PROPYLENE GLYCOL BOTH EYES PRN (08:53)
[2020-03-30] MEDS ORDERED: Ondansetron 4 MG/2 ML VIAL IVP PRN (08:54)
[2020-03-30] MEDS: carvediloL 6.25 MG TABLET PO SCH ×2 (10:37→18:53)
[2020-03-30] MEDS: levETIRAcetam 250 MG TABLET PO SCH ×2 (10:37→21:04)
[2020-03-30] MEDS: Aspirin Enteric Coated 81 MG Tablet PO SCH (10:38)
[2020-03-30] MEDS: *HR* Rivaroxaban 10 MG TABLET PO SCH (10:38)
[2020-03-30] MEDS: Simethicone 80 MG TAB.CHEW PO SCH ×4 (10:38→21:03)
[2020-03-30] MEDS: Spironolactone 25 MG TABLET PO SCH (10:38)
[2020-03-30] MEDS: *HR* Acetylcysteine 20% 600 MG/3 ML ORAL SYRINGE PO SCH ×2 (10:40→21:13)
[2020-03-30] MEDS: polyethylene glycoL 3350 17 GM POWD.PACK PO SCH ×3 (10:40→21:36)
[2020-03-30] MEDS: Furosemide 40 MG/4 ML VIAL IVP SCH ×2 (10:40→21:14)
[2020-03-30] MEDS: Artificial Tears SOLN 15 ML BOTTLE OP SCH ×4 (10:41→21:35)
[2020-03-30] MEDS: Famotidine 20 MG TABLET PO SCH ×2 (10:57→21:03)
[2020-03-30 12:35] LABS: Bilirubin,Urine Negative (Negative); Blood,Urine Negative (Negative); Clarity,Urine Clear (Clear); Color,Urine Colorless (Yellow); Glucose,Urine (UA) Normal (Normal); Ketones,Urine Negative (Negative); Leukocyte Esterase,Urine Negative (Negative); Nitrite,Urine Negative (Negative); PH,Urine 7.5 pH Units (5.0-8.0); Protein,Urine Negative (Neg-Trace); Specific Gravity,Urine 1.005 (1.010-1.025); Urobilinogen,Urine Normal (Normal)
[2020-03-30] MEDS: Isosorbide MONOnitrate (24 HR) 30 MG TAB.ER.24H PO SCH (21:03)
[2020-03-30] MEDS: Latanoprost 2.5 ML BOTTLE BOTH EYES SCH (21:36)
[2020-03-31 02:22] LABS: BUN/Creatinine Ratio 15 (6-26); Blood Urea Nitrogen 11 mg/dL (8-23); Calcium 8.4 mg/dL (8.6-10.3); Carbon Dioxide 42 mEq/L (23-29); Chloride 94 mEq/L (98-107); Glucose 119 mg/dL (70-105); Magnesium 1.8 mg/dL (1.6-2.6); Osmolality,Calculated 295 (280-300); Phosphorous 3.1 mg/dL (2.7-4.5); Potassium 3.9 mEq/L (3.5-5.1); Sodium 142 mEq/L (136-145); eGFR For African Americans > 60 (> 60); eGFR For Non-African Americans > 60 (> 60)
[2020-03-31] MEDS ORDERED: *HR* Promethazine 25 MG/ML VIAL IVP ONE (08:11)
[2020-03-31] MEDS: *HR* Acetylcysteine 20% 600 MG/3 ML ORAL SYRINGE PO SCH ×2 (09:00→22:22)
[2020-03-31] MEDS: polyethylene glycoL 3350 17 GM POWD.PACK PO SCH ×3 (09:00→22:25)
[2020-03-31] MEDS: Simethicone 80 MG TAB.CHEW PO SCH ×4 (09:00→22:23)
[2020-03-31] MEDS: levETIRAcetam 250 MG TABLET PO SCH ×2 (09:01→22:24)
[2020-03-31] MEDS: carvediloL 6.25 MG TABLET PO SCH ×2 (09:01→17:47)
[2020-03-31] MEDS: Spironolactone 25 MG TABLET PO SCH (09:01)
[2020-03-31] MEDS: Aspirin Enteric Coated 81 MG Tablet PO SCH (09:02)
[2020-03-31] MEDS: *HR* Rivaroxaban 10 MG TABLET PO SCH (09:02)
[2020-03-31] MEDS: Furosemide 40 MG/4 ML VIAL IVP SCH ×2 (09:02→22:24)
[2020-03-31] MEDS: Artificial Tears SOLN 15 ML BOTTLE OP SCH ×4 (09:10→22:23)
[2020-03-31] MEDS: Famotidine 20 MG TABLET PO SCH (22:26)
[2020-03-31] MEDS: Latanoprost 2.5 ML BOTTLE BOTH EYES SCH (22:26)
[2020-03-31] MEDS: Isosorbide MONOnitrate (24 HR) 30 MG TAB.ER.24H PO SCH (22:26)
[2020-04-01 05:06] LABS: BUN/Creatinine Ratio 24 (6-26); Blood Urea Nitrogen 17 mg/dL (8-23); Calcium 9.2 mg/dL (8.6-10.3); Carbon Dioxide 38 mEq/L (23-29); Chloride 99 mEq/L (98-107); Glucose 110 mg/dL (70-105); Magnesium 2.2 mg/dL (1.6-2.6); Osmolality,Calculated 300 (280-300); Phosphorous 3.6 mg/dL (2.7-4.5); Potassium 5.4 mEq/L (3.5-5.1); Sodium 144 mEq/L (136-145); eGFR For African Americans > 60 (> 60); eGFR For Non-African Americans > 60 (> 60)
[2020-04-01] MEDS: Furosemide 40 MG TABLET PO SCH ×2 (09:27→16:29)
[2020-04-01] MEDS: Simethicone 80 MG TAB.CHEW PO SCH ×4 (09:27→20:54)
[2020-04-01] MEDS: levETIRAcetam 250 MG TABLET PO SCH ×2 (09:27→20:54)
[2020-04-01] MEDS: carvediloL 6.25 MG TABLET PO SCH ×2 (09:27→16:29)
[2020-04-01] MEDS: Spironolactone 25 MG TABLET PO SCH (09:28)
[2020-04-01] MEDS: *HR* Rivaroxaban 10 MG TABLET PO SCH (09:28)
[2020-04-01] MEDS: polyethylene glycoL 3350 17 GM POWD.PACK PO SCH ×3 (09:28→21:01)
[2020-04-01] MEDS: Aspirin Enteric Coated 81 MG Tablet PO SCH (09:28)
[2020-04-01] MEDS: *HR* Acetylcysteine 20% 600 MG/3 ML ORAL SYRINGE PO SCH ×2 (09:28→20:53)
[2020-04-01] MEDS: Artificial Tears SOLN 15 ML BOTTLE OP SCH ×4 (09:29→20:53)
[2020-04-01 09:56] LABS: BUN/Creatinine Ratio 20 (6-26); Blood Urea Nitrogen 16 mg/dL (8-23); Calcium 9.2 mg/dL (8.6-10.3); Carbon Dioxide > 45 mEq/L (23-29); Chloride 94 mEq/L (98-107); Glucose 107 mg/dL (70-105); Osmolality,Calculated 294 (280-300); Potassium 4.1 mEq/L (3.5-5.1); Sodium 141 mEq/L (136-145); eGFR For African Americans > 60 (> 60); eGFR For Non-African Americans > 60 (> 60)
[2020-04-01] MEDS ORDERED: Furosemide 20 MG/2 ML VIAL IVP ONE (10:53)
[2020-04-01] MEDS ORDERED: Ipratropium/Albuterol Neb 3 ML ONE (11:08)
[2020-04-01] MEDS: Ipratropium/Albuterol Neb 3 ML IH SCH ×3 (15:02→21:08)
[2020-04-01] MEDS: Latanoprost 2.5 ML BOTTLE BOTH EYES SCH (20:52)
[2020-04-01] MEDS: Famotidine 20 MG TABLET PO SCH (20:53)
[2020-04-01] MEDS: Isosorbide MONOnitrate (24 HR) 30 MG TAB.ER.24H PO SCH (20:58)
[2020-04-01] MEDS: Budesonide/Formoterol 160/4.5 1 PUFF INH IH SCH (21:08)
[2020-04-02 02:36] LABS: BUN/Creatinine Ratio 22 (6-26); Blood Urea Nitrogen 22 mg/dL (8-23); Calcium 8.8 mg/dL (8.6-10.3); Carbon Dioxide 45 mEq/L (23-29); Chloride 93 mEq/L (98-107); Glucose 138 mg/dL (70-105); Magnesium 1.9 mg/dL (1.6-2.6); Osmolality,Calculated 300 (280-300); Phosphorous 3.4 mg/dL (2.7-4.5); Potassium 4.3 mEq/L (3.5-5.1); Sodium 142 mEq/L (136-145); eGFR For African Americans > 60 (> 60); eGFR For Non-African Americans 54 (> 60)
[2020-04-02] MEDS: Ipratropium/Albuterol Neb 3 ML IH SCH ×2 (03:13→10:13)
[2020-04-02 07:09] VITALS: BP 122/73
[2020-04-02] MEDS: Simethicone 80 MG TAB.CHEW PO SCH (09:04)
[2020-04-02] MEDS: *HR* Acetylcysteine 20% 600 MG/3 ML ORAL SYRINGE PO SCH (09:06)
[2020-04-02] MEDS: carvediloL 6.25 MG TABLET PO SCH (09:08)
[2020-04-02] MEDS: *HR* Rivaroxaban 10 MG TABLET PO SCH (09:08)
[2020-04-02] MEDS: levETIRAcetam 250 MG TABLET PO SCH (09:10)
[2020-04-02] MEDS: Spironolactone 25 MG TABLET PO SCH (09:10)
[2020-04-02] MEDS: Furosemide 40 MG TABLET PO SCH (09:10)
[2020-04-02] MEDS: Aspirin Enteric Coated 81 MG Tablet PO SCH (09:10)
[2020-04-02] MEDS: polyethylene glycoL 3350 17 GM POWD.PACK PO SCH (09:11)
[2020-04-02] MEDS: Artificial Tears SOLN 15 ML BOTTLE OP SCH (09:11)
[2020-04-02] MEDS: Budesonide/Formoterol 160/4.5 1 PUFF INH IH SCH (10:13)
== END 2020-04-02 11:35 | disposition home health service (06) | DRG 292 ==
LOC: 3BNU 19:24 → EMEROOARM 19:24 → SUATTDRO 03-29 00:50 → 3BNU 03-29 00:57
PROVIDERS: ADMIT Student in an Organized Health Care Education/Training Program; ATTEND Internal Medicine